=== PATIENT | female | born 1950 | race Caucasian/White ===

== ENCOUNTER 2016-08-21 16:04 | Emergency (ER) | payer OTHER, MEDICARE ==
[~2016-08-21 16:04] MED LIST: /ESOM40CA PO; ASPI81TA7 PO; FLUO20CA8 PO; JANU100T PO; LIPI80TA PO; LYRI150C PO; META800T82 PO; METATAB PO; METF500T PO; NITR0.4D6 TD; PLAQ200T PO; TRAM37.5 PO; UREA CREAM TOP; VERA27.5; VICOBULK PO; VITAD1000T PO; VOLTAREN GEL TOP; XANA0.5T PO; ZEST20TA8 PO
[2016-08-21] MEDS ORDERED: IBUPROFEN 600 MG TAB As Ordered ONE (18:28)
--- NOTE | 2016-08-21 18:44 | REP ---
Right wrist four views: Mineralization joint spaces are normal. There is no fracture or dislocation. There are calcifications distal to the ulnar styloid process likely degenerative ligamentous calcifications or vascular calcified atheroma. 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 Impression: No fracture or dislocation. Signed by Mor Sabillon MD 08/21/2016 06:37 P
--- NOTE | 2016-08-21 18:47 | REP ---
Right hip three views including AP pelvis and AP and frog-leg views of the hip. There are no comparisons. AP pelvis: No pelvic fractures are identified. There postsurgical disc spacers in the L5 S1 disc space. There are pelvic calcifications likely phleboliths. No right or left hip fractures are identified. Sacroiliac articulations are unremarkable. Impression: No pelvic fractures are identified. Left hip AP and frog-leg views: There is no fracture or dislocation. No femoral head deformity. No calcifications or foreign bodies. Impression: Negative left hip. Signed by Mor Sabillon MD 08/21/2016 06:39 P
--- NOTE | 2016-08-21 19:08 | EDDOCDS ---
Physician Documentation [facility] Name: Anel Houser Age: 65 yrs Sex: Female : 1950 Arrival Date: 08/21/2016 Time: 16:04 Bed I9 / 22 Private MD: Adrian Lin MD Disposition: 08/21/16 18:47 Discharged to Home/Self Care. Impression: Sprain of other part of right wrist and hand, Contusion of left hip. - Condition is Stable. - Discharge Instructions: Wrist Pain, Hip Pain. - Prescriptions for Ibuprofen 600 mg Oral Tablet - take 1 tablet by ORAL route every 6 hours As needed take with food; 30 tablet. - Medication Reconciliation, Local Pharmacy Hours form. - Follow up: Adrian Lin; When: As needed; Reason: Recheck today's complaints, Continuance of care. - Problem is new. - Symptoms are unchanged. Historical: - Allergies: Demerol (Vomit); Morphine (Vomit); PENICILLINS (Hives); - Home Meds: 1. Coreg Unknown Oral daily 2. hydroxychloroquine 200 mg oral tab 1 tab 2 times per day 3. Lipitor 20 mg Oral tab 1 tab once daily 4. lisinopril-hydrochlorothiazide 20-25 mg oral tab 1 tab once daily 5. Lyrica 150 mg Oral 2 times per day 6. metformin 500 mg Oral tr24 1 tab three times a day 7. Prozac 20 mg Oral cap 1 cap once daily 8. Reglan 10 mg Oral tab as needed 9. Xanax 0.5 mg Oral tab 1 tab daily 10. Januvia oral Unknown oral once daily 11. Zantac 150 mg oral cap 2 times per day - PMHx: Anxiety; Depression; Diabetes - NIDDM: controlled; Hypercholesterolemia; Hypertension; GERD; heart disease; - PSHx: Spinal Fusion; Cardiac stents (May 2004); Appendectomy; Arthroscopy, Knee- Left; Rotator Cuff Repair- Left; Arthroscopy, Knee- Right; Rotator Cuff Repair- Right; - Social history: Smoking status: Patient states was never smoker of tobacco. No barriers to communication noted, The patient speaks fluent Kyrgyz, Speaks appropriately for age. - Family history: Not pertinent. - : The pt / caregiver states he / she is not on anticoagulants. Home medication list is obtained from the patient. - Exposure Risk Screening:: None identified. Vital Signs: 08/21 16:06 BP 158 / 82; Pulse 68; Resp 16; Temp 98.2(O); Pulse Ox 100% on R/A; Weight 70.76 kg / elp 156 lbs (R); Height 5 ft. 0 in. (152.40 cm) (R); Pain 8/10; 19:02 BP 149 / 86; Pulse 77; Resp 16; Temp 97.0(O); Pulse Ox 100% on R/A; Pain 3/10; kpj 16:06 Body Mass Index 30.47 (70.76 kg, 152.40 cm) elp MDM: 18:14 Ibuprofen 600 mg PO once ordered. ke 18:17 Wrist, Complete Ordered. EDMS 18:17 Hip,AP,LAT to include Pelvis Ordered. EDMS Administered Medications: 18:30 Drug: Ibuprofen 600 mg [ibuprofen 600 mg tablet (1 tabs)] Route: PO; [facility] Signatures: Dispatcher [employer] EDMS Mai Montgomery RN RN kpj Michelson, Staci, RN RN srm Elsner, Karl, Angela Finn RN, mcp EDWARD
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
--- NOTE | 2016-08-23 20:08 | EDDOCDS ---
Physician Documentation [facility] Name: Anel Houser Age: 65 yrs Sex: Female : 1950 Arrival Date: 08/21/2016 Time: 16:04 Bed I9 / 22 Private MD: Adrian Lin MD Disposition: 08/21/16 18:47 Discharged to Home/Self Care. Impression: Sprain of other part of right wrist and hand, Contusion of left hip. - Condition is Stable. - Discharge Instructions: Wrist Pain, Hip Pain. - Prescriptions for Ibuprofen 600 mg Oral Tablet - take 1 tablet by ORAL route every 6 hours As needed take with food; 30 tablet. - Medication Reconciliation, Local Pharmacy Hours form. - Follow up: Adrian Lin; When: As needed; Reason: Recheck today's complaints, Continuance of care. - Problem is new. - Symptoms are unchanged. Historical: - Allergies: Demerol (Vomit); Morphine (Vomit); PENICILLINS (Hives); - Home Meds: 1. Coreg Unknown Oral daily 2. hydroxychloroquine 200 mg oral tab 1 tab 2 times per day 3. Lipitor 20 mg Oral tab 1 tab once daily 4. lisinopril-hydrochlorothiazide 20-25 mg oral tab 1 tab once daily 5. Lyrica 150 mg Oral 2 times per day 6. metformin 500 mg Oral tr24 1 tab three times a day 7. Prozac 20 mg Oral cap 1 cap once daily 8. Reglan 10 mg Oral tab as needed 9. Xanax 0.5 mg Oral tab 1 tab daily 10. Januvia oral Unknown oral once daily 11. Zantac 150 mg oral cap 2 times per day - PMHx: Anxiety; Depression; Diabetes - NIDDM: controlled; Hypercholesterolemia; Hypertension; GERD; heart disease; - PSHx: Spinal Fusion; Cardiac stents (May 2004); Appendectomy; Arthroscopy, Knee- Left; Rotator Cuff Repair- Left; Arthroscopy, Knee- Right; Rotator Cuff Repair- Right; - Social history: Smoking status: Patient states was never smoker of tobacco. No barriers to communication noted, The patient speaks fluent Korean, Speaks appropriately for age. - Family history: Not pertinent. - : The pt / caregiver states he / she is not on anticoagulants. Home medication list is obtained from the patient. - Exposure Risk Screening:: None identified. Vital Signs: 08/21 16:06 BP 158 / 82; Pulse 68; Resp 16; Temp 98.2(O); Pulse Ox 100% on R/A; Weight 70.76 kg / elp 156 lbs (R); Height 5 ft. 0 in. (152.40 cm) (R); Pain 8/10; 19:02 BP 149 / 86; Pulse 77; Resp 16; Temp 97.0(O); Pulse Ox 100% on R/A; Pain 3/10; kpj 16:06 Body Mass Index 30.47 (70.76 kg, 152.40 cm) elp MDM: 18:14 Ibuprofen 600 mg PO once ordered. ke 18:17 Wrist, Complete Ordered. EDMS 18:17 Hip,AP,LAT to include Pelvis Ordered. EDMS 08/22 12:46 T-Sheet-- Draft Copy was scanned into [employer] and attached to record. gb Administered Medications: 08/21 18:30 Drug: Ibuprofen 600 mg [ibuprofen 600 mg tablet (1 tabs)] Route: PO; mcp Signatures: Dispatcher [employer] EDIN Mai Montgomery RN RN kpj Michelson, Staci, RN RN srm Zainab Patiño, Reg Reg Bob Serrano FNP FNP ke Peters, Mary RN mcp The chart was reviewed and I authenticate all verbal orders and agree with the evaluation and treatment provided.Attachments: 08/22 12:46 T-Sheet-- Draft Copy gb Chart Complete MTDD
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
--- NOTE | 2016-08-23 20:08 | EDDOCDS ---
Physician Documentation [facility] Name: Anel Houser Age: 65 yrs Sex: Female : 1950 Arrival Date: 08/21/2016 Time: 16:04 Bed I9 / 22 Private MD: Adrian Lin MD Disposition: 08/21/16 18:47 Discharged to Home/Self Care. Impression: Sprain of other part of right wrist and hand, Contusion of left hip. - Condition is Stable. - Discharge Instructions: Wrist Pain, Hip Pain. - Prescriptions for Ibuprofen 600 mg Oral Tablet - take 1 tablet by ORAL route every 6 hours As needed take with food; 30 tablet. - Medication Reconciliation, Local Pharmacy Hours form. - Follow up: Adrian Lin; When: As needed; Reason: Recheck today's complaints, Continuance of care. - Problem is new. - Symptoms are unchanged. Historical: - Allergies: Demerol (Vomit); Morphine (Vomit); PENICILLINS (Hives); - Home Meds: 1. Coreg Unknown Oral daily 2. hydroxychloroquine 200 mg oral tab 1 tab 2 times per day 3. Lipitor 20 mg Oral tab 1 tab once daily 4. lisinopril-hydrochlorothiazide 20-25 mg oral tab 1 tab once daily 5. Lyrica 150 mg Oral 2 times per day 6. metformin 500 mg Oral tr24 1 tab three times a day 7. Prozac 20 mg Oral cap 1 cap once daily 8. Reglan 10 mg Oral tab as needed 9. Xanax 0.5 mg Oral tab 1 tab daily 10. Januvia oral Unknown oral once daily 11. Zantac 150 mg oral cap 2 times per day - PMHx: Anxiety; Depression; Diabetes - NIDDM: controlled; Hypercholesterolemia; Hypertension; GERD; heart disease; - PSHx: Spinal Fusion; Cardiac stents (May 2004); Appendectomy; Arthroscopy, Knee- Left; Rotator Cuff Repair- Left; Arthroscopy, Knee- Right; Rotator Cuff Repair- Right; - Social history: Smoking status: Patient states was never smoker of tobacco. No barriers to communication noted, The patient speaks fluent Faroese, Speaks appropriately for age. - Family history: Not pertinent. - : The pt / caregiver states he / she is not on anticoagulants. Home medication list is obtained from the patient. - Exposure Risk Screening:: None identified. Vital Signs: 08/21 16:06 BP 158 / 82; Pulse 68; Resp 16; Temp 98.2(O); Pulse Ox 100% on R/A; Weight 70.76 kg / elp 156 lbs (R); Height 5 ft. 0 in. (152.40 cm) (R); Pain 8/10; 19:02 BP 149 / 86; Pulse 77; Resp 16; Temp 97.0(O); Pulse Ox 100% on R/A; Pain 3/10; kpj 16:06 Body Mass Index 30.47 (70.76 kg, 152.40 cm) elp MDM: 18:14 Ibuprofen 600 mg PO once ordered. ke 18:17 Wrist, Complete Ordered. EDMS 18:17 Hip,AP,LAT to include Pelvis Ordered. EDMS 08/22 12:46 T-Sheet-- Draft Copy was scanned into [employer] and attached to record. gb Administered Medications: 08/21 18:30 Drug: Ibuprofen 600 mg [ibuprofen 600 mg tablet (1 tabs)] Route: PO; mcp Signatures: Dispatcher [employer] EDNY Mai Montgomery RN RN kpj Michelson, Staci, RN RN srm Zainab Patiño, Reg Reg Bob Serrano FNP FNP ke Peters, Mary RN mcp The chart was reviewed and I authenticate all verbal orders and agree with the evaluation and treatment provided.Attachments: 08/22 12:46 T-Sheet-- Draft Copy gb Chart Complete MTDD
== END 2016-08-21 19:07 | disposition home or self-care (01) ==
LOC: M ED 16:04
DX: S63.8X1A Sprain of other part of right wrist and hand, initial encounter (principal); S70.02XA Contusion of left hip, initial encounter; W50.0XXA Accidental hit or strike by another person, initial encounter; Y92.512 Supermarket, store or market as the place of occurrence of the external cause; Y93.89 Activity, other specified; Y99.8 Other external cause status; F41.9 Anxiety disorder, unspecified; F32.9 Major depressive disorder, single episode, unspecified; E11.9 Type 2 diabetes mellitus without complications; E78.00 Pure hypercholesterolemia, unspecified; I10 Essential (primary) hypertension; K21.9 Gastro-esophageal reflux disease without esophagitis; I25.10 Atherosclerotic heart disease of native coronary artery without angina pectoris; Z79.899 Other long term (current) drug therapy; Z88.8 Allergy status to other drugs, medicaments and biological substances; Z88.0 Allergy status to penicillin; Z88.5 Allergy status to narcotic agent; Z95.9 Presence of cardiac and vascular implant and graft, unspecified

== ENCOUNTER → 2017-04-05 | Outpatient (REF) | payer MEDICARE, OTHER | LOC: M LAB REF 17:04 | PROVIDERS: ATTEND Otolaryngology | DX: D10.30 Benign neoplasm of unspecified part of mouth (principal) ==

== ENCOUNTER 2017-04-07 13:05 | Emergency (ER) | payer MEDICARE, OTHER ==
[~2017-04-07] VITALS: Ht 152.4 cm; Wt 69.5 kg
[2017-04-07] MEDS ORDERED: ASPIRIN 81 MG CHEW TABLET PO ONE (13:45)
[2017-04-07 14:16] LABS: BASO # 0.1 K/mm3 (0.0-0.2); BASO % 1.2 % (0.0-1.0); EOS # 0.2 K/mm3 (0.0-0.50); EOS % 4.1 % (0.0-3.0); LARGE UNSTAINED CELL # 0.1 K/mm3 (0.0-0.4); LARGE UNSTAINED CELL % 2.5 % (0.0-4.0); LYMPH # 1.1 K/mm3 (1.5-4.5); LYMPH % 19.5 % (24.0-44.0); MEAN CORPUSCULAR HEMOGLOBIN 27.8 pg (27.0-33.0); MEAN CORPUSCULAR HGB CONC 33.6 g/dl (32.0-36.5); MEAN CORPUSCULAR VOLUME 82.8 fl (80.0-96.0); MONO # 0.3 K/mm3 (0.0-0.8); MONO % 4.3 % (0.0-5.0); NEUTROPHILS % 68.4 % (36.0-66.0); PLATELET COUNT, AUTOMATED 239 k/mm3 (150-450); RED CELL DISTRIBUTION WIDTH 13.7 % (11.5-14.5); WHITE BLOOD COUNT 5.8 K/mm3 (4.0-10.0)
[2017-04-07 14:21] LABS: INR 0.96
[2017-04-07 14:38] LABS: ALBUMIN 3.7 GM/DL (3.2-5.2); ALBUMIN/GLOBULIN RATIO 1.03 (1.00-1.93); ALKALINE PHOSPHATASE 59 U/L (45-117); ALT/SGPT 53 U/L (12-78); ANION GAP 9 MEQ/L (8-16); AST/SGOT 23 U/L (15-37); BILIRUBIN,DIRECT < 0.1 MG/DL (0.0-0.2); BILIRUBIN,TOTAL 0.3 MG/DL (0.2-1.0); BLOOD UREA NITROGEN 11 MG/DL (7-18); CARBON DIOXIDE LEVEL 28 MEQ/L (21-32); CHLORIDE LEVEL 106 MEQ/L (98-107); CREATININE FOR GFR 0.77 MG/DL (0.55-1.02); FREE T4 0.87 NG/DL (0.76-1.46); GLOMERULAR FILTRATION RATE > 60.0 (>45); GLUCOSE, FASTING 109 MG/DL (80-110); POTASSIUM SERUM 4.1 MEQ/L (3.5-5.1); SODIUM LEVEL 143 MEQ/L (136-145); TOTAL PROTEIN 7.3 GM/DL (6.4-8.2)
--- NOTE | 2017-04-07 14:44 | REP ---
Clinical: Right upper quadrant pain. Technique: Real time de la torre scale ultrasound examination using curved array transducer. Findings: Diffuse fatty infiltration to the liver is appreciated with poor through transmission. No obvious focal hepatic lesion identified. Visualized portions of the pancreas are unremarkable but limited due to interposed bowel gas. Visualized portions of the gallbladder appear normal and without wall thickening or obvious gallstones however the neck of the gallbladder is incompletely evaluated due to interposed bowel gas and poor through transmission. No biliary ductal dilatation is appreciated and the common bile duct measures 3.2 mm diameter. The right kidney is normal in reniform shape without hydronephrosis and measures 11.1 x 4.1 x 4.6 cm. No ascites. Impression: Limited examination. Fatty infiltration to the liver without focal hepatic lesion. Incomplete evaluation of the gallbladder neck. However no wall thickening, pericholecystic fluid or biliary ductal dilatation is appreciated. Signed by Scot Santoyo MD 04/07/2017 02:36 P
[2017-04-07] MEDS: NITROGLYCERIN 0.4 MG SUBL TABLET SL PRN ×2 (14:45→14:50)
[2017-04-07 14:50] VITALS: BP 125/65
--- NOTE | 2017-04-07 14:55 | REP ---
Clinical: Chest pain . Comparison: 06/09/2012 . Technique: PA and lateral. Findings: The mediastinum and cardiac silhouette are normal. The lung ring are clear and without acute consolidation, effusion, or pneumothorax. The skeletal structures are intact and normal. Impression: 1. No acute cardiopulmonary process. Signed by Scot Santoyo MD 04/07/2017 02:47 P
[2017-04-07] MEDS ORDERED: ISOVUE-370 76% 100ML VIAL (Q9967) As Ordered ONE (15:14)
--- NOTE | 2017-04-07 16:20 | REP ---
Clinical: Acute chest pain and shortness of breath . Technique: Axial contrast enhanced images from the thoracic inlet to the upper abdomen using 100 ml Isovue 370 intravenous contrast material with multiplanar re-formations. Findings: Satisfactory enhancement of the pulmonary vasculature is achieved and no filling defects are identified to suggest pulmonary embolus. Further evaluation of the mediastinum demonstrates atherosclerotic changes to the thoracic aorta and coronary arteries without aortic aneurysm/dissection or cardiomegaly. No pericardial effusion. The bilateral lung ring are well aerated without consolidation pleural effusion or pneumothorax. Minimal lingular and right basilar chronic changes noted. Tracheobronchial tree is patent. No adenopathy noted. Surrounding musculoskeletal structures intact. Impression: No evidence for pulmonary embolus. No acute mediastinal or pleural parenchymal process. Minimal chronic basilar scarring. Signed by Scot Santoyo MD 04/07/2017 04:12 P
[2017-04-07 18:09] VITALS: BP 128/61
--- NOTE | 2017-04-08 07:57 | ECGEPIP ---
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
== END 2017-04-07 18:10 | disposition home or self-care (01) ==
LOC: M ED 13:05
DX: R07.9 Chest pain, unspecified (principal); E11.9 Type 2 diabetes mellitus without complications; I10 Essential (primary) hypertension; J84.10 Pulmonary fibrosis, unspecified; E78.5 Hyperlipidemia, unspecified; G47.30 Sleep apnea, unspecified; Z79.899 Other long term (current) drug therapy; Z79.82 Long term (current) use of aspirin; Z79.84 Long term (current) use of oral hypoglycemic drugs; Z88.8 Allergy status to other drugs, medicaments and biological substances; Z88.5 Allergy status to narcotic agent; Z88.0 Allergy status to penicillin; I25.2 Old myocardial infarction; Z95.5 Presence of coronary angioplasty implant and graft
CPT/HCPCS: 71020; 71275; 76705; 80048; 80076; 82550; 82553; 83690; 83880; 84439; 84443; 84484; 85025; 85610; 85730; 93005; 93041; 94760; 99284; Q9967

== ENCOUNTER → 2017-06-05 | Outpatient (CLI) | payer MEDICARE ==
--- NOTE | 2017-06-05 10:43 | REP ---
HIDA SCAN WITH GALLBLADDER EJECTION FRACTION: Following the intravenous administration of 6.6 millicuries technetium 99m Mebrofenin, multiple images of the right upper quadrant are performed every 5 minutes for a period of 1 hour. The gallbladder visualized at 15 minutes post injection. There is no biliary to bowel transit by 1 hour, which may represent a hypertonic sphincter of Oddi. At 1 hour vasquez, 8 ounces of Ensure Enlive is ingested. Further imaging performed for 1 hour. There is biliary to bowel transit at about 5 minutes after ingestion of the Ensure. Gallbladder activity is measured and the gallbladder ejection fraction is 97%, which is normal. IMPRESSION: Delayed biliary to bowel transit may indicate a hypertonic sphincter of Oddi. Normal gallbladder ejection fraction. Signed by Mor Gallegos MD 06/05/2017 11:48 A
== END ==
LOC: M RAD 07:41
PROVIDERS: ATTEND Internal Medicine Gastroenterology
DX: R10.9 Unspecified abdominal pain (principal)
CPT/HCPCS: 78227; A9537; J2805

== ENCOUNTER → 2017-10-31 | Outpatient (REF) | payer MEDICARE, MEDICAID ==
[2017-11-05 14:13] LABS: HPV HYBRID CAPTURE II Negative (Negative)
== END ==
LOC: M SFHCWAGY 14:54
DX: Z12.4 Encounter for screening for malignant neoplasm of cervix (principal)
CPT/HCPCS: G0123

== ENCOUNTER → 2017-10-31 | Outpatient (CLI) | payer MEDICARE, MEDICAID | LOC: M WHC 14:26 | DX: Z01.419 Encounter for gynecological examination (general) (routine) without abnormal findings (principal); Z12.31 Encounter for screening mammogram for malignant neoplasm of breast; Z78.0 Asymptomatic menopausal state; Z80.0 Family history of malignant neoplasm of digestive organs; Z92.23 Personal history of estrogen therapy | CPT/HCPCS: G0123 ==

== ENCOUNTER 2018-10-27 16:50 | Inpatient (IN) | payer MEDICAID, MEDICARE ==
[~2018-10-27] VITALS: Ht 152.4 cm; Wt 70.0 kg
[~2018-10-27 16:50] MED LIST changes: -/ESOM40CA PO; +HYDR12.55 PO; +METF10004 PO; +NEXI1CAP3 PO; +PERC5TAB12 PO
[2018-10-27] MEDS ORDERED: [UNRECOGNIZED DRUG - OTHER] SQ (17:04)
[2018-10-27] MEDS ORDERED: CARVEDILOL PO (17:04)
[2018-10-27] MEDS ORDERED: ONDANSETRON 4MG/2ML VIAL (J2405) IV ONE ×2 (17:45→21:15)
[2018-10-27 17:47] LABS: BASO # 0.1 10^3/uL (0.0-0.2); BASO % 0.4 % (0.0-1.0); EOS # 0.2 10^3/uL (0.0-0.50); EOS % 1.5 % (0.0-3.0); HEMATOCRIT 40.4 % (36.0-47.0); HEMOGLOBIN 12.8 g/dl (12.0-15.5); LYMPH # 0.9 10^3/uL (1.5-4.5); LYMPH % 6.7 % (24.0-44.0); MEAN CORPUSCULAR HEMOGLOBIN 26.1 pg (27.0-33.0); MEAN CORPUSCULAR HGB CONC 31.7 g/dl (32.0-36.5); MEAN CORPUSCULAR VOLUME 82.3 fl (80.0-96.0); MONO # 0.7 10^3/uL (0.0-0.8); MONO % 5.2 % (0.0-5.0); NEUTROPHILS # 11.8 10^3/uL (1.8-7.7); NEUTROPHILS % 85.8 % (36.0-66.0); PLATELET COUNT, AUTOMATED 294 10^3/uL (150-450); RED BLOOD COUNT 4.91 10^6/uL (4.00-5.40); WHITE BLOOD COUNT 13.7 10^3/uL (4.0-10.0)
[2018-10-27 18:03] LABS: ALT/SGPT 55 U/L (12-78); BILIRUBIN,DIRECT 0.1 MG/DL (0.0-0.2); BILIRUBIN,TOTAL 0.4 MG/DL (0.2-1.0); BLOOD UREA NITROGEN 16 MG/DL (7-18); CARBON DIOXIDE LEVEL 27 MEQ/L (21-32); CHLORIDE LEVEL 104 MEQ/L (98-107); CPK CREATINE PHOSPHOKINASE 180 U/L (26-192); CREATININE FOR GFR 0.86 MG/DL (0.55-1.30); GLOMERULAR FILTRATION RATE > 60.0 (>45); GLUCOSE, FASTING 167 MG/DL (70-100); LIPASE 255 U/L (73-393); MB/CK RELATIVE INDEX 1.11 (< OR =4); POTASSIUM SERUM 3.9 MEQ/L (3.5-5.1); SODIUM LEVEL 137 MEQ/L (136-145); TOTAL PROTEIN 7.7 GM/DL (6.4-8.2); TROPONIN I < 0.02 NG/ML (< 0.10)
--- NOTE | 2018-10-27 18:06 | REP ---
Portable chest, 05:41 p.m., single AP upright view: Comparison is 04/07/2017. There is discoid atelectasis inferiorly in the left lung. There is mild interstitial coarsening compatible with vascular engorgement. There are no masses or nodules. No pleural effusions. Cardiac size is upper normal. Electronically Signed by Mor Sabillon MD 10/27/2018 05:58 P
[2018-10-27] MEDS ORDERED: ISOVUE-370 76% 100ML VIAL (Q9967) As Ordered ONE (18:22)
[2018-10-27 18:52] LABS: NT-PRO BNP 154 PG/ML (<125)
--- NOTE | 2018-10-27 19:41 | REPVR ---
EXAM: CT Angiography Chest With Contrast EXAM DATE/TIME: 10/27/2018 6:27 PM CLINICAL HISTORY: 67 years old, female; Signs and symptoms; Other: R/O pe TECHNIQUE: Imaging protocol: Axial computed tomographic angiography images of the chest with intravenous contrast using CT angiography protocol. Coronal and sagittal reformatted images were created and reviewed. 3D rendering: MIP reconstructed images were created and reviewed. Radiation optimization: All CT scans at this facility use at least one of these dose optimization techniques: automated exposure control; mA and/or kV adjustment per patient size (includes targeted exams where dose is matched to clinical indication); or iterative reconstruction. Contrast material: ISOVUE 370 Contrast volume: 100 ml Contrast route: IV COMPARISON: CT ANGIO CHEST 04/07/2017 3:31 PM FINDINGS: Pulmonary arteries: There is opacification of the pulmonary arteries with no evidence of pulmonary embolus. Aorta: There is opacification of the aorta which appears intact. Lungs: There is a small amount of fluid in the major and minor fissures. There are hazy/patchy areas of interstitial density throughout both lungs which may represent interstitial infiltrate or interstitial edema/patchy congestive change. Pleural space: There is no evidence of pneumothorax. Heart: There is mild cardiomegaly. There is a small amount of pericardial effusion. Lymph nodes: Unremarkable. No enlarged lymph nodes. Bones/joints: Prominent osteophyte formation of the thoracic spine on the right. Soft tissues: Unremarkable. IMPRESSION: 1. No evidence of pulmonary embolus. 2. There is hazy and patchy interstitial density throughout both lungs which could be patchy edema or patchy interstitial infiltrate. This is throughout both lungs. 3. Small amount of fluid in the major and minor fissures. Electronically signed by: Paul Owen On 10/27/2018 19:41:20 PM
--- NOTE | 2018-10-27 19:56 | REPVR ---
EXAM: CT Abdomen and Pelvis With Contrast EXAM DATE/TIME: 10/27/2018 6:27 PM CLINICAL HISTORY: 67 years old, female; Pain; Abdominal pain; Epigastric; Prior surgery; Surgery date: 6+ months; Surgery type: Hysterectomy; Additional info: Upper abd pain TECHNIQUE: Imaging protocol: Axial computed tomography images of the abdomen and pelvis with intravenous contrast. Coronal and sagittal reformatted images were created and reviewed. Radiation optimization: All CT scans at this facility use at least one of these dose optimization techniques: automated exposure control; mA and/or kV adjustment per patient size (includes targeted exams where dose is matched to clinical indication); or iterative reconstruction. Contrast material: ISOVUE 370 Contrast volume: 100 ml Contrast route: IV COMPARISON: CT ABD PELVIS W/O FOL BY WIT 10/18/2015 1:17 PM FINDINGS: Lower thorax: No acute findings. ABDOMEN: Liver: There is severe fatty infiltration of the liver. Gallbladder and bile ducts: Normal common bile duct. Pancreas: Normal appearing pancreas. Spleen: Normal appearing spleen. Adrenals: Normal appearing adrenal glands. Kidneys and ureters: There is enhancement of both kidneys. There is no evidence of obstruction of the right or left ureter. Stomach and bowel: The cecum is in the right pelvis and there is no evidence of inflammation in the region of the cecum. There is a large amount of secretions with an air-fluid level within the stomach. Appendix: No evidence of appendicitis. PELVIS: Bladder: Normal appearing urinary bladder. Reproductive: There are follicular cysts in both ovaries. ABDOMEN and PELVIS: Intraperitoneal space: There is no evidence of pneumoperitoneum. Bones/joints: Degenerative changes of the lumbar spine. Soft tissues: Unremarkable. Vasculature: There is opacification of the aorta and appearing normal in size. There is opacification of the SMA. Lymph nodes: There is no evidence of lymphadenopathy. Other findings: There is opacification of the SMV. IMPRESSION: 1. Severe fatty infiltration of the liver. 2. Large air-fluid level within the stomach. Electronically signed by: Paul Owen On 10/27/2018 19:55:53 PM
[2018-10-27] MEDS: HYDROXYCHLOROQUINE 200 MG TAB PO SCH (21:00)
[2018-10-27 21:28] LABS: CPK CREATINE PHOSPHOKINASE 150 U/L (26-192); MB/CK RELATIVE INDEX 1.33 (< OR =4); TROPONIN I < 0.02 NG/ML (< 0.10)
--- NOTE | 2018-10-27 21:37 | ECGEPIP ---
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
--- NOTE | 2018-10-27 21:44 | ECGEPIP ---
Stationary ECG Study [facility] - ED Test Date: 2018-10-27 Pat Name: BERTHA SMITH Department: Room: - Gender: F [employer] Measures: : 1950 Requested By: Dimas Lyman Order Number: [id number] Reading MD: Dimas Manzanares Measurements Intervals [place] Rate: 102 P: 55 [place]: 167 QRS: 17 QRSD: 78 T: 48 QT: 357 QTc: 467 Interpretive Statements SINUS TACHYCARDIA POSSIBLE LEFT ATRIAL ENLARGEMENT NSTTW ABNORMALITIES SIMILAR TO PRIOR ON SAME DATE Electronically Signed On 10-27-2018 21:44:00 EDT by Dimas Manzanares
[2018-10-27] MEDS ORDERED: NS 1,000 ML IV SCH (21:54)
[2018-10-27] MEDS ORDERED: LevoFLOXacin IV 750 MG in APPROPRIATE DILUENT 1 EA IV ONE (22:00)
[2018-10-27] MEDS ORDERED: CLOB0.0548 TOP (22:51)
[2018-10-27] MEDS ORDERED: ALL10TAB28 PO (22:51)
[2018-10-27] MEDS ORDERED: CARV12.5 PO (22:51)
[2018-10-27] MEDS ORDERED: NITR4TASL SL (22:51)
[2018-10-27] MEDS ORDERED: METACAP3 PO (22:51)
[2018-10-27] MEDS ORDERED: FLUO20CA8 PO (22:51)
[2018-10-27] MEDS ORDERED: BASA100I SC (22:51)
[2018-10-27] MEDS ORDERED: VITAD1000T PO (22:51)
[2018-10-27] MEDS ORDERED: DOCU100C16 PO (22:51)
[2018-10-27] MEDS ORDERED: ATOR40TA75 PO (22:51)
[2018-10-27] MEDS ORDERED: LACT10SO29 PO (22:51)
[2018-10-27] MEDS ORDERED: HYDR25TAB PO (22:51)
[2018-10-27] MEDS ORDERED: JANU100T PO (22:51)
[2018-10-27] MEDS ORDERED: METF10004 PO (22:51)
[2018-10-27] MEDS ORDERED: NEXI40CA PO (22:51)
[2018-10-27] MEDS ORDERED: HYDR200T3 PO (22:51)
[2018-10-27] MEDS ORDERED: LYRI150C PO (22:51)
[2018-10-27] MEDS ORDERED: LISI-672 PO (22:51)
[2018-10-28] VITALS (7 sets, daily range): BP systolic 119–167; BP diastolic 57–74
[2018-10-28] MEDS ORDERED: VANCOMYCIN ORAL SOL 250MG/5ML ORAL SYRINGE PO SCH
[2018-10-28] MEDS ORDERED: LOMOTIL 2.5MG/0.025MG TABLET PO PRN (01:00)
[2018-10-28] MEDS ORDERED: GLUCOSE 4 GM CHEW TABLET PO PRN ×2 (01:30→06:15)
[2018-10-28] MEDS ORDERED: DEXTROSE 50% 50 ML SYRINGE IV PRN ×2 (01:30→06:15)
[2018-10-28] MEDS ORDERED: GLUCAGON FOR INJ 1 MG VIAL (J1610) SC PRN ×2 (01:30→06:15)
--- NOTE | 2018-10-28 01:41 | HPEPDOC ---
[facility] Medical History & Physical Date of Admission Oct 28, 2018 History and Physical CHIEF COMPLAINT: nausea/vomiting/diarrhea and chest pain HISTORY OF PRESENT ILLNESS: Anel Houser is a 67 YO F with history of CAD, hypertension and diabetes who presents with 2 days of nausea, vomiting, diarrhea and chest pain. The patient reports that she has a problem with chronic constipation, but about 2 days ago she started having watery diarrhea and nausea. She began throwing up yesterday and subsequently has felt very lightheaded and weak. She also reports midsternal chest pain that is constant and the same at rest and with activity. The chest pain has been continuous and she describes it as starting in her upper back and radiating forward. She has thrown up about 4-5 times today. She has not been sick recently and denies any fevers, chills, SOB. PAST MEDICAL HISTORY: 1. CAD and [place] s/p 1 stent (follows with Dr Polk) 2. Diabetes (on insulin) with peripheral neuropathy 3. Hypertension 4. Rheumatoid arthritis 5. Chronic constipation PAST SURGICAL HISTORY: 1. R knee arthroscopic surgery 2. Hysterectomy 3. Anterior spinal fusion 2000 4. Rotator cuff surgery 5. Cardiac stent placement, 1 vessel 6. Bladder mesh SOCIAL HISTORY: Lives in [place]. 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 Never smoker, Occasional drinker. No other drugs FAMILY HISTORY: noncontributory ALLERGIES: Please see below. REVIEW OF SYSTEMS: A 10-point review of system was performed and is negative other than what was mentioned in the HPI. HOME MEDICATIONS: Please see below. PHYSICAL EXAMINATION: VITAL SIGNS: Temperature 98.1, pulse 83, respiratory rate 18, blood pressure 139/55, pulse oximetry 94% on 2LNC. GENERAL APPEARANCE: laying flat in bed, appears very pale, NG tube in place draining yellowish brown fluid, does not appear in any acute distress HEENT: moist mucus membranes, fair dentition, no thyromegaly CARDIOVASCULAR: RRR, no murmurs/rubs/gallops LUNGS: Some rhoncherous breath sounds at the bases bilaterally extending to middle lobes ABDOMEN: soft, nontender, +BS, no masses, no organomegaly MUSCULOSKELETAL: moves all extremities well EXTREMITIES: no clubbing/cyanosis/edema NEUROLOGICAL: No focal deficits appreciated PSYCHIATRIC: normal mood/affect LABORATORY DATA: See below. IMAGING: CXR: There is discoid atelectasis inferiorly in the left lung. There is mild interstitial coarsening compatible with vascular engorgement. There are no masses or nodules. No pleural effusions. Cardiac size is upper normal. CT-A: 1. No evidence of pulmonary embolus. 2. There is hazy and patchy interstitial density throughout both lungs which could be patchy edema or patchy interstitial infiltrate. This is throughout both lungs. 3. Small amount of fluid in the major and minor fissures. CT Abdomen: 1. Severe fatty infiltration of the liver. 2. Large air-fluid level within the stomach. ABDOMEN XRAY: Read pending MICROBIOLOGY: Please see below. ASSESSMENT: This is a 67 YO F with a history of CAD, diabetes and hypertension who presents with several days of nausea/vomiting/diarrhea and epigastric chest pain found to have patchy infiltrates and edema in her lungs bilaterally and air-fluid levels within the stomach concerning for gastroenteritis PLAN: 1. Gastroenteritis: patient has an elevated WBC and severe abdominal pain with air-fluid levels and intestinal inflammation. General surgery was called to evaluate the patient and recommended NG Tube placement and observation at this time -NG tube in place draining yellowish brown fluid. She has had about 700cc output in the ED -NPO and bowel rest for now -Pening Abdominal Xray read -patient's clinical exam not concerning for bowel perforation or other acute surgical pathology -Will continue with symptomatic treatment. All electrolytes are WNL -GI panel pending -Start Lamotil 2. Mild leukocytosis: WBC on admission found to be 13.7. The patient does has some bilateral infiltrates on CT-A concerning for pneumonia, but the patient is asymptomatic other than some midsternal chest pain, which may be of GI etiology -Empiric Levaquin for community-acquired pneumonia -S/p Levaquin in ED 3. Diabetes: -SSI with hypoglycemic protocol 4. HTN: -Continue home HCTZ and Coreg 5. Hyperlipidemia: -Continue lipitor 6. Rheumatoid Arthritis: -Continue home Plaquenil DVT Ppx: TEDs/sequentials CODE STATUS: FULL CODE Vital Signs Vital Signs Date Time Temp Pulse Resp B/P (MAP) Pulse Ox O2 Delivery O2 Flow Rate FiO2 10/27/18 19:15 98.1 83 18 139/55 (83) 94 Nasal Cannula 2.0 Laboratory Data Labs 24H Laboratory Tests 2 10/27/18 17:17: Immature Granulocyte % (Auto) 0.4, White Blood Count 13.7H, Red Blood Count 4.91, Hemoglobin 12.8, Hematocrit 40.4, Mean Corpuscular Volume 82.3, Mean Corpuscular Hemoglobin 26.1L, Mean Corpuscular Hemoglobin Concent 31.7L, Red Cell Distribution Width 14.3, Platelet Count 294, Neutrophils (%) (Auto) 85.8H, Lymphocytes (%) (Auto) 6.7L, Monocytes (%) (Auto) 5.2H, Eosinophils (%) (Auto) 1.5, Basophils (%) (Auto) 0.4, Neutrophils # (Auto) 11.8H, Lymphocytes # (Auto) 0.9L, Monocytes # (Auto) 0.7, Eosinophils # (Auto) 0.2, Basophils # (Auto) 0.1, Nucleated Red Blood Cells % (auto) 0.0, Anion Gap 6L, Glomerular Filtration Rate > 60.0, Calcium Level 9.0, Aspartate Amino Transf (AST/SGOT) 24, Alanine Aminotransferase (ALT/SGPT) 55, Alkaline Phosphatase 89, Total Bilirubin 0.4, Direct Bilirubin 0.1, Total Creatine Kinase 180, Creatine Kinase MB 2.0, Creatine Kinase MB Relative Index 1.11, Troponin I < 0.02, LJ-Map-C-Type Natriuretic Peptide 154H, Total Protein 7.7, Albumin 4.0, Albumin/Globulin Ratio 1.08, Lipase 255, Thyroid Stimulating Hormone (TSH) 1.490 10/27/18 20:57: Total Creatine Kinase 150, Creatine Kinase MB 2.0, Creatine Kinase MB Relative Index 1.33, Troponin I < 0.02 CBC/BMP Laboratory Tests 10/27/18 17:17 Red Blood Count 4.91, Mean Corpuscular Volume 82.3, Mean Corpuscular Hemoglobin 26.1 L, Mean Corpuscular Hemoglobin Concent 31.7 L, Red Cell Distribution Width 14.3, Neutrophils (%) (Auto) 85.8 H, Lymphocytes (%) (Auto) 6.7 L, Monocytes (%) (Auto) 5.2 H, Eosinophils (%) (Auto) 1.5, Basophils (%) (Auto) 0.4, Neutrophils # (Auto) 11.8 H, Lymphocytes # (Auto) 0.9 L, Monocytes # (Auto) 0.7, Eosinophils # (Auto) 0.2, Basophils # (Auto) 0.1 Microbiology Microbiology 10/27/18 Blood Culture, Received Pending 10/27/18 Blood Culture, Received Pending Home Medications Scheduled Atorvastatin Calcium (Atorvastatin Calcium) 40 Mg Tablet, 40 MG PO DAILY Carvedilol (Carvedilol) 12.5 Mg Tablet, 12.5 MG PO BID Cetirizine HCl (Cetirizine HCl) 10 Mg Tablet, 10 MG PO DAILY Docusate Sodium (Docusate Sodium) 100 Mg Capsule, 200 MG PO DAILY Esomeprazole Magnesium (Nexium) 40 Mg Capsule.dr, 40 MG PO BID Fluoxetine Hcl (Fluoxetine HCl) 20 Mg Capsule, 20 MG PO DAILY Hydrochlorothiazide (Hydrochlorothiazide) 25 Mg Tablet, 25 MG PO DAILY Hydroxychloroquine Sulfate (Hydroxychloroquine Sulfate) 200 Mg Tablet, 200 MG PO BID Insulin Glargine,Hum.rec.anlog (Basaglar Kwikpen U-100) 100 Unit/1 Ml Insuln.pen, 20 UNIT SC QHS Levomefolate/B6/B12/Algal Oil (Metanx Capsule) 1 Each Capsule, 1 CAP PO DAILY Lisinopril (Lisinopril) 30 Mg Tablet, 30 MG PO DAILY Metformin HCl (Metformin HCl) 1,000 Mg Tablet, 1,000 MG PO BID Pregabalin (Lyrica) 150 Mg Capsule, 150 MG PO BID Sitagliptin Phosphate (Januvia) 100 Mg Tablet, 100 MG PO DAILY Vitamin D (Vitamin D3) 1,000 Unit Tablet, 1,000 UNITS PO DAILY Scheduled PRN Clobetasol Propionate/Emoll (Clobetasol Emollient 0.05% Crm) 15 Gm Cream..g., 1 DOSE TOP BID PRN for DRY SKIN Lactulose (Lactulose) 10 Gm/15 Ml Solution, 15 ML PO DAILY PRN for CONSTIPATION Nitroglycerin (Nitrostat) 0.4 Mg Tab.subl, 0.4 MG SL NITRO PRN for CHEST PAIN Allergies Coded Allergies: Penicillins (Verified Allergy, Intermediate, hives, 10/27/18) meperidine (Verified Allergy, Unknown, 10/27/18) morphine (Verified Adverse Reaction, Intermediate, "sick", 10/27/18) GME ATTESTATION GME ATTESTATION My faculty preceptor for this patient encounter was physically present during the encounter and was fully available. All aspects of the patient interview, examination, medical decision making process, and medical care plan development were reviewed and approved by the faculty preceptor. The faculty preceptor is aware and concurs with the plan as stated in the body of this note and will attest to such by his/her cosignature. ATTENDING NOTE ATTENDING ATTESTATION: I discussed and reviewed the findings and plan with resident. I have personally assessed patient at bedside and agreed with resident's assessment and plans. BROWN RANKIN MD Oct 28, 2018 01:40 BART HUBBARD MD Oct 28, 2018 06:36
[2018-10-28] MEDS: PANTOPRAZOLE 40MG TAB (PROTONIX) PO SCH ×3 (03:02→20:05)
[2018-10-28] MEDS: PREGABALIN 75 MG CAP(LYRICA) PO SCH ×3 (03:02→20:05)
[2018-10-28] MEDS: CARVedilol 12.5 MG TAB PO SCH ×3 (03:03→20:06)
[2018-10-28] MEDS: NS 1,000 ML IV SCH ×3 (03:04→19:18)
[2018-10-28] MEDS ORDERED: metroNIDAZOLE (FLAGYL) 500 MG TAB PO SCH (06:00)
[2018-10-28] MEDS: HumaLOG INSULIN (NovoLOG) PER UNIT SC SCH ×3 (06:32→16:53)
--- NOTE | 2018-10-28 07:28 | REP ---
Supine abdomen single AP view: There is a nasogastric tube with the tip terminating satisfactorily in the abdomen on the left. There are mildly distended bowel loops in a nonspecific pattern. There is opacification of the renal calyces and pelves bilaterally, likely secondary to intravenous contrast for the CT earlier this same date. There are no calcifications. Skeletal structures are unremarkable. Impression: Nasogastric tube tip is in satisfactory location. Nonspecific bowel gas pattern. Electronically Signed by Mor Sabillon MD 10/28/2018 07:19 A
[2018-10-28] MEDS ORDERED: HumaLOG INSULIN (NovoLOG) PER UNIT SC SCH (07:30)
[2018-10-28] MEDS ORDERED: ATORVASTATIN 20 MG TAB PO SCH (09:00)
[2018-10-28] MEDS: hydroCHLOROthiazide 25 MG TAB PO SCH (09:32)
[2018-10-28] MEDS: LISINOPRIL 10 MG TAB PO SCH (09:33)
[2018-10-28] MEDS: HYDROXYCHLOROQUINE 200 MG TAB PO SCH ×2 (09:34→20:05)
[2018-10-28] MEDS: CETIRIZINE (ZyrTEC) 10 MG TAB PO SCH (09:34)
[2018-10-28] MEDS: FLUoxetine 20 MG CAP PO SCH (09:34)
[2018-10-28] MEDS: ATORVASTATIN 20 MG TAB GT SCH (09:34)
--- NOTE | 2018-10-28 14:09 | IPNPDOC ---
Subjective Date Seen The patient was seen on 10/28/18. Subjective Chief Complaint/HPI Patient has NG tube in with the yellowish brown secretions suctioned by suctioning system Feels slightly better than before she came in General: Reports: Normal Appetite; Denies: Chills, Night Sweats, Fatigue, Malaise Constitutional: Denies: Chills, Fever, Night Sweats Eyes: Denies: Pain, Vision change ENT: Denies: Head Aches, Ear Pain, Dysphagia Skin: Denies: Rash, Lesions, Breakdown Pulmonary: Denies: Dyspnea, Cough Cardiovascular: Denies: Chest Pain, Palpitations, Orthopnea, Paroxysmal Noc. Dyspnea, Lt Headedness Gastrointestinal: Reports: Nausea, Vomiting, Abdominal Pain Genitourinary: Denies: Dysuria, Frequency, Incontinence, Retention Hematologic: Denies: Bruising, Bleeding Excessively Musculoskeletal: Denies: Neck Pain, Back Pain, Joint Pain, Muscle Pain, Spasms Neurological: Denies: Weakness, Numbness, Change in speech, Confusion Psych: Reports: Mood Normal; Denies: Depression, Memory Issues Objective Physical Examination General Exam: Positive: Alert, No Acute Distress Eye Exam: Positive: PERRLA, Conjunctiva & lids normal, EOMI; Negative: Sclera icteric ENT Exam: Positive: Atraumatic, Mucous membr. moist/pink, Pharynx Normal Neck Exam: Positive: Supple; Negative: JVD, thyromegaly Chest Exam: Positive: Clear to auscultation, Normal air movement Heart Exam: Positive: Rate Normal, Regular Rhythm, Normal S1, Normal S2; Negative: Murmurs, Rubs Telemetry: Positive: No significant arrhythmia Abdomen Exam: Positive: Normal bowel sounds, Soft; Negative: Tenderness, Hepatospenomegaly Female Exam: Positive: Nl Ext Genitalia; Negative: Lesions, Discharge, Odor, Tenderness Extremity Exam: Positive: Normal pulses; Negative: Clubbing, Cyanosis, Edema Skin Exam: Positive: Nl turgor and temperature; Negative: Rash, Breakdown Neuro Exam: Positive: Normal Gait, Normal Speech, Cranial Nerves 3-12 NL, Reflexes 2+ Psych Exam: Positive: Mental status NL, Mood NL, Oriented x 3 Assessment /Plan Problems (1) Intractable vomiting Status: Acute Response to Treatment: Stable Discussed With: Nurse Problem Text: This is a 67 YO F with a history of CAD, diabetes and hypertension who presents with several days of nausea/vomiting/diarrhea and epigastric chest pain found to have patchy infiltrates and edema in her lungs bilaterally and air-fluid levels within the stomach concerning for gastroenteritis Gastroenteritis: patient has an elevated WBC and severe abdominal pain with air- fluid levels and intestinal inflammation. General surgery was called to evaluate the patient and recommended NG Tube placement and observation at this time NG tube in place draining yellowish brown fluid. She has had about 700cc output in the ED NPO and bowel rest for now patient's clinical exam not concerning for bowel perforation or other acute surgical pathology will continue with symptomatic treatment. All electrolytes are WNL Diabetes: SSI with hypoglycemic protocol HTN: Continue home HCTZ and Coreg Hyperlipidemia: Continue lipitor Rheumatoid Arthritis: Continue home Plaquenil Plan/VTE VTE Prophylaxis Ordered?: Yes VS[facility] Vital Signs/I&O Vital Signs Date Time Temp Pulse Resp B/P (MAP) Pulse Ox O2 Delivery O2 Flow Rate FiO2 10/28/18 10:00 96.5 74 16 167/67 (100) 97 10/28/18 02:00 Room Air 10/27/18 19:15 2.0 I&O- Last 24 Hours up to 6 AM 10/28/18 06:00 Intake Total 450 ml Output Total 25 ml Balance 425 ml Laboratory Data 24H LABS Laboratory Tests 2 10/27/18 17:17: Immature Granulocyte % (Auto) 0.4, White Blood Count 13.7H, Red Blood Count 4.91, Hemoglobin 12.8, Hematocrit 40.4, Mean Corpuscular Volume 82.3, Mean Corpuscular Hemoglobin 26.1L, Mean Corpuscular Hemoglobin Concent 31.7L, Red Cell Distribution Width 14.3, Platelet Count 294, Neutrophils (%) (Auto) 85.8H, Lymphocytes (%) (Auto) 6.7L, Monocytes (%) (Auto) 5.2H, Eosinophils (%) (Auto) 1.5, Basophils (%) (Auto) 0.4, Neutrophils # (Auto) 11.8H, Lymphocytes # (Auto) 0.9L, Monocytes # (Auto) 0.7, Eosinophils # (Auto) 0.2, Basophils # (Auto) 0.1, Nucleated Red Blood Cells % (auto) 0.0, Anion Gap 6L, Glomerular Filtration Rate > 60.0, Calcium Level 9.0, Aspartate Amino Transf (AST/SGOT) 24, Alanine Aminotransferase (ALT/SGPT) 55, Alkaline Phosphatase 89, Total Bilirubin 0.4, Direct Bilirubin 0.1, Total Creatine Kinase 180, Creatine Kinase MB 2.0, Creatine Kinase MB Relative Index 1.11, Troponin I < 0.02, LM-Zmg-E-Type Natriuretic Peptide 154H, Total Protein 7.7, Albumin 4.0, Albumin/Globulin Ratio 1.08, Lipase 255, Thyroid Stimulating Hormone (TSH) 1.490 10/27/18 20:57: Total Creatine Kinase 150, Creatine Kinase MB 2.0, Creatine Kinase MB Relative Index 1.33, Troponin I < 0.02 10/28/18 06:25: Bedside Glucose (Misc Panel) 185H 10/28/18 11:36: Bedside Glucose (Misc Panel) 151H CBC/BMP Laboratory Tests 10/27/18 17:17 Red Blood Count 4.91, Mean Corpuscular Volume 82.3, Mean Corpuscular Hemoglobin 26.1 L, Mean Corpuscular Hemoglobin Concent 31.7 L, Red Cell Distribution Width 14.3, Neutrophils (%) (Auto) 85.8 H, Lymphocytes (%) (Auto) 6.7 L, Monocytes (%) (Auto) 5.2 H, Eosinophils (%) (Auto) 1.5, Basophils (%) (Auto) 0.4, Neutrophils # (Auto) 11.8 H, Lymphocytes # (Auto) 0.9 L, Monocytes # (Auto) 0.7, Eosinophils # (Auto) 0.2, Basophils # (Auto) 0.1 Microbiology Microbiology 10/27/18 Blood Culture, Received Pending 10/27/18 Blood Culture, Received Pending 10/28/18 Gastrointestinal Tract Panel (PCR) - Final, Complete EM CHADWICK MD Oct 28, 2018 14:09
[2018-10-28] MEDS ORDERED: ACETAMINOPHEN TAB 650MG DOSE (2X325MG) PO PRN (15:45)
[2018-10-29] MEDS: HumaLOG INSULIN (NovoLOG) PER UNIT SC SCH ×2 (00:02→06:28)
[2018-10-29 02:00] VITALS: BP 164/58
[2018-10-29] MEDS: NS 1,000 ML IV SCH (04:52)
[2018-10-29 06:00] VITALS: BP 159/71
[2018-10-29 07:35] LABS: HEMATOCRIT 33.2 % (36.0-47.0); MEAN CORPUSCULAR HEMOGLOBIN 26.3 pg (27.0-33.0); MEAN CORPUSCULAR HGB CONC 31.3 g/dl (32.0-36.5); MEAN CORPUSCULAR VOLUME 84.1 fl (80.0-96.0); PLATELET COUNT, AUTOMATED 203 10^3/uL (150-450); RED BLOOD COUNT 3.95 10^6/uL (4.00-5.40); WHITE BLOOD COUNT 6.4 10^3/uL (4.0-10.0)
[2018-10-29 07:44] LABS: HEMOGLOBIN 10.4 g/dl (12.0-15.5)
[2018-10-29 08:15] LABS: ALT/SGPT 46 U/L (12-78); BILIRUBIN,TOTAL 0.4 MG/DL (0.2-1.0); BLOOD UREA NITROGEN 7 MG/DL (7-18); CALCIUM LEVEL 7.8 MG/DL (8.8-10.2); CARBON DIOXIDE LEVEL 28 MEQ/L (21-32); CHLORIDE LEVEL 111 MEQ/L (98-107); CREATININE FOR GFR 0.72 MG/DL (0.55-1.30); GLOMERULAR FILTRATION RATE > 60.0 (>45); GLUCOSE, FASTING 162 MG/DL (70-100); LIPASE 116 U/L (73-393); POTASSIUM SERUM 3.4 MEQ/L (3.5-5.1); SODIUM LEVEL 143 MEQ/L (136-145)
[2018-10-29] MEDS ORDERED: DEXTROSE 50% 50 ML SYRINGE IV PRN (08:30)
[2018-10-29] MEDS ORDERED: GLUCOSE 4 GM CHEW TABLET PO PRN (08:30)
[2018-10-29] MEDS ORDERED: GLUCAGON FOR INJ 1 MG VIAL (J1610) SC PRN (08:30)
--- NOTE | 2018-10-29 08:43 | CR ---
DATE OF CONSULTATION: 10/28/2018 HISTORY OF PRESENT ILLNESS: The patient is a 67-year-old female who presents with a two day history of nausea, vomiting, diarrhea and chest pain. She has had some chronic constipation but developed acute onset of watery diarrhea, nausea, vomiting and developed some epigastric pain radiating up into her chest. She states that the pain and pressure in this area has been significant and she noticed some left subcostal pain as well. Once she had an NG tube placed in the emergency room she noticed that her abdominal pain improved substantially and her chest pain as well as her left upper quadrant pain. She does not have anybody known in the family who has had this GI tract abnormality recently. She has not had any fevers or chills. She has not had any episodes of small bowel obstruction in the past. She has had a bladder mesh placed and a hysterectomy, but no bowel surgery. PAST MEDICAL HISTORY: Significant for: History of coronary artery disease status post myocardial infarction. History of diabetes mellitus. History of hypertension. History of rheumatoid arthritis. History of his chronic constipation. History of the arthroscopic knee surgery. Hysterectomy. Spinal fusion. Rotator cuff surgery. Cardiac stent placement. Bladder mesh placement. PHYSICAL EXAMINATION: Reveals a 67-year-old who looks stated age. HEENT is unremarkable. Neck is supple without adenopathy. Lungs are clear to auscultation without crackles, wheeze or rhonchi. Heart is regular. Abdomen is softly distended, tender throughout to deep palpation, but no significant peritoneal signs. No guarding or rebound, and the area in the epigastric area where she had the tenderness and pain is no longer present. She had the NG tube placed last night and I am seeing her this morning after discussions last night with the ER doctor. She was admitted to the hospitalist service and is doing well this morning and states overall she has had some flatus without but without diarrheal bowel movements, but overall is feeling quite well. She has not had a significant NG tube output overnight. IMPRESSION/PLAN: The patient had an ileus and appears much more of a gastric ileus. I anticipate with the enteritis that she had, although it was not remarked on the CT scan, she definitely has some inflammatory changes of the mucosa on her small bowel as well as her colon and I anticipate she probably had some sort of gastroenteritis. It is hard to know if this is viral or bacterial. Given the elevated white count, I agree with the antibiotic choice at this point. However, followup labs if they are back down to normal, would suggest much more of a demargination than a true bacterial infection or possibly a viral etiology. In any case, at this point I will take out her NG tube and if she tolerates the NG tube out over the next couple hours, then I would recommend starting her on a clear liquid diet and if she tolerates that today, advance her to a regular diet tomorrow. From the standpoint of why she had such significant gastric distension she may have some baseline mild gastroparesis which was exacerbated by this infectious abnormality, but in general I anticipate this should improve given that she has not had previous upper GI complaints.
--- NOTE | 2018-10-29 08:43 | IPN ---
DATE: 10/29/2018 The patient seems to be doing well overnight, tolerating clear liquids, has no abdominal pain, no nausea, no vomiting, and overall feels well. She has been afebrile, and her white count this morning is back down to normal. On her physical exam, abdomen is soft, nondistended, nontender. No guarding. No rebound. No peritoneal signs are appreciated. IMPRESSION/PLAN: The patient had enteritis of undetermined etiology. Given the normal white count today, it is most likely that this was viral etiology and it is reasonable to stop the antibiotics. She can followup with her primary care provider, and at that point, decide whether GI referral is needed at that time. She states she will see Dr. Lin after she gets discharged out of her; but I anticipate if she tolerates a diet this morning she can be discharged home from a surgical standpoint.
[2018-10-29] MEDS ORDERED: PREVNAR 13 VACCINE SYRINGE (CPT CODE:90670) IM ONE (09:00)
[2018-10-29] MEDS: PANTOPRAZOLE 40MG TAB (PROTONIX) PO SCH (09:09)
[2018-10-29] MEDS: FLUoxetine 20 MG CAP PO SCH (09:09)
[2018-10-29] MEDS: hydroCHLOROthiazide 25 MG TAB PO SCH (09:10)
[2018-10-29] MEDS: HYDROXYCHLOROQUINE 200 MG TAB PO SCH (09:10)
[2018-10-29] MEDS: CETIRIZINE (ZyrTEC) 10 MG TAB PO SCH (09:10)
[2018-10-29] MEDS: PREGABALIN 75 MG CAP(LYRICA) PO SCH (09:10)
[2018-10-29] MEDS: ATORVASTATIN 20 MG TAB GT SCH (09:10)
[2018-10-29 09:11] VITALS: BP 165/76
[2018-10-29] MEDS: LISINOPRIL 10 MG TAB PO SCH (09:11)
[2018-10-29] MEDS: CARVedilol 12.5 MG TAB PO SCH (09:11)
[2018-10-29 10:00] VITALS: BP 168/74
[2018-10-29] MEDS ORDERED: HumaLOG INSULIN (NovoLOG) PER UNIT SC SCH ×2 (12:00→21:00)
[2018-10-29 14:00] VITALS: BP 131/63
--- NOTE | 2018-10-29 14:34 | DS.PDOC ---
Discharge Summary General Date of Admission Oct 27, 2018 at 23:46 Date of Discharge 10/29/18 Attending Physician: EM CHADWICK MD Discharge Summary PROCEDURES PERFORMED DURING STAY: None. ADMITTING DIAGNOSES: 1. Intractable nausea, vomiting, gastroparesis, gastroenteritis DISCHARGE DIAGNOSES: 1. Intractable nausea, vomiting, gastroparesis, gastroenteritis. COMPLICATIONS/CHIEF COMPLAINT: Chest Pain, Chf. HISTORY OF PRESENT ILLNESS: HISTORY OF PRESENT ILLNESS: Anel Houser is a 67 YO F with history of CAD, hypertension and diabetes who presents with 2 days of nausea, vomiting, diarrhea and chest pain. The patient reports that she has a problem with chronic constipation, but about 2 days ago she started having watery diarrhea and nausea. She began throwing up yesterday and subsequently has felt very lightheaded and weak. She also reports midsternal chest pain that is constant and the same at rest and with activity. The chest pain has been continuous and she describes it as starting in her upper back and radiating forward. She has thrown up about 4-5 times today. She has not been sick recently and denies any fevers, chills, SOB. PAST MEDICAL HISTORY: 1. CAD and OR s/p 1 stent (follows with Dr Polk) 2. Diabetes (on insulin) with peripheral neuropathy 3. Hypertension 4. Rheumatoid arthritis 5. Chronic constipation PAST SURGICAL HISTORY: 1. R knee arthroscopic surgery 2. Hysterectomy 3. Anterior spinal fusion 2000 4. Rotator cuff surgery 5. Cardiac stent placement, 1 vessel 6. Bladder mesh SOCIAL HISTORY: Lives in [place]. 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 Never smoker, Occasional drinker. No other drugs FAMILY HISTORY: noncontributory ALLERGIES: Please see below.. HOSPITAL COURSE: Patient was admitted with the diagnosis of intractable nausea, vomiting. He was placed on nothing by mouth with Zofran and IV fluids. Patient also had a G-tube placed for gastric damage Lisa, patient responded very well to the conservative management NG tube has been DCed since yesterday and she tolerated breakfast and lunch this today and will be discharged home on HOME MEDS . DISCHARGE MEDICATIONS: Please see below. ALLERGIES: Please see below. PHYSICAL EXAMINATION ON DISCHARGE: VITAL SIGNS: Please see below. GENERAL: Normal HEENT:. PERRLA NECK:, Supple, no JVD CARDIOVASCULAR EXAMINATION:S1 S2 regular RESPIRATORY EXAMINATION: Clear to A&P ABDOMINAL EXAMINATION: Benign EXTREMITIES: Negative clubbing, cyanosis, edema SKIN: Within normal limits NEUROLOGICAL EXAMINATION: No focal motor or sensory deficit PSYCHIATRIC EXAMINATION: Within normal limits LABORATORY DATA: Please see below. IMAGING: As above PROGNOSIS: Good ACTIVITY: As tolerated. DIET: Regular DISCHARGE PLAN: Follow up with PCP in one week DISPOSITION: Home. DISCHARGE INSTRUCTIONS: 1. As above. ITEMS TO FOLLOWUP ON ON OUTPATIENT: DISCHARGE CONDITION: Stable. TIME SPENT ON DISCHARGE: Greater than 38 minutes . Vital Signs/I&Os Vital Signs Date Time Temp Pulse Resp B/P (MAP) Pulse Ox O2 Delivery O2 Flow Rate FiO2 10/29/18 14:00 97.2 68 19 131/63 (85) 90 10/28/18 02:00 Room Air 10/27/18 19:15 2.0 I&O- Last 24 Hours up to 6 AM 10/29/18 06:00 Intake Total 1290 ml Output Total 2800 ml Balance -1510 ml Laboratory Data Labs 24H Laboratory Tests 2 10/28/18 16:47: Bedside Glucose (Misc Panel) 140H 10/28/18 23:53: Bedside Glucose (Misc Panel) 156H 10/29/18 05:58: Bedside Glucose (Misc Panel) 170H 10/29/18 07:04: Nucleated Red Blood Cells % (auto) 0.0, Anion Gap 4L, Glomerular Filtration Rate > 60.0, Lactic Acid Level 1.0, Blood Urea Nitrogen 7#, Creatinine 0.72, Sodium Level 143, Potassium Level 3.4L, Chloride Level 111H, Carbon Dioxide Level 28, Calcium Level 7.8L, Aspartate Amino Transf (AST/SGOT) 23, Alanine Aminotransferase (ALT/SGPT) 46, Alkaline Phosphatase 48, Total Bilirubin 0.4, Total Protein 6.0#L, Albumin 3.0#L, Albumin/Globulin Ratio 1.00, Lipase 116 10/29/18 11:33: Bedside Glucose (Misc Panel) 211H CBC/BMP Laboratory Tests 10/29/18 07:04 Red Blood Count 3.95 L, Mean Corpuscular Volume 84.1, Mean Corpuscular Hemoglobin 26.3 L, Mean Corpuscular Hemoglobin Concent 31.3 L, Red Cell Distribution Width 14.6 H, Calcium Level 7.8 L, Aspartate Amino Transf (AST/SGOT) 23, Alanine Aminotransferase (ALT/SGPT) 46, Alkaline Phosphatase 48, Total Bilirubin 0.4, Total Protein 6.0 #L, Albumin 3.0 #L FSBS Laboratory Tests Test 10/28/18 16:47 10/28/18 23:53 10/29/18 05:58 10/29/18 11:33 Range/Units Bedside Glucose (Misc Panel) 140 156 170 211 80-115 MG/DL Microbiology Microbiology 10/27/18 Blood Culture - Preliminary, Resulted No growth after 24 hours . All specim... 10/27/18 Blood Culture - Preliminary, Resulted No growth after 24 hours . All specim... 10/28/18 Gastrointestinal Tract Panel (PCR) - Final, Complete Discharge Medications Scheduled Atorvastatin Calcium (Atorvastatin Calcium) 40 Mg Tablet, 40 MG PO DAILY, (Reported) Carvedilol (Carvedilol) 12.5 Mg Tablet, 12.5 MG PO BID, (Reported) Cetirizine HCl (Cetirizine HCl) 10 Mg Tablet, 10 MG PO DAILY, (Reported) Docusate Sodium (Docusate Sodium) 100 Mg Capsule, 200 MG PO DAILY, (Reported) Esomeprazole Magnesium (Nexium) 40 Mg Capsule.dr, 40 MG PO BID, (Reported) Fluoxetine Hcl (Fluoxetine HCl) 20 Mg Capsule, 20 MG PO DAILY, (Reported) Hydrochlorothiazide (Hydrochlorothiazide) 25 Mg Tablet, 25 MG PO DAILY, (Reported) Hydroxychloroquine Sulfate (Hydroxychloroquine Sulfate) 200 Mg Tablet, 200 MG PO BID, (Reported) Insulin Glargine,Hum.rec.anlog (Basaglar Kwikpen U-100) 100 Unit/1 Ml Insuln.pen, 20 UNIT SC QHS, (Reported) Levomefolate/B6/B12/Algal Oil (Metanx Capsule) 1 Each Capsule, 1 CAP PO DAILY, (Reported) Lisinopril (Lisinopril) 30 Mg Tablet, 30 MG PO DAILY, (Reported) Metformin HCl (Metformin HCl) 1,000 Mg Tablet, 1,000 MG PO BID, (Reported) Pregabalin (Lyrica) 150 Mg Capsule, 150 MG PO BID, (Reported) Sitagliptin Phosphate (Januvia) 100 Mg Tablet, 100 MG PO DAILY, (Reported) Vitamin D (Vitamin D3) 1,000 Unit Tablet, 1,000 UNITS PO DAILY, (Reported) Scheduled PRN Clobetasol Propionate/Emoll (Clobetasol Emollient 0.05% Crm) 15 Gm Cream..g., 1 DOSE TOP BID PRN for DRY SKIN, (Reported) Lactulose (Lactulose) 10 Gm/15 Ml Solution, 15 ML PO DAILY PRN for CONSTIPATION, (Reported) Nitroglycerin (Nitrostat) 0.4 Mg Tab.subl, 0.4 MG SL NITRO PRN for CHEST PAIN, (Reported) Allergies Coded Allergies: Penicillins (Verified Allergy, Intermediate, hives, 10/27/18) meperidine (Verified Allergy, Unknown, 10/27/18) morphine (Verified Adverse Reaction, Intermediate, "sick", 10/27/18) EM CHADWICK MD Oct 29, 2018 14:34
[2018-10-29] MEDS ORDERED: LevoFLOXacin IV 750 MG in APPROPRIATE DILUENT 1 EA IV SCH (21:00)
== END 2018-10-29 14:32 | disposition home or self-care (01) | DRG 74 ==
LOC: M ED 16:50 → M ED INP 23:46 → M MSPAV 10-28 02:15
PROVIDERS: ADMIT Student in an Organized Health Care Education/Training Program; ATTEND Internal Medicine
DX: E11.43 Type 2 diabetes mellitus with diabetic autonomic (poly)neuropathy (principal); K52.9 Noninfective gastroenteritis and colitis, unspecified; I25.10 Atherosclerotic heart disease of native coronary artery without angina pectoris; I10 Essential (primary) hypertension; K59.00 Constipation, unspecified; E11.51 Type 2 diabetes mellitus with diabetic peripheral angiopathy without gangrene; Z95.1 Presence of aortocoronary bypass graft; Z79.899 Other long term (current) drug therapy; Z88.0 Allergy status to penicillin; Z88.5 Allergy status to narcotic agent; Z88.8 Allergy status to other drugs, medicaments and biological substances; I25.2 Old myocardial infarction; M06.9 Rheumatoid arthritis, unspecified; E78.5 Hyperlipidemia, unspecified; D72.829 Elevated white blood cell count, unspecified

== ENCOUNTER 2019-01-14 14:42 | Outpatient (RCR) | payer MEDICARE ==
[~2019-01-14 14:42] MED LIST changes: +ALL10TAB28 PO; +ATOR40TA75 PO; +BASA100I SC; +CARV12.5 PO; +CARVEDILOL PO; +CLOB0.0548 TOP; +DOCU100C16 PO; +HYDR200T3 PO; +HYDR25TAB PO; +LACT10SO29 PO; +LISI-672 PO; +METACAP3 PO; +NEXI40CA PO; +NITR4TASL SL; +[UNRECOGNIZED DRUG - OTHER] SQ
[2019-01-14] MEDS ORDERED: PLAV1TAB2 PO (15:19)
[2019-01-14] MEDS ORDERED: ZANTTAB PO (15:19)
[2019-01-14] MEDS ORDERED: XANA0.5T PO (15:19)
[2019-01-14] MEDS ORDERED: veramyst (15:19)
--- NOTE | 2019-01-14 16:22 | CARECAPL ---
Assessment Account #s: Initial Assessment General Diagnoses: PTCA Allergies: Coded Allergies: Penicillins (Verified Allergy, Intermediate, hives, 10/27/18) meperidine (Verified Allergy, Unknown, 10/27/18) morphine (Verified Adverse Reaction, Intermediate, "sick", 10/27/18) Date Entered Program: Jan 14, 2019 Risk strat for cardiac event: Low Exercise Date: Jan 14, 2019 Assessment: Initial Assessment Exercise Prescription Plan TO EDUCATE AND BUILD ENDURANCE THROUGH MONITORED EXERCISE Modalities initiated: Treadmill (WILL ADD), Nustep (WILL ADD), Arm Aerometer (WILL ADD), Dumbells (WILL ADD), Recumbent Bike (WILL ADD) Frequency: 3 Duration (Minutes) 30-60 minutes total exercise a day. 12-15 work intervals in minutes. 5 MIN PRN rest intervals in minutes. Functional Capacity Goal Sustained Metabolic Equivalent of a task (MET) goal of 2.5-3.5 for 15-20 minutes. Intensity: 3-Moderate Progression (METS) Increase by: 0.5 METS every: 5 sessions TOLERATED Angina with ex: No Target Heart Rate REST + 35-40 BASED ON BETA SAHIL Resistance Training: Yes Weight (pounds): 1 Reps: 8-12 Hypertension: Yes Hypertension controlled with: Medication Resting 144/68 Medications Scheduled Atorvastatin Calcium (Atorvastatin Calcium), 40 MG PO DAILY, (Reported) Carvedilol (Carvedilol), 20 MG PO BID, (Reported) Cetirizine HCl (Cetirizine HCl), 10 MG PO DAILY, (Reported) Clopidogrel Bisulfate (Plavix), 75 MG PO DAILY, (Reported) Esomeprazole Magnesium (Nexium), 40 MG PO BID, (Reported) Fluoxetine Hcl (Fluoxetine HCl), 20 MG PO DAILY, (Reported) Hydrochlorothiazide (Hydrochlorothiazide), 25 MG PO DAILY, (Reported) Hydroxychloroquine Sulfate (Hydroxychloroquine Sulfate), 200 MG PO BID, (Reported) Insulin Glargine,Hum.rec.anlog (Basaglar Kwikpen U-100), 20 UNIT SC QHS, (Reported) Levomefolate/B6/B12/Algal Oil (Metanx Capsule), 1 CAP PO DAILY, (Reported) Lisinopril (Lisinopril), 30 MG PO DAILY, (Reported) Metformin HCl (Metformin HCl), 1,000 MG PO BID, (Reported) Pregabalin (Lyrica), 150 MG PO BID, (Reported) Ranitidine Hcl (Zantac), 150 MG PO BID, (Reported) Sitagliptin Phosphate (Januvia), 100 MG PO DAILY, (Reported) Vitamin D (Vitamin D3), 1,000 UNITS PO DAILY, (Reported) Scheduled PRN Alprazolam (Xanax), 0.5 MG PO BIDP PRN for anxiety, (Reported) Clobetasol Propionate/Emoll (Clobetasol Emollient 0.05% Crm), 1 DOSE TOP BID PRN for DRY SKIN, (Reported) Nitroglycerin (Nitrostat), 0.4 MG SL NITRO PRN for CHEST PAIN, (Reported) Miscellaneous Medications [veramyst], 27.5 MCG NA, (Reported) Discontinued Medications Docusate Sodium (Docusate Sodium), 200 MG PO DAILY, (Reported) Discontinued Reason: Pt states not taking Lactulose (Lactulose), 15 ML PO DAILY PRN for CONSTIPATION, (Reported) Discontinued Reason: Pt states not taking Med Change: No Intervention Resistance Training: Yes Education: Self pulse, Ex safety, S/S to report, Low NA diet, BP medication, RPE Scale, Equipment orientation, warm up/cool down, Understand BP, Physical Active Target Goals Individual exercise Rx (1) BP 140/90 or 130/80 if DM or CKD (1) Aerobic active 30+min 5 days per week (1) Nutrition Date: Jan 14, 2019 Assessment: Initial Assessment Lipid- med/supplement ATORVASTATIN Med Change: No Diabetes Diabetes: Yes Fasting Blood Sugar: 143 Diabetes medication GLARGINE /METFORMIN/JANUVIA Monitor Blood Sugar at home: Yes Medication Change: No Random Blood Sugar: 143 Weight Management Weight (lbs): 159.6 Height (inches): 60 Waist Circumference (Inches): 40 BMI: 31.2 Weight goal: 125 Special Diet: regular Vitamin/Supplements: Vitamin D Alcohol: none Score: 51 Current Weight (pounds): 159.6 Weight Goal 125 Intervention Corporate Security Officer Consult: No Nurse/patient discussion: Yes Dietary Goals TO MAKE HEART HEALTHY CHOICES AND PORTION CONTROL Diet Class: Yes (WILL SEE MANAGER BUDGET DURING PROGRAM) Referral to Diabetes education: No Referral to lipid clinic: No Referral to weight mangement p: No Education S&S hypo/hyper glycemia, Relate Diabetes in CAD, Eating Healthy Target goal LDL-C<100 if triglycerides are >200 Non-HDL-C should be <130 (1) LDL-C<70 for high risk patients (4) HbA1c<7% (1) BMI<25 Waist cir<40in M/<35in F (1) Education Date: Jan 14, 2019 Assessment: Initial Assessment Learning Barriers: ready Knowledge Test Score: 8 Family Support: Yes Tobacco use: No Quit: never smoked Tobacco Use Smokeless tobacco: No Intervention Referral to smoking cessation: No Individual education and couns: No Tobacco Adjunct: No Education class schedule given: No Attended education classes: No Education: CAD, Risk factors, med compliance, cardiac A&P, Angina S/S, Sex uality Target Goals Complete cessation of tobacco use (1). Psychosocial Date: Jan 14, 2019 Assessment: Initial Assessment Psych Test (Initial/Discharge) Tool Used: CESD Score: 4 Intervention Physician Consult: No Physician Referral: No Med Change: No Stress Management Class: No Uses Stress Management Skills: Yes Education Education: Coping Techniques, S/S depression, Relaxation Techniques Target Goal Assess presence or absence of depression using a valid screening tool (1). Maximize coping skills (2). Positive support system (2). Patient/Program Goal Preventative Medication: Yes Aspirin, Yes Clopidogrel, Yes Beta blockade, Yes Statin/OTR lipid Lowering Fall Risk Assess: Yes (NOT A FALL RISK) Provider Assessment Session Number: 1 Provider Assessment: Proceed with rehab Malachi Salter RN Jan 14, 2019 16:22
== END 2019-01-18 ==
LOC: M CR 14:42
PROVIDERS: ATTEND Internal Medicine Cardiovascular Disease
DX: Z98.61 Coronary angioplasty status (principal)

== ENCOUNTER 2019-02-16 02:52 | Emergency (ER) | payer MEDICARE ==
[~2019-02-16] VITALS: Ht 152.4 cm; Wt 71.4 kg
[~2019-02-16 02:52] MED LIST changes: +PLAV1TAB2 PO; +ZANT150T40 PO; +veramyst
[2019-02-16 03:41] LABS: BASO # 0.1 10^3/uL (0.0-0.2); BASO % 0.4 % (0.0-1.0); EOS # 0.2 10^3/uL (0.0-0.50); EOS % 1.8 % (0.0-3.0); HEMATOCRIT 36.8 % (36.0-47.0); HEMOGLOBIN 11.8 g/dl (12.0-15.5); LYMPH # 0.8 10^3/uL (1.5-4.5); LYMPH % 6.8 % (24.0-44.0); MEAN CORPUSCULAR HEMOGLOBIN 26.9 pg (27.0-33.0); MEAN CORPUSCULAR HGB CONC 32.1 g/dl (32.0-36.5); MEAN CORPUSCULAR VOLUME 83.8 fl (80.0-96.0); MONO # 0.7 10^3/uL (0.0-0.8); MONO % 6.2 % (0.0-5.0); NEUTROPHILS % 84.6 % (36.0-66.0); PLATELET COUNT, AUTOMATED 282 10^3/uL (150-450); RED BLOOD COUNT 4.39 10^6/uL (4.00-5.40); WHITE BLOOD COUNT 11.8 10^3/uL (4.0-10.0)
[2019-02-16] MEDS ORDERED: NS 1,000 ML IV ONE (04:00)
[2019-02-16 04:07] LABS: ALBUMIN 3.5 GM/DL (3.2-5.2); ALT/SGPT 45 U/L (12-78); BILIRUBIN,DIRECT 0.1 MG/DL (0.0-0.2); BILIRUBIN,TOTAL 0.3 MG/DL (0.2-1.0); BLOOD UREA NITROGEN 16 MG/DL (7-18); CALCIUM LEVEL 8.4 MG/DL (8.8-10.2); CARBON DIOXIDE LEVEL 25 MEQ/L (21-32); CHLORIDE LEVEL 108 MEQ/L (98-107); CREATININE FOR GFR 0.96 MG/DL (0.55-1.30); GLOMERULAR FILTRATION RATE > 60.0 (>45); GLUCOSE, FASTING 171 MG/DL (70-100); LIPASE 246 U/L (73-393); POTASSIUM SERUM 4.4 MEQ/L (3.5-5.1); SODIUM LEVEL 140 MEQ/L (136-145); TOTAL PROTEIN 6.7 GM/DL (6.4-8.2)
[2019-02-16 05:07] VITALS: BP 124/67
[2019-02-16] MEDS ORDERED: AZITHROMYCIN 250 MG TAB PO ONE (05:45)
== END 2019-02-16 06:25 | disposition home or self-care (01) ==
LOC: M ED 02:52
DX: K52.9 Noninfective gastroenteritis and colitis, unspecified (principal); E11.9 Type 2 diabetes mellitus without complications; I10 Essential (primary) hypertension; K21.9 Gastro-esophageal reflux disease without esophagitis; F41.9 Anxiety disorder, unspecified; E78.5 Hyperlipidemia, unspecified; Z79.899 Other long term (current) drug therapy; Z79.4 Long term (current) use of insulin; Z79.02 Long term (current) use of antithrombotics/antiplatelets; Z88.0 Allergy status to penicillin; Z88.5 Allergy status to narcotic agent; Z88.8 Allergy status to other drugs, medicaments and biological substances

== ENCOUNTER → 2019-02-18 | Outpatient (RCR) | payer MEDICARE | LOC: M CR 01-19 15:24 | PROVIDERS: ATTEND Internal Medicine Cardiovascular Disease | DX: Z98.61 Coronary angioplasty status (principal) ==

== ENCOUNTER 2019-03-09 14:50 | Outpatient (RCR) | payer MEDICARE ==
--- NOTE | 2019-02-23 16:31 | CARECAPL ---
Assessment Account #s: Re-Assessment II General Diagnoses: PTCA Date of event: December 05, 2018 Physician: Ofelia Polk MD Allergies: Coded Allergies: Penicillins (Verified Allergy, Intermediate, hives, 10/27/18) meperidine (Verified Allergy, Unknown, 10/27/18) morphine (Verified Adverse Reaction, Intermediate, "sick", 10/27/18) Date Entered Program: Jan 14, 2019 Risk strat for cardiac event: Low Exercise Assessment: Re-Assessment II Exercise Prescription Plan TO EDUCATE AND BUILD ENDURANCE THROUGH MONITORED EXERCISE Modalities initiated: Treadmill (METS=2.53/RPE=3), Nustep (METS=5.0/RPE=3.5), Arm Aerometer (METS=2.4/RPE=4), Dumbells (2#/RPE=3) Frequency: 3 Duration (Minutes) 30-60 minutes total exercise a day. 12-15 work intervals in minutes. 5 MIN PRN rest intervals in minutes. Functional Capacity Goal Sustained Metabolic Equivalent of a task (MET) goal of 3.5-4.25 for 15-20 minutes. Intensity: 3-Moderate Progression (METS) Increase by: 0.5 METS every: 5 sessions TOLERATED Angina with ex: No Target Heart Rate +35-40 BASED ON BETA SAHIL THERAPY Resistance Training: Yes Weight (pounds): 2 Reps: 12-15 Hypertension: Yes Hypertension controlled with: Medication Resting 138/86 Peak Exercise BP 150/80 Medications Scheduled Atorvastatin Calcium (Atorvastatin Calcium), 40 MG PO DAILY, (Reported) Carvedilol (Carvedilol), 20 MG PO BID, (Reported) Cetirizine HCl (Cetirizine HCl), 10 MG PO DAILY, (Reported) Clopidogrel Bisulfate (Plavix), 75 MG PO DAILY, (Reported) Esomeprazole Magnesium (Nexium), 40 MG PO BID, (Reported) Fluoxetine Hcl (Fluoxetine HCl), 20 MG PO DAILY, (Reported) Hydrochlorothiazide (Hydrochlorothiazide), 25 MG PO DAILY, (Reported) Hydroxychloroquine Sulfate (Hydroxychloroquine Sulfate), 200 MG PO BID, (Reported) Insulin Glargine,Hum.rec.anlog (Basaglar Kwikpen U-100), 20 UNIT SC QHS, (Reported) Levomefolate/B6/B12/Algal Oil (Metanx Capsule), 1 CAP PO DAILY, (Reported) Lisinopril (Lisinopril), 30 MG PO DAILY, (Reported) Metformin HCl (Metformin HCl), 1,000 MG PO BID, (Reported) Pregabalin (Lyrica), 150 MG PO BID, (Reported) Ranitidine Hcl (Zantac), 150 MG PO BID, (Reported) Sitagliptin Phosphate (Januvia), 100 MG PO DAILY, (Reported) Vitamin D (Vitamin D3), 1,000 UNITS PO DAILY, (Reported) Scheduled PRN Alprazolam (Xanax), 0.5 MG PO BIDP PRN for anxiety, (Reported) Clobetasol Propionate/Emoll (Clobetasol Emollient 0.05% Crm), 1 DOSE TOP BID PRN for DRY SKIN, (Reported) Nitroglycerin (Nitrostat), 0.4 MG SL NITRO PRN for CHEST PAIN, (Reported) Miscellaneous Medications [veramyst], 27.5 MCG NA, (Reported) Current BP 118/82 Med Change: No Intervention Resistance Training: Yes Education: Self pulse (INSTRUCTED ON TAKING OWN PULSE), Ex safety (EDUCATED ON EXERCISING SAFELY, WARM UP/COOL DOWN, REPORT CP/SOB), S/S to report (EDUCATED TO REPORT CHEST PAIN/SOB), Low NA diet (INSTRUCTED ON LOW NA DIET, WILL MEET WITH PULMONOLOGY PHYSICIAN WHILE IN PROGRAM), BP medication (REVIEWED MEDICATIONS), RPE Scale (EDUCATED ON SCALE OF 1-5 FOR EFFORT AFTER EACH PIECE OF EQUIPMENT), Equipment orientation (ORIENTED TO EACH PIECE OF EQUIPMENT), warm up/cool down (INSTRUCTED ON IMPORTANCE OF WARM UP PRIOR TO EXERCISE AND COOL DOWN AFTER EXERCISE), Understand BP, Physical Active (EDUCATED ON IMPORTANCE OF EXERCISE TO LOWER CARDIOVASCULAR RISKS) Target Goals Individual exercise Rx (1) BP 140/90 or 130/80 if DM or CKD (1) Aerobic active 30+min 5 days per week (1) Nutrition Date: Feb 23, 2019 Assessment: Re-Assessment II Lipid- med/supplement ATORVASTATIN 40 MG DAILY Med Change: No Diabetes Diabetes: Yes Diabetes medication HUMALOG INSULIN, METFORMIN,JANUVIA Monitor Blood Sugar at home: Yes Medication Change: No Weight Management Weight (lbs): 159.6 Special Diet: low salt, regular Vitamin/Supplements: Vitamin D Alcohol: none Current Weight (pounds): 159.6 Weight Goal 125 Intervention Program[employer] Consult: No Nurse/patient discussion: Yes Dietary Goals TO REDUCE PORTION SIZE Diet Class: Yes (WILL SEE PULMONOLOGY PHYSICIAN WHILE IN PROGRAM) Referral to Diabetes education: No Referral to lipid clinic: No Referral to weight mangement p: No Education S&S hypo/hyper glycemia, Relate Diabetes in CAD, Eating Healthy Target goal LDL-C<100 if triglycerides are >200 Non-HDL-C should be <130 (1) LDL-C<70 for high risk patients (4) HbA1c<7% (1) BMI<25 Waist cir<40in M/<35in F (1) Education Date: Feb 23, 2019 Assessment: Re-Assessment II Learning Barriers: ready Family Support: Yes Tobacco use: No Tobacco Use Smokeless tobacco: No Intervention Referral to smoking cessation: No Individual education and couns: No Tobacco Adjunct: No Education class schedule given: No Attended education classes: No Education: CAD, Risk factors, med compliance, cardiac A&P, Angina S/S, Sexuality Target Goals Complete cessation of tobacco use (1). Psychosocial Date: Feb 23, 2019 Assessment: Re-Assessment II Intervention Physician Consult: No Physician Referral: No Med Change: No Stress Management Class: No Uses Stress Management Skills: Yes Education Education: Coping Techniques, S/S depression, Relaxation Techniques Target Goal Assess presence or absence of depression using a valid screening tool (1). Maximize coping skills (2). Positive support system (2). Patient/Program Goal Preventative Medication: Yes Aspirin, Yes Clopidogrel, Yes Beta blockade, Yes Statin/OTR lipid Lowering Fall Risk Assess: Yes (NOT FALL RISK) Provider Assessment Session Number: 7 Provider Assessment: Proceed with rehab Malachi Salter RN Feb 23, 2019 16:31
== END 2019-03-21 ==
LOC: M CR 14:50
PROVIDERS: ATTEND Internal Medicine Cardiovascular Disease
DX: Z98.61 Coronary angioplasty status (principal)

== ENCOUNTER 2019-03-19 14:45 | Outpatient (RCR) | payer MEDICARE, MEDICAID | END 2019-03-21 | LOC: M PT 14:45 | PROVIDERS: ATTEND Physician Assistant | DX: S76.311A Strain of muscle, fascia and tendon of the posterior muscle group at thigh level, right thigh, initial encounter (principal) ==

== ENCOUNTER 2019-04-27 17:20 | Emergency (ER) | payer MEDICARE, MEDICAID ==
[~2019-04-27] VITALS: Ht 152.4 cm; Wt 77.9 kg
[~2019-04-27 17:20] MED LIST changes: -ALL10TAB28 PO; +ALL10TAB29 PO; +CHOL100029 PO
[2019-04-27] MEDS ORDERED: ACETAMINOPHEN 325 MG TAB PO ONE (19:00)
[2019-04-27 19:09] VITALS: BP 169/71
--- NOTE | 2019-04-27 19:23 | REP ---
Left wrist series: Four views. History: Trauma. Findings: Four views of the left wrist demonstrate old post-traumatic deformity of the distal radius. There is diffuse osteopenia. Vascular calcification is noted. No acute fractures seen. Impression: Old post-traumatic deformity distal radius. Diffuse osteopenia. Vascular calcification. No acute fracture seen. Electronically Signed by Vu Ramirez MD 04/27/2019 07:37 P
--- NOTE | 2019-04-27 19:26 | REP ---
Right hand series: Four views. History: Trauma of the thumb. Findings: Four views of the right hand injury osteoarthritis at the DIP joints of all four fingers, the IP joint of the thumb, the first LONG-TERM and MCP joints. There is diffuse osteopenia. No fractures seen. Impression: Osteoarthritic changes and vascular calcification. Diffuse osteopenia. No fracture seen. Electronically Signed by Vu Ramirez MD 04/27/2019 07:38 P
== END 2019-04-27 19:10 | disposition home or self-care (01) ==
LOC: M ED 17:20
DX: S63.502A Unspecified sprain of left wrist, initial encounter (principal); S62.001A Unspecified fracture of navicular [scaphoid] bone of right wrist, initial encounter for closed fracture; W01.0XXA Fall on same level from slipping, tripping and stumbling without subsequent striking against object, initial encounter; Y92.480 Sidewalk as the place of occurrence of the external cause; I25.10 Atherosclerotic heart disease of native coronary artery without angina pectoris; I50.9 Heart failure, unspecified; I25.2 Old myocardial infarction; I11.0 Hypertensive heart disease with heart failure; Z88.0 Allergy status to penicillin; Z88.5 Allergy status to narcotic agent; Z88.8 Allergy status to other drugs, medicaments and biological substances; Z79.899 Other long term (current) drug therapy

== ENCOUNTER → 2019-08-13 | Outpatient (CLI) | payer MEDICARE ==
[~2019-08-13] MED LIST changes: +FLUO20CA20 PO
== END ==
LOC: M LAB 15:05
PROVIDERS: ATTEND Internal Medicine Cardiovascular Disease
DX: I25.10 Atherosclerotic heart disease of native coronary artery without angina pectoris (principal)

== ENCOUNTER → 2019-12-18 | Outpatient (CLI) | payer MEDICARE, OTHER ==
[~2019-12-18] MED LIST changes: -LISI-672 PO; +LISI30TA4 PO
== END ==
LOC: M LAB 10:57
PROVIDERS: ATTEND Internal Medicine Gastroenterology
DX: R10.12 Left upper quadrant pain (principal); R10.32 Left lower quadrant pain

== ENCOUNTER 2019-12-30 18:28 | Observation (INO) | payer MEDICARE, OTHER ==
[~2019-12-30] VITALS: Ht 152.4 cm; Wt 70.8 kg
[~2019-12-30 18:28] MED LIST changes: -LACT10SO29 PO; +LACT20EL PO
[2019-12-30] MEDS ORDERED: ONDANSETRON 4MG/2ML VIAL IV ONE (19:00)
[2019-12-30] MEDS ORDERED: NS 1,000 ML IV ONE (19:00)
--- NOTE | 2019-12-30 19:16 | REPVR ---
PROCEDURE INFORMATION: Exam: CT Head Without Contrast Exam date and time: 12/30/2019 7:03 PM Age: 69 years old Clinical indication: Syncope and collapse TECHNIQUE: Imaging protocol: Computed tomography of the head without contrast. Radiation optimization: All CT scans at this facility use at least one of these dose optimization techniques: automated exposure control; mA and/or kV adjustment per patient size (includes targeted exams where dose is matched to clinical indication); or iterative reconstruction. COMPARISON: No relevant prior studies available. FINDINGS: Brain: Mild decreased attenuation of the supratentorial white matter is likely secondary to chronic microvascular ischemia. No acute intracranial hemorrhage. Ventricles: Ventricular and subarachnoid spaces are age appropriate. Bones/joints: Chronic right lamina papyracea fracture. Sinuses: Visualized sinuses are unremarkable. No fluid levels. Mastoid air cells: Visualized mastoid air cells are well aerated. Vasculature: Intracranial vascular calcification. Soft tissues: Unremarkable. IMPRESSION: No acute intracranial abnormality. Electronically signed by: Grant Hamilton On 12/30/2019 19:15:44 PM
[2019-12-30 19:34] LABS: BASO % 0.6 % (0.0-1.0); EOS # 0.1 10^3/uL (0.0-0.5); EOS % 2.1 % (0.0-3.0); HEMATOCRIT 33.4 % (36.0-47.0); HEMOGLOBIN 10.4 g/dl (12.0-15.5); LYMPH # 1.1 10^3/uL (1.5-5.0); LYMPH % 16.1 % (24.0-44.0); MEAN CORPUSCULAR HGB CONC 31.1 g/dl (32.0-36.5); MEAN CORPUSCULAR VOLUME 80.3 fl (80.0-96.0); MONO # 0.4 10^3/uL (0.0-0.8); MONO % 5.9 % (0.0-5.0); NEUTROPHILS # 4.9 10^3/uL (1.5-8.5); PLATELET COUNT, AUTOMATED 268 10^3/uL (150-450); RED BLOOD COUNT 4.16 10^6/uL (4.00-5.40); WHITE BLOOD COUNT 6.6 10^3/uL (4.0-10.0)
--- NOTE | 2019-12-30 19:35 | REP ---
Single view chest: 12/30/2019. Indication: Syncope. Comparison: 10/27/2018. Findings: Poor inspiratory result is noted. There is no pleural effusion or pneumothorax. Cardiac silhouette is unremarkable. Lungs are clear. Impression: Clear lungs. Electronically Signed by Casey Sanchez DO 12/30/2019 07:27 P
[2019-12-30 20:05] LABS: CREATININE FOR GFR 1.28 MG/DL (0.55-1.30); ETHYL ALCOHOL (ETHANOL) 0.005 % (0.000-0.010); GLOMERULAR FILTRATION RATE 44.3 (>45); MAGNESIUM LEVEL 1.8 MG/DL (1.8-2.4); POTASSIUM SERUM 3.9 MEQ/L (3.5-5.1); THYROID STIMULATING HORMONE 1.79 uIU/ML (0.358-3.740)
[2019-12-30] MEDS ORDERED: ACETAMINOPHEN 325 MG TAB PO ONE (20:45)
[2019-12-30] MEDS ORDERED: ATORVASTATIN 20 MG TAB PO SCH (21:00)
[2019-12-30] MEDS ORDERED: LEVEMIR (INSULIN DETEMIR) 1 UNITS/0.01ML SC SCH (21:00)
[2019-12-30] MEDS ORDERED: ALPRAZolam 0.5 MG TAB PO SCH (21:00)
[2019-12-30] MEDS ORDERED: HumaLOG INSULIN (NovoLOG) PER UNIT SC SCH (21:00)
[2019-12-30] MEDS ORDERED: LISI40TA PO (21:40)
[2019-12-30] MEDS ORDERED: VITAD1000T PO (21:40)
[2019-12-30] MEDS ORDERED: DEXTROSE 50% 50 ML SYRINGE IV PRN (21:45)
[2019-12-30] MEDS ORDERED: GLUCAGON INJ 1MG VIAL SC PRN (21:45)
[2019-12-30] MEDS ORDERED: GLUCOSE 4GM CHEW TABLET PO PRN (21:45)
--- NOTE | 2019-12-30 22:20 | HPEPDOC ---
[facility] Medical History & Physical Date of Admission Dec 30, 2019 Date of Service: Dec 30, 2019 Attending Physician: ROSALIE GILLETTE MD History and Physical CHIEF COMPLAINT: Syncope HISTORY OF PRESENT ILLNESS: 69-year-old female with past medical history of coronary artery disease status post stent placement 2, hypertension, diabetes mellitus and hyperlipidemia presents from home with syncopal episode. Patient was sitting on the table when she syncopized for a total of 2 minutes. Her friend witnessed the episode, she denies having any prodromal symptoms, has been feeling dizzy since regaining consciousness, orthostatics negative in the ED. She reports decreased oral intake today, has not had any water today, the right one cup of tea, no meals. She denies any chest pain, nausea, vomiting, diarrhea or abdominal pain. She does have constipation, took MiraLAX earlier today, no bowel movements yet. 10 point review of systems negative so for above PAST MEDICAL HISTORY: 1. Coronary artery disease. 2. Hypertension. 3. Hyperlipidemia. 4. Diabetes mellitus PAST SURGICAL HISTORY: 1. Multiple orthopedic surgeries. 2. Coronary stent placement 2. SOCIAL HISTORY: Denies smoking. Social alcohol use. Denies drug use FAMILY HISTORY: Positive for heart disease ALLERGIES: Please see below. HOME MEDICATIONS: Please see below. PHYSICAL EXAMINATION: VITAL SIGNS: Please see below. GENERAL: No distress HEENT: Normocephalic, atraumatic, moist mucous membranes NECK: Supple CARDIOVASCULAR EXAMINATION: S1, S2, no murmurs RESPIRATORY EXAMINATION: Clear to auscultation, no wheezing ABDOMINAL EXAMINATION: Soft, nontender, nondistended, positive bowel sounds EXTREMITIES: Range of motion intact SKIN: No rash NEUROLOGICAL EXAMINATION: Alert and oriented 3, no focal deficits PSYCHIATRIC EXAMINATION: Calm and cooperative LABORATORY DATA: See below. IMAGING: Chest x-ray and head CT negative for acute pathology MICROBIOLOGY: Please see below. ASSESSMENT: 69-year-old female with multiple medical comorbidities. He is being admitted for syncope. PLAN: 1. Syncope. Orthostatics negative, EKG without acute ST-T wave changes, decreased oral intake, gentle IV hydration, TTE pending. 2. Coronary artery disease. Status post an placement 2, continue optimal medical management with Plavix, statin and beta nessa. 3. Hypertension. Continue Coreg and lisinopril, holding hydrochlorothiazide. 4. Diabetes mellitus. Continue Levemir with sliding scale insulin coverage with meals and at bedtime. 5. Hyperlipidemia. Continue statin DVT prophylaxis: Lovenox. GI prophylaxis: Not needed Vital Signs Vital Signs Date Time Temp Pulse Resp B/P (MAP) Pulse Ox O2 Delivery O2 Flow Rate FiO2 12/30/19 20:47 68 120/56 (77) 12/30/19 20:45 98.2 18 90 12/30/19 19:38 Room Air Laboratory Data Labs 24H Laboratory Tests 2 12/30/19 19:24: POC Troponin I (Misc) 0.00 12/30/19 19:26: Immature Granulocyte % (Auto) 0.3, Neutrophils (%) (Auto) 75.0H, Lymphocytes (%) (Auto) 16.1L, Monocytes (%) (Auto) 5.9H, Eosinophils (%) (Auto) 2.1, Basophils (%) (Auto) 0.6, Neutrophils # (Auto) 4.9, Lymphocytes # (Auto) 1.1L, Monocytes # (Auto) 0.4, Eosinophils # (Auto) 0.1, Basophils # (Auto) 0.0, Nucleated Red Blood Cells % (auto) 0.0, Anion Gap 12, Glomerular Filtration Rate 44.3L, Calcium Level 8.0L, Magnesium Level 1.8, Total Creatine Kinase 114, Thyroid Stimulating Hormone (TSH) 1.790, Ethyl Alcohol Level 0.005 CBC/BMP Laboratory Tests 12/30/19 19:26 Home Medications Scheduled Alprazolam (Xanax) 0.5 Mg Tablet, 0.5 MG PO QHS Atorvastatin Calcium (Atorvastatin Calcium) 40 Mg Tablet, 40 MG PO QHS Carvedilol (Carvedilol) 12.5 Mg Tablet, 12.5 MG PO BID Cetirizine HCl (Cetirizine HCl) 10 Mg Tablet, 10 MG PO DAILY Cholecalciferol (Vitamin D3) (Vitamin D3) 1,000 Unit Tablet, 1,000 UNITS PO DAILY Clopidogrel Bisulfate (Plavix) 75 Mg Tablet, 75 MG PO DAILY PATIENT NEEDS REFILLS FOR THIS MED Esomeprazole Magnesium (Nexium) 40 Mg Capsule.dr, 40 MG PO DAILY Fluoxetine Hcl (Fluoxetine HCl) 20 Mg Capsule, 20 MG PO DAILY Hydrochlorothiazide (Hydrochlorothiazide) 25 Mg Tablet, 25 MG PO DAILY Hydroxychloroquine Sulfate (Hydroxychloroquine Sulfate) 200 Mg Tablet, 200 MG PO BID Insulin Glargine,Hum.rec.anlog (Basaglar Kwikpen U-100) 100 Unit/1 Ml Insuln.pen, 20 UNIT SC QHS Levomefolate/B6/B12/Algal Oil (Metanx Capsule) 1 Each Capsule, 1 CAP PO DAILY Lisinopril (Lisinopril) 40 Mg Tablet, 40 MG PO DAILY Metformin HCl (Metformin HCl) 1,000 Mg Tablet, 1,000 MG PO BID Pregabalin (Lyrica) 150 Mg Capsule, 150 MG PO BID Sitagliptin Phosphate (Januvia) 100 Mg Tablet, 100 MG PO DAILY Scheduled PRN Nitroglycerin (Nitrostat) 0.4 Mg Tab.subl, 0.4 MG SL NITRO PRN for CHEST PAIN Allergies Coded Allergies: Penicillins (Verified Allergy, Intermediate, hives, 10/27/18) meperidine (Verified Allergy, Unknown, 10/27/18) morphine (Verified Adverse Reaction, Intermediate, "sick", 10/27/18) A-FIB/CHADSVASC A-FIB History Current/History of A-Fib/PAF?: No ROSALIE GILLETTE MD Dec 30, 2019 22:20
[2019-12-30 23:15] VITALS: BP 151/65
[2019-12-30] MEDS: PREGABALIN 75 MG CAP(LYRICA) PO SCH (23:34)
[2019-12-30] MEDS: CARVedilol 12.5 MG TAB PO SCH (23:35)
[2019-12-30] MEDS: NS 1,000 ML IV SCH (23:37)
[2019-12-31 06:00] VITALS: BP 148/69
[2019-12-31 06:19] LABS: HEMATOCRIT 30.5 % (36.0-47.0); HEMOGLOBIN 9.4 g/dl (12.0-15.5); MEAN CORPUSCULAR HEMOGLOBIN 24.9 pg (27.0-33.0); MEAN CORPUSCULAR HGB CONC 30.8 g/dl (32.0-36.5); MEAN CORPUSCULAR VOLUME 80.7 fl (80.0-96.0); PLATELET COUNT, AUTOMATED 233 10^3/uL (150-450); RED BLOOD COUNT 3.78 10^6/uL (4.00-5.40); WHITE BLOOD COUNT 6.7 10^3/uL (4.0-10.0)
[2019-12-31 06:47] LABS: ALBUMIN 3.1 GM/DL (3.2-5.2); ALT/SGPT 44 U/L (12-78); BILIRUBIN,TOTAL 0.2 MG/DL (0.2-1.0); BLOOD UREA NITROGEN 19 MG/DL (7-18); CALCIUM LEVEL 8.1 MG/DL (8.8-10.2); CARBON DIOXIDE LEVEL 26 MEQ/L (21-32); CHLORIDE LEVEL 106 MEQ/L (98-107); GLOMERULAR FILTRATION RATE > 60.0 (>45); GLUCOSE, FASTING 117 MG/DL (70-100); SODIUM LEVEL 139 MEQ/L (136-145); TOTAL PROTEIN 6.1 GM/DL (6.4-8.2)
[2019-12-31] MEDS: HumaLOG INSULIN (NovoLOG) PER UNIT SC SCH ×2 (08:45→12:21)
[2019-12-31] MEDS: PREGABALIN 75 MG CAP(LYRICA) PO SCH (08:47)
[2019-12-31 08:49] VITALS: BP 160/72
[2019-12-31] MEDS: CARVedilol 12.5 MG TAB PO SCH (08:49)
[2019-12-31] MEDS ORDERED: lisinopriL 40 MG TAB PO SCH (09:00)
[2019-12-31] MEDS ORDERED: ENOXAPARIN 40MG/0.4ML SYRINGE (J1650 PER 10MG) SC SCH (09:00)
[2019-12-31] MEDS ORDERED: CETIRIZINE (ZyrTEC) 10 MG TAB PO SCH (09:00)
[2019-12-31] MEDS ORDERED: FLUoxetine 20 MG CAP PO SCH (09:00)
[2019-12-31] MEDS ORDERED: PANTOPRAZOLE 40MG TAB (PROTONIX) PO SCH (09:00)
[2019-12-31] MEDS ORDERED: VITAMIN D 1,000 INTERNATIONAL UNITS TABLET PO SCH (09:00)
[2019-12-31] MEDS ORDERED: CLOPIDOGREL 75 MG TAB PO SCH (09:00)
[2019-12-31] MEDS: NS 1,000 ML IV SCH (10:36)
--- NOTE | 2019-12-31 15:28 | DS.PDOC ---
Discharge Summary General Date of Admission Dec 30, 2019 at 21:38 Date of Discharge 12/31/2019 Attending Physician: JAM CROWDER MD Discharge Summary PROCEDURES PERFORMED DURING STAY: None ADMITTING DIAGNOSES: 1. Syncope DISCHARGE DIAGNOSES: 1. Syncope 2/2 dehydration 2. Coronary artery disease. 3. Hypertension. 4. Hyperlipidemia. 5. Diabetes mellitus COMPLICATIONS/CHIEF COMPLAINT: Syncope. HISTORY OF PRESENT ILLNESS: 69-year-old W with past medical history of coronary artery disease status post stent placement 2, hypertension, diabetes mellitus and hyperlipidemia who presented from home after a witnessed syncopal episode, without any prodromal symptoms in the setting of poor PO for approximately 2 days. HOSPITAL COURSE: In the ED, she was normotensive/borderline low BP, was given IV fluids, EKG was non ischemic, troponin negative, CXR wnl, CT head without acute intracranial abnormalities and she was in NSR on telemetry. Orthostatics were negative and on day 2 AM she ambulated well with PT, without any symptoms of dizziness, orthostasis. She had TTE done and will follow up outpatient with her cotton program technician Dr. Polk and is being discharged home with recommendation to adequately stay hydrated. DISCHARGE MEDICATIONS: Please see below. ALLERGIES: Please see below. PHYSICAL EXAMINATION ON DISCHARGE: VITAL SIGNS: Please see below. GENERAL: No distress HEENT: Normocephalic, atraumatic, moist mucous membranes NECK: Supple CARDIOVASCULAR EXAMINATION: S1, S2, no murmurs RESPIRATORY EXAMINATION: Clear to auscultation, no wheezing ABDOMINAL EXAMINATION: Obese, Soft, nontender, nondistended, normoactive bowel sounds EXTREMITIES: Range of motion intact SKIN: No rash NEUROLOGICAL EXAMINATION: Alert and oriented 3, no focal deficits, normal gait PSYCHIATRIC EXAMINATION: Calm and cooperative LABORATORY DATA: See below. LABORATORY DATA: Please see below. IMAGING: Chest x-ray and head CT negative for acute pathology PROGNOSIS: Good ACTIVITY: As tolerated DIET: Consistent carb DISCHARGE PLAN: Home DISPOSITION: 01 Home, Self-Care. DISCHARGE INSTRUCTIONS: 1. Please stay hydrated. ITEMS TO FOLLOWUP ON ON OUTPATIENT: 1. Syncope. To follow up with PCP and cardiology DISCHARGE CONDITION: Stable TIME SPENT ON DISCHARGE: 32 minutes. Vital Signs/I&Os Vital Signs Date Time Temp Pulse Resp B/P (MAP) Pulse Ox O2 Delivery O2 Flow Rate FiO2 12/31/19 08:49 64 160/72 12/31/19 06:00 97.0 18 97 Room Air I&O- Last 24 Hours up to 6 AM 12/31/19 06:00 Intake Total 1700 ml Output Total 300 ml Balance 1400 ml Laboratory Data Labs 24H Laboratory Tests 2 12/30/19 19:24: POC Troponin I (Misc) 0.00 12/30/19 19:26: Immature Granulocyte % (Auto) 0.3, Neutrophils (%) (Auto) 75.0H, Lymphocytes (%) (Auto) 16.1L, Monocytes (%) (Auto) 5.9H, Eosinophils (%) (Auto) 2.1, Basophils (%) (Auto) 0.6, Neutrophils # (Auto) 4.9, Lymphocytes # (Auto) 1.1L, Monocytes # (Auto) 0.4, Eosinophils # (Auto) 0.1, Basophils # (Auto) 0.0, Nucleated Red Blood Cells % (auto) 0.0, Anion Gap 12, Glomerular Filtration Rate 44.3L, Calcium Level 8.0L, Magnesium Level 1.8, Total Creatine Kinase 114, Thyroid Stimulating Hormone (TSH) 1.790, Ethyl Alcohol Level 0.005 12/30/19 23:26: Bedside Glucose (Misc Panel) 99 12/31/19 05:26: Nucleated Red Blood Cells % (auto) 0.0, Anion Gap 7L, Glomerular Filtration Rate > 60.0, Calcium Level 8.1L, Total Bilirubin 0.2, Aspartate Amino Transf (AST/SGOT) 26, Alanine Aminotransferase (ALT/SGPT) 44, Alkaline Phosphatase 58, Total Protein 6.1L, Albumin 3.1L, Albumin/Globulin Ratio 1.0L 12/31/19 11:42: Bedside Glucose (Misc Panel) 141H CBC/BMP Laboratory Tests 12/30/19 19:26 12/31/19 05:26 FSBS Laboratory Tests Test 12/30/19 23:26 12/31/19 11:42 Range/Units Bedside Glucose (Misc Panel) 99 141 80-115 MG/DL Discharge Medications Scheduled Alprazolam (Xanax) 0.5 Mg Tablet, 0.5 MG PO QHS, (Reported) Atorvastatin Calcium (Atorvastatin Calcium) 40 Mg Tablet, 40 MG PO QHS, (Re ported) Carvedilol (Carvedilol) 12.5 Mg Tablet, 12.5 MG PO BID, (Reported) Cetirizine HCl (Cetirizine HCl) 10 Mg Tablet, 10 MG PO DAILY, (Reported) Cholecalciferol (Vitamin D3) (Vitamin D3) 1,000 Unit Tablet, 1,000 UNITS PO DAILY, (Reported) Clopidogrel Bisulfate (Plavix) 75 Mg Tablet, 75 MG PO DAILY, (Reported) PATIENT NEEDS REFILLS FOR THIS MED Esomeprazole Magnesium (Nexium) 40 Mg Capsule.dr, 40 MG PO DAILY, (Reported) Fluoxetine Hcl (Fluoxetine HCl) 20 Mg Capsule, 20 MG PO DAILY, (Reported) Hydrochlorothiazide (Hydrochlorothiazide) 25 Mg Tablet, 25 MG PO DAILY, (Reported) Hydroxychloroquine Sulfate (Hydroxychloroquine Sulfate) 200 Mg Tablet, 200 MG PO BID, (Reported) Insulin Glargine,Hum.rec.anlog (Basaglar Kwikpen U-100) 100 Unit/1 Ml Insuln.pen, 20 UNIT SC QHS, (Reported) Levomefolate/B6/B12/Algal Oil (Metanx Capsule) 1 Each Capsule, 1 CAP PO DAILY, (Reported) Lisinopril (Lisinopril) 40 Mg Tablet, 40 MG PO DAILY, (Reported) Metformin HCl (Metformin HCl) 1,000 Mg Tablet, 1,000 MG PO BID, (Reported) Pregabalin (Lyrica) 150 Mg Capsule, 150 MG PO BID, (Reported) Sitagliptin Phosphate (Januvia) 100 Mg Tablet, 100 MG PO DAILY, (Reported) Scheduled PRN Nitroglycerin (Nitrostat) 0.4 Mg Tab.subl, 0.4 MG SL NITRO PRN for CHEST PAIN, (Reported) Allergies Coded Allergies: Penicillins (Verified Allergy, Intermediate, hives, 10/27/18) meperidine (Verified Allergy, Unknown, 10/27/18) morphine (Verified Adverse Reaction, Intermediate, "sick", 10/27/18) JAM CROWDER MD Dec 31, 2019 15:28
--- NOTE | 2019-12-31 21:27 | ECGEPIP ---
[facility] - ED Test Date: 2019-12-30 Pat Name: BERTHA SMITH Department: Room: [place] [address] Gender: Female Clinical Interviewer: ef : 1950 Requested By: ROD SHIPLEY Order Number: [id number] Reading MD: Dimas Manzanares Measurements Intervals [place] Rate: 69 P: 52 OK: 163 QRS: 32 QRSD: 85 T: 53 QT: 440 QTc: 472 Interpretive Statements SINUS RHYTHM NSTTW ABNORMALITIES SIMILAR TO 11/06/18 Electronically Signed on 12-31-2019 21:27:08 EDT by Dimas Manzanares
--- NOTE | 2020-01-01 19:39 | ECHO ---
DATE OF PROCEDURE: 12/31/2019 DATE OF : 1950 AGE: 69 REFERRING PROVIDER: Dr. Hoover PATIENT LOCATION: Room 4236 REASON FOR THE STUDY: Syncope. 2D MEASUREMENTS: IVS: 1.4 cm LV: 4.3 cm LVPW: 1.4 cm LA: 4.2 cm Aorta: 2.6 cm DOPPLER MEASUREMENTS: Peak velocity across the aortic valve: 1.2 meters per second Peak velocity across the LVOT: 0.65 meters per second Mitral E: 0.82, Mitral A: 0.58 with a ratio of 1.4 Maximum tricuspid valve velocity: 2.0 meters per second 2D COMMENTS: 1. Normal left ventricular size with mildly increased left ventricular wall thickness. Left ventricular systolic function is normal, estimated at 65-70%. 2. Mildly enlarged left atrium. Normal right atrium and right ventricle. 3. The atrial septum appeared to be normal without evidence of defect or shunt. 4. Normal aortic root. 5. Trace pericardial effusion noted, no evidence of cardiac tamponade. 6. Mildly calcified aortic valve with normal leaflet excursion. Mildly calcified mitral annulus with normal anterior mitral valve leaflet motion. Normal tricuspid valve and pulmonic valve. The proximal pulmonary artery branches were not well visualized. 7. The inferior vena cava was not well visualized. DOPPLER: It detects trace mitral regurgitation and trace tricuspid regurgitation. The calculated pulmonary artery systolic pressure was normal. Abnormal relaxation pattern was noted across the mitral valve leaflets as well as the mitral valve annulus consistent with features of grade 2 left ventricular diastolic dysfunction. IMPRESSION: 1. Normal global left ventricular systolic function with mild concentric left ventricular hypertrophy. There are some features of left ventricular diastolic dysfunction, grade 2. 2. Aortic valve sclerosis without stenosis or aortic regurgitation. 3. Mitral annulus calcification with trace mitral regurgitation and a mildly enlarged left atrium. 4. Trace tricuspid regurgitation with a normal calculated pulmonary artery systolic pressure. 5. Trace pulmonic regurgitation. 6. Trace pericardial effusion, no evidence of cardiac tamponade. [facility]
== END 2019-12-31 13:33 | disposition home or self-care (01) ==
LOC: M ED 18:28 → EDBD 18:28 → M ED INP 21:38 → ENRESERV 22:28 → M MSPAV 23:15
PROVIDERS: ADMIT Internal Medicine; ATTEND Internal Medicine
DX: R55 Syncope and collapse (principal); I11.0 Hypertensive heart disease with heart failure; E78.5 Hyperlipidemia, unspecified; E11.9 Type 2 diabetes mellitus without complications; I25.10 Atherosclerotic heart disease of native coronary artery without angina pectoris; Z95.5 Presence of coronary angioplasty implant and graft; I25.2 Old myocardial infarction; E03.9 Hypothyroidism, unspecified; M54.5 Low back pain; I50.9 Heart failure, unspecified; Z79.899 Other long term (current) drug therapy; Z79.02 Long term (current) use of antithrombotics/antiplatelets; Z79.4 Long term (current) use of insulin; Z88.0 Allergy status to penicillin; Z88.5 Allergy status to narcotic agent
CPT/HCPCS: 36415; 70450; 71045; 80048; 80053; 82550; 83735; 84443; 84484; 85025; 85027; 93005; 93041; 93306; 94760; 96372; 96374; 97161; 97165; 99285; G0378; G0480; J1650; J2405

== ENCOUNTER → 2020-05-06 | Outpatient (CLI) | payer MEDICARE ==
[~2020-05-06] MED LIST changes: -ALL10TAB29 PO; +CETI-24 PO; +D31000TA2 PO; +LISI40TA PO
[2020-05-06 11:39] LABS: BLOOD UREA NITROGEN 16 MG/DL (7-18); CALCIUM LEVEL 8.2 MG/DL (8.8-10.2); CARBON DIOXIDE LEVEL 28 MEQ/L (21-32); CHLORIDE LEVEL 105 MEQ/L (98-107); CHOLESTEROL LEVEL 100 MG/DL (<200); CHOLESTEROL RISK RATIO 1.785 (<5); CREATININE FOR GFR 0.83 MG/DL (0.55-1.30); GLOMERULAR FILTRATION RATE > 60.0 (>45); GLUCOSE, FASTING 71 MG/DL (70-100); HDL CHOLESTEROL 56 MG/DL (>40); LDL CHOLESTEROL 33 MG/DL (<100); MALB URINE SIEMENS 7.9 MG/L; MAU/CREAT RATIO 6.2 MCG/MG (0.0-30.0); NON-HDL-C 44 MG/DL; POTASSIUM SERUM 3.6 MEQ/L (3.5-5.1); SODIUM LEVEL 141 MEQ/L (136-145); TRIGLYCERIDES LEVEL 56 MG/DL (<150)
[2020-05-06 12:24] LABS: HEMOGLOBIN A1c 6.8 %
== END ==
LOC: M LAB 10:06
PROVIDERS: ATTEND Physician Assistant
DX: E11.65 Type 2 diabetes mellitus with hyperglycemia (principal); Z79.4 Long term (current) use of insulin

== ENCOUNTER → 2020-06-28 | Outpatient (CLI) | payer MEDICARE ==
[~2020-06-28] MED LIST changes: +ECOT81TA5 PO; +NEURIVA
[2020-06-28 09:01] LABS: HEMOGLOBIN 10.4 g/dl (12.0-15.5); MEAN CORPUSCULAR HEMOGLOBIN 25.5 pg (27.0-33.0); MEAN CORPUSCULAR HGB CONC 30.6 g/dl (32.0-36.5); MEAN CORPUSCULAR VOLUME 83.3 fl (80.0-96.0); PLATELET COUNT, AUTOMATED 231 10^3/uL (150-450); RED BLOOD COUNT 4.08 10^6/uL (4.00-5.40); WHITE BLOOD COUNT 6.2 10^3/uL (4.0-10.0)
[2020-06-28 09:11] LABS: INR 1.03; PROTHROMBIN TIME 13.7 SECONDS (12.5-14.3)
[2020-06-28 09:26] LABS: ALBUMIN 3.4 GM/DL (3.2-5.2); ALT/SGPT 56 U/L (12-78); BILIRUBIN,TOTAL 0.2 MG/DL (0.2-1.0); BLOOD UREA NITROGEN 16 MG/DL (7-18); CALCIUM LEVEL 8.5 MG/DL (8.8-10.2); CARBON DIOXIDE LEVEL 28 MEQ/L (21-32); CHLORIDE LEVEL 107 MEQ/L (98-107); CREATININE FOR GFR 0.82 MG/DL (0.55-1.30); GLOMERULAR FILTRATION RATE > 60.0 (>45); GLUCOSE, FASTING 143 MG/DL (70-100); POTASSIUM SERUM 3.7 MEQ/L (3.5-5.1); SODIUM LEVEL 141 MEQ/L (136-145); TOTAL PROTEIN 6.7 GM/DL (6.4-8.2)
--- NOTE | 2020-06-28 10:48 | REP ---
INDICATION: TOTAL RIGHT KNEE ARTHROPLASTY/PREOP/LABS. COMPARISON: December 30, 2019. TECHNIQUE: Two views.. FINDINGS: There is mild linear density in the left inferior perihilar region consistent with fibrosis. This is unchanged from the October 27, 2018 prior radiograph. Lateral view suggests the presence of coronary artery stent material. Heart is not enlarged. Aorta is slightly tortuous. There are degenerative changes in the thoracic spine. Pulmonary vasculature is not increased. No infiltrate is seen. Pleural angles are sharp. IMPRESSION: Linear fibrosis left inferior hemithorax. Otherwise no acute disease.. <Electronically signed by Mac Ramirez > 06/28/20 0230
--- NOTE | 2020-06-28 21:47 | ECGEPIP ---
[facility] Test Date: 2020-06-28 Pat Name: BERTHA SMITH Department: Room: - Gender: Female Earth [employer]er: SUGEY : 1950 Requested By: Sohan Lin Order Number: [id number] Reading MD: Jordan Talbert Measurements Intervals [place] Rate: 67 P: 57 MI: 175 QRS: 28 QRSD: 92 T: 59 QT: 428 QTc: 453 Interpretive Statements SINUS RHYTHM Improved repolarization compared with 12/30/2019. Electronically Signed on 06-28-2020 21:46:47 EST by Jordan Talbert
== END ==
LOC: M LAB 08:30
PROVIDERS: ATTEND Orthopaedic Surgery
DX: Z01.818 Encounter for other preprocedural examination (principal); M17.11 Unilateral primary osteoarthritis, right knee

== ENCOUNTER → 2020-07-13 | Outpatient (CLI) | payer MEDICARE ==
[~2020-07-13] MED LIST changes: +XARE10TA PO
== END ==
LOC: M LABSMTC 10:08
PROVIDERS: ATTEND Anesthesiology
DX: Z01.812 Encounter for preprocedural laboratory examination (principal); Z20.828 Contact with and (suspected) exposure to other viral communicable diseases

== ENCOUNTER 2020-07-18 08:47 | Inpatient (IN) | payer MEDICARE, OTHER ==
[~2020-07-18] VITALS: Ht 152.4 cm; Wt 70.8 kg
[~2020-07-18 08:47] MED LIST changes: +CLINDAMYCIN 900 MG in IV 1 EA IV ONE; +LR 1,000 ML IV ONE; +MIDAZOLAM INJ 2MG/2ML VIAL (J2250 PER 1MG) IV PRN; -XARE10TA PO; +fentaNYL 100 MCG/2 ML INJECTION (J3010) IV PRN
[2020-07-18] MEDS ORDERED: TRANEXAMIC ACID 100 MG/ML 10ML VIAL As Ordered ONE ×2 (10:45→14:28)
[2020-07-18] MEDS ORDERED: BUPIVACAINE HCL 0.25% 10ML VIAL As Ordered ONE ×2 (10:45→14:28)
[2020-07-18] MEDS ORDERED: ceFAZolin 1GM VIAL (J0690 PER 500MG) As Ordered ONE (10:46)
[2020-07-18] MEDS ORDERED: EPINEPHrine INJ 1 MG/ML 1ML AMP As Ordered ONE ×2 (10:46→14:29)
[2020-07-18] MEDS ORDERED: BUPIVACAINE LIPOSOME/PF 1.3% 20ML VIAL (13.3MG/ML)(EXPAREL)(C9290 PER1MG) As Ordered ONE ×2 (10:47→14:29)
[2020-07-18] MEDS ORDERED: EPINEPHrine INJ 1 MG/ML 1ML AMP XX ONE (14:15)
[2020-07-18] MEDS ORDERED: ROPIvacaine 0.5% 30ML INJECTION (J2795 PER 1MG) XX ONE (14:15)
[2020-07-18] MEDS ORDERED: dexameTHASONE 10MG/1ML VIAL PRES.FREE (J1100 PER 1MG) XX ONE (14:15)
[2020-07-18] MEDS ORDERED: CLINDAMYCIN INJ 900MG/6ML VIAL As Ordered ONE (14:29)
--- NOTE | 2020-07-18 14:38 | IPN ---
PROGRESS NOTE DATE: 07/18/2020 Patient seen and examined. She wishes to go ahead with a right total knee arthroplasty. She understands the nature of this; this risks of bleeding, infection, damage nerves and vessels, persistent pain, wear, loosening, blood clots, and medical problems among others. Preop clearance was obtained.
[2020-07-18] MEDS ORDERED: MIDAZOLAM INJ 2MG/2ML VIAL (J2250 PER 1MG) As Ordered ONE (15:09)
[2020-07-18] MEDS ORDERED: propofoL 200 MG/20 ML VIAL As Ordered ONE (15:09)
[2020-07-18] MEDS ORDERED: fentaNYL 100 MCG/2 ML INJECTION (J3010) As Ordered ONE (15:09)
--- NOTE | 2020-07-18 16:44 | RO ---
OPERATIVE NOTE DATE OF OPERATION: 07/18/2020 PREOPERATIVE DIAGNOSIS: Right knee osteoarthritis. POSTOPERATIVE DIAGNOSIS: Right knee osteoarthritis. PROCEDURE: Right total knee arthroplasty using an Attune rotating platform posterior stabilized size 2 femur, size 3 tibia, 7 polyethylene, 32 patellar button. SURGEON: Sohan Lin M.D. TEST AUTOMATION ARCHITECT: DANAY Valle ANESTHESIA: Spinal. ESTIMATED BLOOD LOSS: 50 mL. COMPLICATIONS: None. DESCRIPTION OF PROCEDURE: The patient was taken to the operating room and placed in the supine position after spinal anesthesia was induced. The right lower extremity was prepped and draped in the usual sterile fashion, time-out was performed, tourniquet was inflated, and a longitudinal incision was made over the anterior aspect of the knee. A medial parapatellar arthrotomy was performed per routine and removed some of the fat pad for visualization. I did a proximal medial release on the tibial side, flexed the knee up, used the rongeur to remove osteophytes, and used the canal initiating reamer on the femoral side, followed by the intramedullary guide set at 5 degrees of valgus 9 mm cut. This was pinned in place and I took an additional 2 mm because of flexion contracture. I then sized the femur to be a 2 and the drill holes were placed in the end of the femur. The cutting block was secured and the remaining cuts were made. I then prepared the tibia. The tibial alignment guide was then placed. The appropriate amount of valgus and posterior slope was dialed in and then, I made the proximal tibia cut protecting soft tissues. I then used the curing supervisor to remove soft tissue from either side. I removed some osteophytes as well. It was evident that the PCL was intact and actually fairly tight at this point. I trialed spacer blocks and was deciding between the 6 and the 7. The tibial surface was prepared and a size 3 tray was secured, drilled, and broached. I also did the sulcus cut on the femur with the guide and the saw. At this point, trial components were placed and it was really quite tight in flexion with the polyethylene spitting out even with a 6 and the 7 felt better in extension; so elected to converted to a posterior stabilized, which would allow me to balance the tissues more easily. The cutting block was secured to the end of the femur and the three cuts were made removing the box and the remaining PCL. I then placed trial components and was much more pleased with the size 7 polyethylene. There was no spitting out of the poly, excellent stability in flexion and extension, and excellent alignment. I then freehand cut the patella removing about 7 mm of bone, sized to be a 32, and the drill holes were placed. I placed the drill holes in the end of the femur as well and the trial components were removed. I irrigated copiously and dried the bony surfaces. The child center assistant prepared the bone cement in the modern technique on the back table. I injected some Exparel into the posterior capsule, but aspirating first and then around the periosteum. The surfaces once they were irrigated and dried, I then cemented in the components; removed excess bone cement, held the patella in place with the patellar clamp, irrigated again, and placed the TXA deep in the wound, and then began closing with 1-Vicryl suture and running STRATAFIX suture. Then, a final deep irrigation was performed prior to final wound closure. I then irrigated, closed the subcutaneous with 2-0 Vicryl, and the skin with anthony. A sterile dressing was applied, the tourniquet was deflated, and she was taken to the recovery room in stable condition. There were no known complications. POSTOPERATIVE PLAN: Routine postop. NOTE: The child center assistant was instrumental in holding retractors, assisting in mixing the bone cement, and assisting in wound closure.
[2020-07-18] MEDS ORDERED: METOCLOPRAMIDE INJ 10MG/2ML VIAL (J2765 PER 1) IV PRN (16:45)
[2020-07-18] MEDS ORDERED: HYDROMORPHONE HCL 0.5 MG/ 0.5 ML SYRINGE (J1170 PER 1) IV PRN ×3 (16:45→18:30)
[2020-07-18] MEDS ORDERED: ACETAMINOPHEN TAB 650MG DOSE (2X325MG) PO PRN (16:45)
[2020-07-18] MEDS ORDERED: oxyCODONE 5MG TAB PO PRN (16:45)
[2020-07-18] MEDS ORDERED: ONDANSETRON 4MG/2ML VIAL IV PRN ×2 (16:45)
[2020-07-18] MEDS ORDERED: fentaNYL 100 MCG/2 ML INJECTION (J3010) IV PRN (16:45)
[2020-07-18] MEDS ORDERED: LR 1,000 ML IV SCH ×2 (16:45)
--- NOTE | 2020-07-18 17:26 | CR.PDOC ---
General Date of Consultation: Jul 18, 2020 Consultation REASON FOR CONSULTATION/CHIEF COMPLAINT: Right knee arthroplasty HISTORY OF PRESENT ILLNESS: 69-year-old female with past medical history of coronary artery disease status post stent placement 2, hypertension, diabetes mellitus and hyperlipidemia presents to the hospital for elective right knee total replacement. Procedure was done today, patient tolerates procedure well. Patient denied fever, chills, nausea, vomiting, diarrhea or dysuria ALLERGIES: Please see below. HOME MEDICATIONS: Please see below. PAST MEDICAL HISTORY: 1. Coronary artery disease. 2. Hypertension. 3. Hyperlipidemia. 4. Diabetes mellitus PAST SURGICAL HISTORY: 1. Multiple orthopedic surgeries. 2. Coronary stent placement 2. FAMILY HISTORY: I personally reviewed family history and found not pertinent SOCIAL HISTORY: Denies smoking. Social alcohol use. Denies drug use REVIEW OF SYSTEMS: 10 point review system negative except as listed above PHYSICAL EXAMINATION: VITAL SIGNS: Please see below. GENERAL: No distress HEENT: Normocephalic, atraumatic, moist mucous membranes NECK: Supple CARDIOVASCULAR EXAMINATION: S1, S2, no murmurs RESPIRATORY EXAMINATION: Clear to auscultation, no wheezing ABDOMINAL EXAMINATION: Soft, nontender, nondistended, positive bowel sounds EXTREMITIES: Limited range of motion of right knee SKIN: No rash NEUROLOGICAL EXAMINATION: Alert and oriented 3, no focal deficits PSYCHIATRIC EXAMINATION: Calm and cooperative LABORATORY DATA: See below. LABORATORY DATA: Please see below. ASSESSMENT/PLAN: 69-year-old female with past medical history of coronary artery disease status post stent placement 2, hypertension, diabetes mellitus and hyperlipidemia presents to the hospital for elective right knee total replacement. Procedure was done today, patient tolerates procedure well. Patient denied fever, chills, nausea, vomiting, diarrhea or dysuria Status post right total knee replacement Anticoagulation per Orthopedic team Pain management Hypertension. Continue home cardioprotective medications Hyperlipidemia. Continue statin Diabetes Insulin sliding scale Detemir twice a day Vital Signs/I&O Vital Signs Date Time Temp Pulse Resp B/P (MAP) Pulse Ox O2 Delivery O2 Flow Rate FiO2 07/18/20 16:45 63 18 169/74 (105) 94 Room Air 07/18/20 16:16 97.2 07/18/20 14:40 2 Laboratory Data Labs 24H Laboratory Tests 2 07/18/20 13:47: Erythrocyte Sedimentation Rate 35H 07/18/20 13:58: Bedside Glucose (Misc Panel) 126H Allergies Coded Allergies: Penicillins (Verified Allergy, Intermediate, hives, 10/27/18) meperidine (Verified Allergy, Unknown, 10/27/18) morphine (Verified Adverse Reaction, Intermediate, "sick", 10/27/18) Home Medications Scheduled Alprazolam (Xanax) 0.5 Mg Tablet, 0.5 MG PO QHS, (Reported) Aspirin (Ecotrin) 81 Mg Tablet.dr, 81 MG PO DAILY, (Reported) Atorvastatin Calcium (Atorvastatin Calcium) 40 Mg Tablet, 40 MG PO QHS, (Reported) Carvedilol (Carvedilol) 12.5 Mg Tablet, 25 MG PO BID, (Reported) Cetirizine HCl (Cetirizine HCl) 10 Mg Tablet, 10 MG PO DAILY, (Reported) Cholecalciferol (Vitamin D3) (Vitamin D3) 1,000 Unit Tablet, 1,000 UNITS PO DAILY, (Reported) Esomeprazole Magnesium (Nexium) 40 Mg Capsule.dr, 40 MG PO DAILY, (Reported) Fluoxetine Hcl (Fluoxetine HCl) 20 Mg Capsule, 20 MG PO DAILY, (Reported) Hydrochlorothiazide (Hydrochlorothiazide) 25 Mg Tablet, 25 MG PO DAILY, (Reporte d) Hydroxychloroquine Sulfate (Hydroxychloroquine Sulfate) 200 Mg Tablet, 200 MG PO BID, (Reported) Insulin Glargine,Hum.rec.anlog (Basaglar Kwikpen U-100) 100 Unit/1 Ml Insuln.pen, 20 UNIT SC QHS, (Reported) Levomefolate/B6/B12/Algal Oil (Metanx Capsule) 1 Each Capsule, 1 CAP PO DAILY, (Reported) Lisinopril (Lisinopril) 40 Mg Tablet, 40 MG PO DAILY, (Reported) Metformin HCl (Metformin HCl) 1,000 Mg Tablet, 1,000 MG PO DAILY, (Reported) Pregabalin (Lyrica) 150 Mg Capsule, 150 MG PO BID, (Reported) Sitagliptin Phosphate (Januvia) 100 Mg Tablet, 100 MG PO DAILY, (Reported) [Neuriva] , DAILY, (Reported) Scheduled PRN Nitroglycerin (Nitrostat) 0.4 Mg Tab.subl, 0.4 MG SL NITRO PRN for CHEST PAIN, (Reported) JENY TOUSSAINT DO Jul 18, 2020 17:25
[2020-07-18] MEDS ORDERED: hydrALAZINE 20MG/ML 1ML VIAL (J0360 PER 20MG) IV STA (17:28)
[2020-07-18] MEDS: HumaLOG INSULIN (NovoLOG) PER UNIT SC SCH (17:30)
[2020-07-18] MEDS ORDERED: GLUCAGON INJ 1MG VIAL SC PRN (17:30)
[2020-07-18] MEDS ORDERED: NITROGLYCERIN 0.4 MG SUBL TABLET SL PRN (17:30)
[2020-07-18] MEDS ORDERED: DEXTROSE 50% 50 ML SYRINGE IV PRN (17:30)
[2020-07-18] MEDS ORDERED: GLUCOSE 4GM CHEW TABLET PO PRN (17:30)
[2020-07-18 17:45] VITALS: BP 191/84
[2020-07-18 17:59] VITALS: O2SAT 95
[2020-07-18 18:15] VITALS: BP 169/78
[2020-07-18] MEDS ORDERED: **hydrALAZINE HCL** 25 MG TAB PO ONE (18:15)
[2020-07-18] MEDS: PERCOCET 5MG/325MG TAB PO PRN (18:21)
[2020-07-18 20:15] VITALS: BP 136/58
[2020-07-18 21:00] VITALS: O2SAT 95
[2020-07-18] MEDS ORDERED: HumaLOG INSULIN (NovoLOG) PER UNIT SC SCH (21:00)
[2020-07-18] MEDS ORDERED: ALPRAZolam 0.5 MG TAB PO SCH (21:00)
[2020-07-18] MEDS ORDERED: ATORVASTATIN 20 MG TAB PO SCH (21:00)
[2020-07-18 21:15] VITALS: BP 131/60
[2020-07-18] MEDS: LEVEMIR (INSULIN DETEMIR) 1 UNITS/0.01ML SC SCH (22:11)
[2020-07-18] MEDS: PREGABALIN 75 MG CAP(LYRICA) PO SCH (22:13)
[2020-07-18] MEDS: HYDROXYCHLOROQUINE 200 MG TAB PO SCH (22:13)
[2020-07-18] MEDS: CARVedilol 12.5 MG TAB PO SCH (22:13)
[2020-07-18] MEDS: CLINDAMYCIN 900 MG in IV 1 EA IV SCH (22:14)
[2020-07-19 02:00] VITALS: BP 136/60
[2020-07-19 06:00] VITALS: BP 164/75
[2020-07-19] MEDS: CLINDAMYCIN 900 MG in IV 1 EA IV SCH (06:09)
[2020-07-19] MEDS: PERCOCET 5MG/325MG TAB PO PRN ×2 (06:09→10:34)
[2020-07-19 06:50] LABS: HEMATOCRIT 29.7 % (36.0-47.0); HEMOGLOBIN 8.9 g/dl (12.0-15.5); MEAN CORPUSCULAR HEMOGLOBIN 24.3 pg (27.0-33.0); MEAN CORPUSCULAR VOLUME 80.9 fl (80.0-96.0); PLATELET COUNT, AUTOMATED 215 10^3/uL (150-450); RED BLOOD COUNT 3.67 10^6/uL (4.00-5.40); WHITE BLOOD COUNT 9.9 10^3/uL (4.0-10.0)
[2020-07-19] MEDS ORDERED: PERC5TAB12 PO (07:18)
[2020-07-19] MEDS ORDERED: XARE10TA PO (07:18)
[2020-07-19] MEDS: HYDROXYCHLOROQUINE 200 MG TAB PO SCH (08:09)
[2020-07-19] MEDS: PREGABALIN 75 MG CAP(LYRICA) PO SCH (08:09)
[2020-07-19 08:10] VITALS: BP 164/75
[2020-07-19] MEDS: CARVedilol 12.5 MG TAB PO SCH (08:10)
[2020-07-19] MEDS: LEVEMIR (INSULIN DETEMIR) 1 UNITS/0.01ML SC SCH (08:11)
[2020-07-19] MEDS: HumaLOG INSULIN (NovoLOG) PER UNIT SC SCH ×2 (08:12→11:40)
[2020-07-19] MEDS ORDERED: FLUoxetine 20 MG CAP PO SCH (09:00)
[2020-07-19] MEDS ORDERED: VITAMIN D 1,000 INTERNATIONAL UNITS TABLET PO SCH (09:00)
[2020-07-19] MEDS ORDERED: MIRALAX *UNIT DOSE* 17GM PACKET PO SCH (09:00)
[2020-07-19] MEDS ORDERED: MOM 30ML SUSPENSION UDC PO SCH (09:00)
[2020-07-19] MEDS ORDERED: hydroCHLOROthiazide 25 MG TAB PO SCH (09:00)
[2020-07-19] MEDS ORDERED: lisinopriL 40 MG TAB PO SCH (09:00)
[2020-07-19] MEDS ORDERED: CETIRIZINE (ZyrTEC) 10 MG TAB PO SCH (09:00)
[2020-07-19] MEDS ORDERED: PANTOPRAZOLE 40MG TAB (PROTONIX) PO SCH (09:00)
--- NOTE | 2020-07-19 09:11 | REP ---
INDICATION: post op COMPARISON: None. TECHNIQUE: AP and cross-table lateral views. FINDINGS: Normal appearance and positioning to the femoral and tibial components. Overlying postsurgical changes and skin anthony noted. IMPRESSION: Status post right knee replacement. Satisfactory positioning. <Electronically signed by Scot Santoyo > 07/19/20 [id number]
[2020-07-19 10:00] VITALS: BP 118/76
[2020-07-19] MEDS ORDERED: RIVAROXABAN 10 MG TAB (XARELTO) PO SCH (18:00)
--- NOTE | 2020-07-20 10:22 | HPE ---
HISTORY AND PHYSICAL DATE OF ANTICIPATED ADMISSION: 07/18/2020 ATTENDING PHYSICIAN: Dr. Sohan Lin. CHIEF COMPLAINT: Right knee pain and stiffness. HISTORY OF PRESENT ILLNESS: The patient is a 69-year-old female with progressively worsening right knee pain and stiffness. She failed to improve with conservative measures. She continues to have symptoms with weightbearing activities and activities of daily living. She has consented for an elective right total knee arthroplasty with Dr. Lin for her continued symptoms. Medical optimization pending with Dr. Adrian Lin. CURRENT MEDICATIONS: 1. Prozac 20 mg daily. 2. Metformin 1000 mg twice daily. 3. Ventex one daily. 4. Januvia 100 mg daily. 5. Hydrochlorothiazide 25 mg daily. 6. Lisinopril 40 mg daily. 7. Vitamin D3, 2000 i.u. daily. 8. Pregabalin 150 mg two times daily. 9. Zyrtec 10 mg daily. 10.Carvedilol 25 mg daily. 11.Esomeprazole 40 mg daily. 12.Plaquenil 200 mg twice daily. 13.Atorvastatin 40 mg daily. 14.Baby aspirin once daily. ALLERGIES: Penicillin, Morphine, Demerol. CHRONIC MEDICAL CONDITIONS: Anxiety, depression, hypertension, hyperlipidemia, heart disease, history of AMI, Type 2 diabetes, gastroesophageal reflux disease. PAST SURGICAL HISTORY: Rotator cuff repair in both shoulders, L4-5 spinal fusion, appendectomy, heart stent, tubal ligation, left knee arthroplasty. SOCIAL HISTORY: Patient denies tobacco or alcohol use. REVIEW OF SYSTEMS: The patient denies fevers, chills, nausea, vomiting or diarrhea. She denies chest pain, shortness of breath, lightheadedness, dizziness or headaches. She denies any recent upper respiratory or urinary tract infection symptoms. She denies any abdominal pain. She does continue to have right knee pain with weightbearing activities and activities of daily living. PHYSICAL EXAMINATION: GENERAL: Well-nourished, well-developed female in no apparent distress. She is alert, oriented and cooperative. Mood and affect are appropriate. VITAL SIGNS: Height is 4 foot and 10 1/2 inches, weight 154.2 pounds, temperature is 97.3, blood pressure 152/88. Heart rate 75. Respirations are 14. NECK: Supple without lymphadenopathy. LUNGS: Clear to auscultation bilaterally. Breathing is regular and unlabored. ABDOMEN: Soft and nontender. Bowel sounds are present. MUSCULOSKELETAL: Right knee exhibits no gross abnormalities. Skin is intact. She is not using any assistive devices for ambulation. She does have a slight limp favoring the right lower extremity. Patient can extend the knee fully and flex to approximately 95 degrees. Right lower extremity strength is 5/5. No hip irritability elicited with range of motion testing. Calf is soft and nontender without evidence of DVT. She is neurovascularly intact distally. LABORATORY DATA: Chest x-ray: Linear fibrosis at the left inferior hemithorax. Otherwise, no acute distress. Right knee x-ray is notable for endstage degenerative changes. EKG: Sinus rhythm. Complete blood count: WBC is 6.2, RBC is 4.08, hemoglobin decreased at 10.4, hematocrit decreased at 34, platelets 231,000, pro-Thrombin time 13.7, INR 1.03. Comprehensive metabolic profile: Fasting glucose elevated at 143, BUN 16, creatinine 0.82, GFR greater than 60. Sodium 141, potassium 3.8, chloride 108, carbon dioxide 28, anion gap decreased at 6, calcium decreased at 8.5. AST is 26 and ALT is 56. Alkaline phosphatase is 79 and total bilirubin 0.2, total protein 6.7, albumin 3.4, albumin globulin ratio decreased at 1.0. IMPRESSION: Right knee osteoarthritis with x-rays notable for endstage degenerative changes. PLAN: The patient has consented for an elective right total knee arthroplasty with Dr. Lin for her continued symptoms. Patient will be NPO after midnight the night prior to surgery unless instructed to take any medications with a small sip of water by her primary assistant child care teacher. The patient understands she will follow primary care manger's recommendations for taking daily medications and when to stop anticoagulants. She will use her Hibiclens and Bactroban as directed. She will complete her COVID test prior to her surgical date.
--- NOTE | 2020-07-21 11:34 | DSES ---
DISCHARGE SUMMARY DATE OF ADMISSION: 07/18/2020 DATE OF DISCHARGE: 07/19/2020 ATTENDING PHYSICIAN: Sohan Lin M.D. ADMITTING DIAGNOSIS: Right knee osteoarthritis. OTHER DIAGNOSES: 1. Anxiety/depression. 2. Hypertension. 3. Hyperlipidemia. 4. Heart disease. 5. History of AMI. 6. Type-2 diabetes. 7. Gastroesophageal reflux disease. DISCHARGE DIAGNOSIS: Right knee osteoarthritis status post right total knee arthroplasty. HISTORY: Patient is a 69-year-old female with progressively worsening right knee pain and stiffness. She failed to improve with conservative measures. She continued to have symptoms with weightbearing activities and activities of daily living. She consented for an elective right total knee arthroplasty with Dr. Lin for her continued symptoms. OPERATION PERFORMED: Right total knee arthroplasty. HOSPITAL COURSE: The patient underwent a right total knee arthroplasty under spinal anesthesia which was uneventful. Her hospital course was without complication and she was up with physical therapy per their protocol weightbearing as tolerated on the right lower extremity. Patient was discharged on oral pain medications and will resume her pre-operative medications and diet. Patient will use her thromboembolic deterrent stockings and take her anticoagulant post-operatively to prevent deep venous thrombosis. Patient will follow up in our office in 12-14 days for wound check and staple removal. She is encouraged to contact our office sooner if there is any increase in pain, redness, drainage, numbness or tingling in the extremity, fever greater than 101 degrees or any other concerns. Please see medical records for additional details. Co-Signer: Sohan Lin MD
== END 2020-07-19 13:00 | disposition home or self-care (01) | DRG 470 ==
LOC: M OR 13:13 → M MS5PR 17:40
PROVIDERS: ADMIT Orthopaedic Surgery; ATTEND Orthopaedic Surgery
PROC: 0SRC0J9 Replacement of Right Knee Joint with Synthetic Substitute, Cemented, Open Approach (ICD-10-PCS; principal; 2020-07-18 15:00)
DX: M17.11 Unilateral primary osteoarthritis, right knee (principal); I10 Essential (primary) hypertension; E11.9 Type 2 diabetes mellitus without complications; I25.10 Atherosclerotic heart disease of native coronary artery without angina pectoris; I25.2 Old myocardial infarction; K21.9 Gastro-esophageal reflux disease without esophagitis; E78.5 Hyperlipidemia, unspecified; F41.9 Anxiety disorder, unspecified; F32.9 Major depressive disorder, single episode, unspecified; Z95.2 Presence of prosthetic heart valve; Z79.899 Other long term (current) drug therapy; Z79.82 Long term (current) use of aspirin; Z79.4 Long term (current) use of insulin; Z88.0 Allergy status to penicillin; Z88.8 Allergy status to other drugs, medicaments and biological substances; Z88.5 Allergy status to narcotic agent

== ENCOUNTER 2020-11-21 11:48 | Inpatient (IN) | payer MEDICARE, MEDICAID ==
[~2020-11-21] VITALS: Ht 152.4 cm; Wt 68.7 kg
[~2020-11-21 11:48] MED LIST changes: -CLINDAMYCIN 900 MG in IV 1 EA IV ONE; +HYDR-3490 PO; -HYDR25TAB PO; -LISI40TA PO; +LISI40TA4 PO; -LR 1,000 ML IV ONE; -MIDAZOLAM INJ 2MG/2ML VIAL (J2250 PER 1MG) IV PRN; +XARE10TA PO; -fentaNYL 100 MCG/2 ML INJECTION (J3010) IV PRN
[2020-11-21 12:43] LABS: BASO # 0.1 10^3/uL (0.0-0.2); BASO % 0.9 % (0.0-1.0); EOS # 0.2 10^3/uL (0.0-0.5); EOS % 3.4 % (0.0-3.0); HEMATOCRIT 32.7 % (36.0-47.0); HEMOGLOBIN 9.8 g/dl (12.0-15.5); LYMPH # 1.2 10^3/uL (1.5-5.0); LYMPH % 20.5 % (24.0-44.0); MEAN CORPUSCULAR HEMOGLOBIN 23.8 pg (27.0-33.0); MEAN CORPUSCULAR VOLUME 79.4 fl (80.0-96.0); MONO # 0.3 10^3/uL (0.0-0.8); MONO % 5.7 % (2.0-8.0); PLATELET COUNT, AUTOMATED 279 10^3/uL (150-450); RED BLOOD COUNT 4.12 10^6/uL (4.00-5.40); WHITE BLOOD COUNT 5.8 10^3/uL (4.0-10.0)
[2020-11-21 13:12] LABS: INR 1.06
[2020-11-21 13:13] LABS: PARTIAL THROMBOPLASTIN TIME 35.8 SECONDS (24.2-38.5)
--- NOTE | 2020-11-21 13:32 | REP ---
INDICATION: CVA - Nursing interventions must not delay CT. COMPARISON: Comparison brain CT study December 30, 2019.. TECHNIQUE: Helical scanning is acquired. 5 mm axial images were reformatted. Coronal MPR images were generated. FINDINGS: Bone window settings demonstrate an intact bony calvarium. There is no evidence of skull fracture or incidental bony calvarial lesion. The visualized paranasal sinuses appear clear. No intraorbital abnormality is seen. On soft tissue window setting images; the lateral, third, and fourth ventricles are normal in size and position. Gallegos-white differentiation pattern is normal above and below the tentorium. There are is no evidence of intracranial hemorrhage. No mass, edema, infarction, or midline shift is seen. No extra-axial fluid collection is appreciated. There is extensive vascular calcification in the distal internal carotid and distal vertebral arteries bilaterally. Minimal generalized volume loss and small vessel changes are noted. IMPRESSION: Minimal of volume loss, moderate vascular calcification. Mild small vessel changes. No acute intracranial abnormality.. <Electronically signed by Mac Ramirez > 11/21/20 [id number]
--- NOTE | 2020-11-21 13:36 | REP ---
INDICATION: CVA. COMPARISON: Comparison portable chest x-ray 28 June 2020. TECHNIQUE: Portable upright AP chest radiograph. FINDINGS: The lungs are well inflated and free of infiltrate. Pleural angles are sharp. Heart size is normal. Pulmonary vasculature is not increased. There are mild degenerative changes in the thoracic spine. IMPRESSION: No active disease. <Electronically signed by Mac Ramirez > 11/21/20 [id number]
[2020-11-21 13:38] LABS: BLOOD UREA NITROGEN 16 MG/DL (7-18); CALCIUM LEVEL 8.4 MG/DL (8.8-10.2); CARBON DIOXIDE LEVEL 28 MEQ/L (21-32); CHLORIDE LEVEL 108 MEQ/L (98-107); CK-MB VALUE MASS < 1.0 NG/ML (<3.6); CPK CREATINE PHOSPHOKINASE 125 U/L (26-192); GLOMERULAR FILTRATION RATE > 60.0 (>45); GLUCOSE, FASTING 130 MG/DL (70-100); POTASSIUM SERUM 5.1 MEQ/L (3.5-5.1); SODIUM LEVEL 141 MEQ/L (136-145); TROPONIN I < 0.02 NG/ML (< 0.10)
[2020-11-21] MEDS ORDERED: CARVedilol 12.5 MG TAB PO ONE (14:00)
[2020-11-21] MEDS ORDERED: DICL1GEL3 TOP (14:13)
[2020-11-21] MEDS ORDERED: CARV25TA PO (14:13)
[2020-11-21] MEDS ORDERED: LYRI150C PO (14:13)
[2020-11-21] MEDS ORDERED: GLUCAGON INJ 1MG VIAL SC PRN (14:30)
[2020-11-21] MEDS ORDERED: PREGABALIN 75 MG CAP(LYRICA) PO PRN (14:30)
[2020-11-21] MEDS ORDERED: GLUCOSE 4GM CHEW TABLET PO PRN (14:30)
[2020-11-21] MEDS ORDERED: DEXTROSE 50% 50 ML SYRINGE IV PRN (14:30)
[2020-11-21] MEDS ORDERED: lisinopriL 5 MG TAB PO ONE (14:30)
[2020-11-21] MEDS ORDERED: ENOXAPARIN 40MG/0.4ML SYRINGE (J1650 PER 10MG) SC ONE (18:20)
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
--- NOTE | 2020-11-21 19:45 | ECGEPIP ---
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
[2020-11-21] MEDS ORDERED: ALPRAZolam 0.5 MG TAB PO SCH (21:00)
[2020-11-21] MEDS ORDERED: metFORMIN (GLUCOPHAGE) 1000 MG TABLET PO SCH (21:00)
[2020-11-21] MEDS ORDERED: HumaLOG INSULIN (NovoLOG) PER UNIT SC SCH (21:00)
[2020-11-21] MEDS ORDERED: ATORVASTATIN 20 MG TAB PO SCH (21:00)
[2020-11-21 22:15] VITALS: BP 142/76
[2020-11-21] MEDS: CARVedilol 12.5 MG TAB PO SCH (22:35)
[2020-11-21] MEDS: PREGABALIN 75 MG CAP(LYRICA) PO SCH (22:36)
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
[2020-11-21] MEDS: HYDROXYCHLOROQUINE 200 MG TAB PO SCH (23:22)
[2020-11-22 06:00] VITALS: BP 160/70
[2020-11-22 06:25] LABS: HEMATOCRIT 32.5 % (36.0-47.0); HEMOGLOBIN 9.9 g/dl (12.0-15.5); MEAN CORPUSCULAR HEMOGLOBIN 23.9 pg (27.0-33.0); MEAN CORPUSCULAR HGB CONC 30.5 g/dl (32.0-36.5); MEAN CORPUSCULAR VOLUME 78.5 fl (80.0-96.0); PLATELET COUNT, AUTOMATED 275 10^3/uL (150-450); RED BLOOD COUNT 4.14 10^6/uL (4.00-5.40); WHITE BLOOD COUNT 4.8 10^3/uL (4.0-10.0)
[2020-11-22 06:44] LABS: HEMOGLOBIN A1c 6.5 %
[2020-11-22 07:06] LABS: BLOOD UREA NITROGEN 12 MG/DL (7-18); CALCIUM LEVEL 9.4 MG/DL (8.8-10.2); CARBON DIOXIDE LEVEL 31 MEQ/L (21-32); CHLORIDE LEVEL 104 MEQ/L (98-107); CHOLESTEROL LEVEL 113 MG/DL (<200); CHOLESTEROL RISK RATIO 1.948 (<5); CREATININE FOR GFR 0.66 MG/DL (0.55-1.30); GLOMERULAR FILTRATION RATE > 60.0 (>45); GLUCOSE, FASTING 128 MG/DL (70-100); HDL CHOLESTEROL 58 MG/DL (>40); LDL CHOLESTEROL 43 MG/DL (<100); NON-HDL-C 55 MG/DL; POTASSIUM SERUM 4.2 MEQ/L (3.5-5.1); SODIUM LEVEL 140 MEQ/L (136-145); TRIGLYCERIDES LEVEL 59 MG/DL (<150)
[2020-11-22] MEDS ORDERED: FLUoxetine 20 MG CAP PO SCH (09:00)
[2020-11-22] MEDS ORDERED: lisinopriL 40 MG TAB PO SCH (09:00)
[2020-11-22] MEDS ORDERED: PANTOPRAZOLE 40MG TAB (PROTONIX) PO SCH (09:00)
[2020-11-22] MEDS ORDERED: VITAMIN D 1,000 INTERNATIONAL UNITS TABLET PO SCH (09:00)
[2020-11-22] MEDS ORDERED: ASPIRIN 81MG ENTERIC TABLET PO SCH (09:00)
[2020-11-22] MEDS ORDERED: CLOPIDOGREL 75 MG TAB PO SCH (09:00)
[2020-11-22] MEDS ORDERED: CETIRIZINE (ZyrTEC) 10 MG TAB PO SCH (09:00)
[2020-11-22] MEDS ORDERED: SITagliptin 50 MG TAB (JANUVIA) PO SCH (09:00)
[2020-11-22] MEDS: HumaLOG INSULIN (NovoLOG) PER UNIT SC SCH ×4 (09:43→17:18)
[2020-11-22] MEDS: PREGABALIN 75 MG CAP(LYRICA) PO SCH (09:53)
[2020-11-22] MEDS: HYDROXYCHLOROQUINE 200 MG TAB PO SCH (09:54)
[2020-11-22 09:57] VITALS: BP 152/78
[2020-11-22] MEDS: CARVedilol 12.5 MG TAB PO SCH (09:57)
[2020-11-22] MEDS ORDERED: ISOVUE-370 76% 100ML VIAL As Ordered ONE (10:11)
--- NOTE | 2020-11-22 10:50 | REP ---
INDICATION: multi vessel mod-severe stenosis, TIA. COMPARISON: Comparison is made with yesterday's MR angiography of the brain, 21 Nov 2020.. TECHNIQUE: CT contrast dose: 100 ml of intravenous Isovue 370. CT technique: Helical scanning is acquired. 2 mm axial images are reformatted. Maximal intensity projection and multiplanar re-formation images are generated along with 3-D surface rendered color imaging which is viewed rotational. FINDINGS: There is a focal atherosclerotic calcification in the proximal M1 segment of the right middle cerebral artery where yesterday's MR angiography demonstrates a web-like focal stenosis. This is felt to confirm stenosis of the proximal M1 segment of the right MCA. The left MCA is unremarkable. The anterior cerebral arteries are unremarkable. The A1 segments are normal and symmetric bilaterally. In general, the vertebrobasilar system displays a relatively small caliber. The right distal vertebral artery is quite small. There is bilateral distal vertebral artery vascular calcification. The calcification in the right distal vertebral artery is at the location where yesterday's MR angiography shows narrowing. There is actually more calcification in the distal vertebral artery on the left without significant narrowing seen. No basilar artery stenosis is appreciated. There is mild atherosclerotic irregularity in the posterior cerebral artery on the right without evidence of high-grade stenosis. The sagittal, straight, and sigmoid sinuses appear to enhance normally. 3D surface rendered images show no additional abnormality. IMPRESSION: Right middle cerebral artery, M1 segment focal stenosis is felt to be confirmed by the presence of an atherosclerotic calcification in this location. Similarly, there is calcification in the small distal vertebral artery on the right where yesterday's MR angiography shows narrowing. There is atherosclerotic irregularity of the right posterior cerebral artery. No other high-grade stenosis is seen. No occlusion is seen. In general, the posterior arterial supply is small in caliber. <Electronically signed by Mac Ramirez > 11/22/20 1049
[2020-11-22] MEDS ORDERED: CLOP75TA2 PO (13:23)
[2020-11-22] MEDS ORDERED: ASPI-551 PO (13:23)
[2020-11-22] MEDS ORDERED: ENOXAPARIN 40MG/0.4ML SYRINGE (J1650 PER 10MG) SC SCH (21:00)
--- NOTE | 2020-11-22 22:12 | DS.PDOC ---
Discharge Summary General Date of Admission November 21, 2020 at 13:45 Date of Discharge 11/22/20 Attending Physician: Angely Napoles MD Discharge Summary HISTORY OF PRESENT ILLNESS: 69-year-old female with history of CAD, MT, stent 3, hypertension, hyperlipidemia, type 2 diabetes was in her usual state of health until today when she was driving home around noon time when the police followed her because she was swerving patient complained of dizziness and generalized weakness but did not feel that the room was spinning. Before she went out to drive. She couldn't get her feet into her shoes at home. She has not had any changes in medications and not taking any ahtv-jdv-cokxkfa medication. She denied any diarrhea, decrease oral fluid intake, dehydration, vomiting at home. Patient said that she has had about a 10 pound weight loss over the past 3 months because of her gastroparesis but glucose level by EMS was 141, when she was seen by EMS. She had slight slurring her speech. She had no receptive aphasia. She was given 1 dose of aspirin 81 mg and was brought into the emergency room for further evaluation for possible CVA. EKG was sinus rhythm, ventricular rate of 66. CT of the head was negative for acute intracranial abnormality. MRI of the brain was ordered but was not completed. Hospitalist was asked to admit the patient for complaints of dizziness, slurred speech and generalized weakness r/o TIA vs. CVA HOSPITAL COURSE: Patient had no change in neurological status overnight. Neuro checks neg. MRI brain: Mild age-related changes. No acute abnormality. MRA brain: 1. Shelf-like focal stenosis of the right MCA proximal M1 segment with possible moderate or severe stenosis- Consider confirmation with CT angiogram, appears potentially artifactual, Moderate to severe proximal right vertebral artery V4 segment stenosis, Multifocal moderate peripheral MASTER OF CEREMONIES stenosis with Multifocal moderate right MASTER OF CEREMONIES stenosis. CTA brain: Right middle cerebral artery, M1 segment focal stenosis is felt to be confirmed by the presence of an atherosclerotic calcification in this location-Similarly, there is calcification in the small distal vertebral artery on the right where yesterday's MR angiography shows narrowing-There is atherosclerotic irregularity of the right posterior cerebral artery. No other high-grade stenosis is seen. No occlusion is seen. Results discussed with neurology solution design and analysis manager. Decision was made to start on plavix in addition to A and statin medications. Echocardiogram was done on 11/22/20 but can take several days to get results. Lipid panel unremarkable. PT: clear for independent living situation. Decision was made to discharge home and to have PCP follow up on results of echocardiogram on next appointment or later in the next several weeks. She has appointment on 11/23/20 with PCP and is instructed to take discharge instructions with her. At time of discharge, patient had no focal deficits, neurological concerns. PAST MEDICAL HISTORY: CAD, MT, stent 3, hypertension, hyperlipidemia, type 2 diabetes , obstructive sleep apnea on CPAP, gastroparesis, stress incontinence, anxiety PAST SURGICAL HISTORY: Hysterectomy, bilateral knee replacement last one was the right in 2019, spinal fusion, bilateral rotator cuff repair, colonoscopy, right carpal tunnel release, appendectomy, bladder lift, coronary artery stent 3 SOCIAL HISTORY: Karolina garcia lives alone, has a boyfriend who lives downstairs to her apartment. Denies any history of smoking, alcohol or recreational drug use. Retired. 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 She has no healthcare proxy FAMILY HISTORY: Unknown family history ALLERGIES: Please see below. DISCHARGE MEDICATIONS: Please see below. PHYSICAL EXAMINATION: VITAL SIGNS: See below GENERAL APPEARANCE: Awake, alert, oriented to person, place and time. No distress. No pallor, no icterus HEENT: Face is symmetric. Tongue is midline. Speech is fluent. No JVD, thyromegaly, cervical lymphadenopathy, moist mucous membranes, no stridor, carotid bruits CARDIOVASCULAR: Regular rate rhythm, S1, S2, no murmurs, rubs or gallops. No carotid bruit no pitting edema LUNGS: Air entry is equal bilaterally. No cyanosis, use of respiratory accessory muscles. Clear to auscultation. No wheezing, rales or rhonchi ABDOMEN: Positive bowel sounds, soft, nontender, nondistended. No rebound or guarding. No hepatosplenomegaly EXTREMITIES: No cyanosis, clubbing or pitting edema NEUROLOGICAL: Face is symmetric. Tongue is midline. Speech is fluent. No dysmetria on finger to nose testing. Extra muscles are intact. Pupils equally round, reactive to light and accommodation. Motor function is 5 out of 54 extremities. DTRs intact bilateral upper and lower extremities. No pronator drift PSYCH: Mood and affect appropriate LABORATORY DATA: See below. IMAGING: Echocardiogram 11/22/20: pending results, can take up to 48 hours to get results CTA brain: Right middle cerebral artery, M1 segment focal stenosis is felt to be confirmed by the presence of an atherosclerotic calcification in this location. Similarly, there is calcification in the small distal vertebral artery on the right where yesterday's MR angiography shows narrowing. There is a therosclerotic irregularity of the right posterior cerebral artery. No other high-grade stenosis is seen. No occlusion is seen. In general, the posterior arterial supply is small in caliber. MRI brain: Mild age-related changes. No acute abnormality. MRA brain: 1. Shelf-like focal stenosis of the right MCA proximal M1 segment with possible moderate or severe stenosis. Consider confirmation with CT angiogram, appears potentially artifactual. 2. Moderate to severe proximal right vertebral artery V4 segment stenosis. 3. Multifocal moderate peripheral MASTER OF CEREMONIES stenosis. Multifocal moderate right MASTER OF CEREMONIES stenosis. MICROBIOLOGY: Please see below. ASSESSMENT: 69-year-old female with history of CAD, MT, stent 3, hypertension, hyperlipidemia, type 2 diabetes admitted for further workup of TIA vs. CVA PLAN: Transient ischemic attack likely 2/2 to multiple areas of intracranial stenosis -resolved neurological changes, no neuro changes overnight -MRA/CTA head above -Will need to c/w medical management with plavix, ASA, statin -No need for PT/ST -Would recommend PCP to f/u echocardiogram as o/p, as results can take several days to return in hospital and patient is stable, has no further needs for inpatient services. CAD, MT, stent 3, -Resume on home meds -Advised to update regional psychiatric director on addition of plavix to regimen HTN -better controlled with home regimen HLD -lipid panel unremarkable -c/w statin DM type II -C/w home meds after d/c Anxiety -Stable and chronic DISPOSITION: Would please ask PCP to f/u echocardiogram on next appointment. Neurology discussed case in detail prior to discharg.e TIME SPENT ON DISCHARGE: 35 minutes. Vital Signs/I&Os Vital Signs Date Time Temp Pulse Resp B/P (MAP) Pulse Ox O2 Delivery O2 Flow Rate FiO2 11/22/20 09:57 68 152/78 11/22/20 06:00 97.8 18 97 Room Air I&O- Last 24 Hours up to 6 AM 11/22/20 06:00 Intake Total 200 ml Output Total 1200 ml Balance -1000 ml Laboratory Data Labs 24H Laboratory Tests 2 11/22/20 06:07: Nucleated Red Blood Cells % (auto) 0.0, Anion Gap 5L, Glomerular Filtration Rate > 60.0, Estimated Mean Plasma Glucose 140H, Hemoglobin A1c 6.5, Calcium Level 9.4, Triglycerides Level 59, Total Cholesterol 113, LDL Cholesterol 43, Non-HDL Cholesterol (LDL + VLDL) 55, Total HDL Cholesterol 58, Cholesterol/HDL Ratio 1.948, Thyroid Stimulating Hormone (TSH) 1.340 11/22/20 11:25: Bedside Glucose (Misc Panel) 126H 11/22/20 11:25: Lab Scanned Report Miscellaneous Lab 11/22/20 16:47: Bedside Glucose (Misc Panel) 163H CBC/BMP Laboratory Tests 11/22/20 06:07 FSBS Laboratory Tests Test 11/22/20 11:25 11/22/20 16:47 Range/Units Bedside Glucose (Misc Panel) 126 163 80-115 MG/DL Microbiology Microbiology 11/21/20 Respiratory Virus Panel (PCR) ([facility]) - Final, Complete Discharge Medications Scheduled Alprazolam (Xanax) 0.5 Mg Tablet, 0.5 MG PO QHS, (Reported) Aspirin (Aspirin EC) 81 Mg Tablet.dr, 81 MG PO DAILY Atorvastatin Calcium (Atorvastatin Calcium) 40 Mg Tablet, 40 MG PO QHS, (Reported) Carvedilol (Carvedilol) 25 Mg Tablet, 25 MG PO BID, (Reported) Cetirizine HCl (Cetirizine HCl) 10 Mg Tablet, 10 MG PO DAILY, (Reported) Cholecalciferol (Vitamin D3) (Vitamin D3) 1,000 Unit Tablet, 1,000 UNITS PO DAILY, (Reported) Clopidogrel Bisulfate (Clopidogrel) 75 Mg Tablet, 75 MG PO DAILY Esomeprazole Magnesium (Nexium) 40 Mg Capsule.dr, 40 MG PO DAILY, (Reported) Fluoxetine Hcl (Fluoxetine HCl) 20 Mg Capsule, 20 MG PO DAILY, (Reported) Hydrochlorothiazide (Hydrochlorothiazide) 25 Mg Tablet, 25 MG PO DAILY, (Reported) Hydroxychloroquine Sulfate (Hydroxychloroquine Sulfate) 200 Mg Tablet, 200 MG PO BID, (Reported) Insulin Glargine,Hum.rec.anlog (Basaglar Kwikpen U-100) 100 Unit/1 Ml Insuln.pen, 10 UNIT SC QHS, (Reported) Levomefolate/B6/B12/Algal Oil (Metanx Capsule) 1 Each Capsule, 1 CAP PO DAILY, (Reported) Lisinopril (Lisinopril) 40 Mg Tablet, 40 MG PO DAILY, (Reported) Metformin HCl (Metformin HCl) 1,000 Mg Tablet, 1,000 MG PO BID, (Reported) Pregabalin (Lyrica) 150 Mg Capsule, 150 MG PO BID, (Reported) Sitagliptin Phosphate (Januvia) 100 Mg Tablet, 100 MG PO DAILY, (Reported) Scheduled PRN Diclofenac Sodium (Diclofenac Sodium) 1% 100GM Gel..gram., 4 GRAM TOP QID PRN for PAIN, (Reported) APPLY TO PAINFUL AREAS Nitroglycerin (Nitrostat) 0.4 Mg Tab.subl, 0.4 MG SL NITRO PRN for CHEST PAIN, (Reported) Pregabalin (Lyrica) 150 Mg Capsule, 150 MG PO DAILY PRN for PAIN, (Reported) Allergies Coded Allergies: Penicillins (Verified Allergy, Intermediate, hives, 10/27/18) meperidine (Verified Allergy, Unknown, 10/27/18) morphine (Verified Adverse Reaction, Intermediate, "sick", 10/27/18) Angely Napoles MD November 22, 2020 22:12
--- NOTE | 2020-11-23 12:34 | ECHO ---
DATE OF PROCEDURE: 11/22/2020 Age: 69 Gender: Female Height: 152 cm Weight: 69 kg REFERRING PHYSICIAN: Nirali Steve MD INDICATION: Dizziness. MEASUREMENTS: IVS 1.3 cm LV 4.6 cm LVPW 1.3 cm LA 3.8 cm Aorta 3.0 cm Mitral E wave velocity 89 cm/s Mitral A wave 67 cm/s E prime septal 5.1 cm/s E prime lateral 8.8 cm/s FINDINGS: This study is of fair technical quality with somewhat challenging visualization. Underlying sinus rhythm. Left ventricle has normal size and normal systolic function, I estimate EF around 55% to 60%. Mild left ventricular hypertrophy is noted. Right ventricle is also normal size and systolic function. Both atria appear grossly normal. The aortic valve was poorly visualized, it appears at least mildly sclerotic, but I cannot comment much on its structure. There are also mild degenerative abnormalities of the mitral valve with mitral annular calcification, but mobility of leaflets is preserved. Tricuspid and pulmonic valves appear normal. No pericardial effusion is noted. Inferior vena cava was not well seen. The aortic root is normal. The aortic arch and abdominal aorta were not well visualized. Doppler interrogation reveals no significant aortic stenosis or insufficiency. There is trace mitral insufficiency and trace tricuspid insufficiency. Unfortunately, quality of TR jet was not sufficient to adequately estimate pulmonary artery pressure. Mitral inflow pattern and tissue Doppler imaging of the mitral annulus revealed likely grade 2 diastolic dysfunction. CONCLUSIONS: 1. Study is of fair technical quality, underlying sinus rhythm. 2. Normal LV size with mild LVH and preserved LV systolic function. Likely grade 2 diastolic dysfunction. 3. Aortic sclerosis, but no stenosis or insufficiency. 4. Trace mitral and tricuspid insufficiency. 5. Unable to estimate central venous pressure and pulmonary artery pressure. [facility]
== END 2020-11-22 18:47 | disposition home or self-care (01) | DRG 68 ==
LOC: M ED 11:48 → M ED INP 13:45 → M MSPAV 22:13
PROVIDERS: ADMIT General Practice; ATTEND Internal Medicine
DX: I66.01 Occlusion and stenosis of right middle cerebral artery (principal); I66.21 Occlusion and stenosis of right posterior cerebral artery; I65.01 Occlusion and stenosis of right vertebral artery; I25.10 Atherosclerotic heart disease of native coronary artery without angina pectoris; I25.2 Old myocardial infarction; Z95.2 Presence of prosthetic heart valve; I10 Essential (primary) hypertension; E11.43 Type 2 diabetes mellitus with diabetic autonomic (poly)neuropathy; E78.5 Hyperlipidemia, unspecified; G47.33 Obstructive sleep apnea (adult) (pediatric); F41.9 Anxiety disorder, unspecified; Z96.653 Presence of artificial knee joint, bilateral; Z79.899 Other long term (current) drug therapy; Z79.4 Long term (current) use of insulin; Z88.0 Allergy status to penicillin; Z88.5 Allergy status to narcotic agent; Z88.8 Allergy status to other drugs, medicaments and biological substances

== ENCOUNTER → 2021-01-12 | Outpatient (CLI) | payer MEDICARE, MEDICAID ==
[~2021-01-12] MED LIST changes: +ASPI-551 PO; +CARV25TA PO; +CLOP75TA2 PO; +DICL1GEL3 TOP
[2021-01-12 14:13] LABS: BASO # 0.1 10^3/uL (0.0-0.2); BASO % 1.2 % (0.0-1.0); EOS # 0.2 10^3/uL (0.0-0.5); EOS % 3.8 % (0.0-3.0); HEMATOCRIT 33.5 % (36.0-47.0); HEMOGLOBIN 10.2 g/dl (12.0-15.5); LYMPH # 1.2 10^3/uL (1.5-5.0); LYMPH % 24.3 % (24.0-44.0); MEAN CORPUSCULAR HEMOGLOBIN 24.5 pg (27.0-33.0); MEAN CORPUSCULAR HGB CONC 30.4 g/dl (32.0-36.5); MEAN CORPUSCULAR VOLUME 80.3 fl (80.0-96.0); MONO # 0.4 10^3/uL (0.0-0.8); MONO % 7.2 % (2.0-8.0); NEUTROPHILS # 3.2 10^3/uL (1.5-8.5); NEUTROPHILS % 63.3 % (36.0-66.0); PLATELET COUNT, AUTOMATED 276 10^3/uL (150-450); RED BLOOD COUNT 4.17 10^6/uL (4.00-5.40)
[2021-01-12 14:34] LABS: C REACTIVE PROTEIN QUANTITATIV 0.33 MG/DL (0.00-0.30); URIC ACID 3.3 MG/DL (2.6-6.0)
[2021-01-12 14:55] LABS: ERYTHROCYTE SEDIMENTATION RATE 35 mm/hr (0-30)
== END ==
LOC: M LAB 12:57
PROVIDERS: ATTEND Physician Assistant
DX: M25.561 Pain in right knee (principal)

== ENCOUNTER → 2021-02-09 | Outpatient (CLI) | payer MEDICARE, MEDICAID ==
--- NOTE | 2021-02-09 15:04 | REP ---
INDICATION: ARTIFICIAL RT KNEE JNT, EVAL FOR LOOSENING, ETC. COMPARISON: None. TECHNIQUE/RADIOTRACER AND DOSE: Following the intravenous administration of 22 mCi technetium 99 M MDP, patient's knees are imaged in the flow phase, immediate blood pool and delayed phase in various projections. FINDINGS: There is mild increased blood flow and blood pooling in the region of the right knee. Photopenic knee prostheses are noted bilaterally. There is diffuse increased uptake on the right, in the distal femur and proximal tibia adjacent to the prosthetic components. There is no increased uptake in the left osseous structures of the knee. IMPRESSION: Diffusely increased uptake in the distal femur and proximal tibia adjacent to the right knee prosthesis. I cannot exclude loosening or infection. <Electronically signed by Mor Gallegos > 02/09/21 1500
== END ==
LOC: M RAD 10:55
PROVIDERS: ATTEND Orthopaedic Surgery
DX: Z96.651 Presence of right artificial knee joint (principal)
CPT/HCPCS: 78315; A9503

== ENCOUNTER 2021-02-20 20:21 | Emergency (ER) | payer MEDICARE, MEDICAID ==
[~2021-02-20] VITALS: Ht 152.4 cm; Wt 68.1 kg
[2021-02-20] MEDS ORDERED: NITROGLYCERIN 0.4 MG SUBL TABLET SL PRN (21:25)
[2021-02-20] MEDS ORDERED: ASPIRIN 325 MG TAB PO ONE (21:25)
[2021-02-20 21:38] LABS: BASO # 0.1 10^3/uL (0.0-0.2); BASO % 0.7 % (0.0-1.0); EOS # 0.1 10^3/uL (0.0-0.5); EOS % 1.8 % (0.0-3.0); HEMATOCRIT 33.1 % (36.0-47.0); HEMOGLOBIN 10.3 g/dl (12.0-15.5); LYMPH % 25.9 % (24.0-44.0); MEAN CORPUSCULAR HEMOGLOBIN 24.9 pg (27.0-33.0); MEAN CORPUSCULAR HGB CONC 31.1 g/dl (32.0-36.5); MEAN CORPUSCULAR VOLUME 80.1 fl (80.0-96.0); MONO # 0.4 10^3/uL (0.0-0.8); NEUTROPHILS # 5.1 10^3/uL (1.5-8.5); NEUTROPHILS % 66.2 % (36.0-66.0); PLATELET COUNT, AUTOMATED 312 10^3/uL (150-450); RED BLOOD COUNT 4.13 10^6/uL (4.00-5.40); WHITE BLOOD COUNT 7.6 10^3/uL (4.0-10.0)
[2021-02-20 21:50] LABS: INR 1.04
[2021-02-20 22:04] LABS: ALBUMIN 3.7 GM/DL (3.2-5.2); ALT/SGPT 39 U/L (12-78); BILIRUBIN,DIRECT < 0.1 MG/DL (0.0-0.2); BILIRUBIN,TOTAL 0.2 MG/DL (0.2-1.0); BLOOD UREA NITROGEN 19 MG/DL (7-18); CALCIUM LEVEL 8.9 MG/DL (8.8-10.2); CARBON DIOXIDE LEVEL 25 MEQ/L (21-32); CHLORIDE LEVEL 107 MEQ/L (98-107); CK-MB VALUE MASS 1.5 NG/ML (<3.6); CPK CREATINE PHOSPHOKINASE 106 U/L (26-192); CREATININE FOR GFR 0.79 MG/DL (0.55-1.30); GLOMERULAR FILTRATION RATE > 60.0 (>45); GLUCOSE, FASTING 110 MG/DL (70-100); LIPASE 275 U/L (73-393); MB/CK RELATIVE INDEX 1.42 (< OR =4); POTASSIUM SERUM 4.5 MEQ/L (3.5-5.1); SODIUM LEVEL 141 MEQ/L (136-145); TOTAL PROTEIN 7.3 GM/DL (6.4-8.2); TROPONIN I < 0.02 NG/ML (< 0.10)
[2021-02-20 22:14] VITALS: BP 160/55
[2021-02-20 22:30] VITALS: BP 156/69
--- NOTE | 2021-02-20 22:56 | REPVR ---
PROCEDURE INFORMATION: Exam: XR Chest Exam date and time: 02/20/2021 9:21 PM Age: 70 years old Clinical indication: Pain; Other: Not specified; Additional info: Chest pain TECHNIQUE: Imaging protocol: XR of the chest. Views: 1 view. COMPARISON: [facility] CHEST X-RAY 11/21/2020 12:59 PM FINDINGS: LUNGS and PLEURAL SPACE: The lungs are symmetrically expanded. Lung volumes are low. Minimal atelectasis and/or scarring seen at the left lung base. Slightly coarsened reticular lung markings again noted may be secondary to chronic interstitial changes. No evidence of peribronchial thickening. There is no consolidation, pneumothorax, or pleural effusion. No evidence of pulmonary vascular redistribution or overt edema. MEDIASTINUM: There is no mediastinal shift or widening. CARDIAC SILHOUETTE: Cardiothoracic ratio is at the upper end of normal limits. BONY THORAX: No acute findings are seen. Degenerative changes of the shoulders and spine noted. IMPRESSION: No acute infiltrate. Other findings discussed above. Electronically signed by: Chandler Best On 02/20/2021 22:55:27 PM
--- NOTE | 2021-02-21 21:53 | ECGEPIP ---
[facility] - ED Test Date: 2021-02-20 Pat Name: BERTHA SMITH Department: Room: - Gender: Female Stage Manager: ER : 1950 Requested By: GM Mendiola Order Number: [id number] Reading MD: Dimas Manzanares Measurements Intervals [place] Rate: 69 P: 65 NH: 154 QRS: 23 QRSD: 76 T: 58 QT: 420 QTc: 450 Interpretive Statements Normal sinus rhythm BASELINE ARTIFACT AFFECTS INTERPRETATION SIMILAR TO 11/21/20 Electronically Signed on 02-21-2021 21:53:14 EDT by Dimas Manzanares
== END 2021-02-20 23:15 | disposition home or self-care (01) ==
LOC: M ED 20:21
DX: R07.9 Chest pain, unspecified (principal); I10 Essential (primary) hypertension; E78.5 Hyperlipidemia, unspecified; Z88.0 Allergy status to penicillin; Z88.6 Allergy status to analgesic agent; Z95.5 Presence of coronary angioplasty implant and graft

== ENCOUNTER 2021-04-18 18:36 | Emergency (ER) | payer MEDICARE, MEDICAID ==
[~2021-04-18] VITALS: Ht 152.4 cm; Wt 67.7 kg
[2021-04-18 19:42] LABS: BASO # 0.1 10^3/uL (0.0-0.2); EOS # 0.3 10^3/uL (0.0-0.5); EOS % 3.6 % (0.0-3.0); HEMATOCRIT 32.2 % (36.0-47.0); HEMOGLOBIN 9.8 g/dl (12.0-15.5); LYMPH # 1.8 10^3/uL (1.5-5.0); MEAN CORPUSCULAR HEMOGLOBIN 24.5 pg (27.0-33.0); MEAN CORPUSCULAR HGB CONC 30.4 g/dl (32.0-36.5); MEAN CORPUSCULAR VOLUME 80.5 fl (80.0-96.0); MONO # 0.4 10^3/uL (0.0-0.8); MONO % 6.4 % (2.0-8.0); NEUTROPHILS # 4.3 10^3/uL (1.5-8.5); NEUTROPHILS % 62.7 % (36.0-66.0); PLATELET COUNT, AUTOMATED 279 10^3/uL (150-450); WHITE BLOOD COUNT 6.9 10^3/uL (4.0-10.0)
[2021-04-18 20:15] LABS: ALBUMIN 3.3 GM/DL (3.2-5.2); ALT/SGPT 30 U/L (12-78); BILIRUBIN,DIRECT < 0.1 MG/DL (0.0-0.2); BILIRUBIN,TOTAL 0.2 MG/DL (0.2-1.0); BLOOD UREA NITROGEN 19 MG/DL (7-18); CALCIUM LEVEL 8.2 MG/DL (8.8-10.2); CARBON DIOXIDE LEVEL 25 MEQ/L (21-32); CHLORIDE LEVEL 106 MEQ/L (98-107); CK-MB VALUE MASS 1.4 NG/ML (<3.6); CPK CREATINE PHOSPHOKINASE 143 U/L (26-192); CREATININE FOR GFR 0.82 MG/DL (0.55-1.30); GLOMERULAR FILTRATION RATE > 60.0 (>45); GLUCOSE, FASTING 97 MG/DL (70-100); LIPASE 131 U/L (73-393); MB/CK RELATIVE INDEX 0.98 (< OR =4); POTASSIUM SERUM 4.3 MEQ/L (3.5-5.1); SODIUM LEVEL 144 MEQ/L (136-145); TOTAL PROTEIN 6.8 GM/DL (6.4-8.2); TROPONIN I < 0.02 NG/ML (< 0.10)
[2021-04-18 20:23] LABS: RSV AMPLIFICATION NEGATIVE (NEGATIVE)
--- NOTE | 2021-04-18 20:56 | REPVR ---
PROCEDURE INFORMATION: Exam: XR Chest Exam date and time: 04/18/2021 7:07 PM Age: 70 years old Clinical indication: Chest wall pain; Additional info: Chest pain TECHNIQUE: Imaging protocol: XR of the chest. Views: 1 view. COMPARISON: [facility] PORTABLE CHEST X-RAY 02/20/2021 9:09 PM FINDINGS: Lungs: Patchy bilateral infiltrates. Findings may suggest multifocal pneumonitis or acute interstitial edema of other etiology. Also noted is pulmonary vascular congestion which may indicate fluid overload. Pleural spaces: Unremarkable. No pleural effusion. No pneumothorax. Heart/Mediastinum: Unremarkable. No cardiomegaly. Bones/joints: Unremarkable. IMPRESSION: 1. Patchy bilateral infiltrates. Findings may suggest multifocal pneumonitis or acute interstitial edema of other etiology. 2. Also noted is pulmonary vascular congestion which may indicate fluid overload. Electronically signed by: Rudi Parra On 04/18/2021 20:56:46 PM
[2021-04-18] MEDS ORDERED: NITROGLYCERIN 0.4 MG SUBL TABLET SL STA (21:10)
[2021-04-18 21:19] VITALS: BP 209/87
[2021-04-18 21:35] LABS: NT-PRO BNP 327 PG/ML (<125)
[2021-04-18 22:48] VITALS: BP 180/90
--- NOTE | 2021-04-20 07:33 | ECGEPIP ---
[facility] - ED Test Date: 2021-04-18 Pat Name: BERTHA SMITH Department: Room: - Gender: Female Technical Support Specialist: MANDY : 1950 Requested By: LISA SHIPLEY Order Number: [id number] Reading MD: Mylene Ortega Measurements Intervals [place] Rate: 68 P: 60 NM: 164 QRS: 22 QRSD: 94 T: 8 QT: 420 QTc: 446 Interpretive Statements Normal sinus rhythm NSTTW abnormalities similar 02/20/21 Electronically Signed on 04-20-2021 7:33:17 EDT by Myelne Ortega
--- NOTE | 2021-04-20 10:16 | ED PDOC ---
Post-Departure Follow-Up radiology repor tfaxed vito Cartagena Sarah MD Apr 20, 2021 10:16
== END 2021-04-18 22:49 | disposition home or self-care (01) ==
LOC: M ED 18:36
DX: B34.9 Viral infection, unspecified (principal); I11.9 Hypertensive heart disease without heart failure; E11.9 Type 2 diabetes mellitus without complications; Z79.899 Other long term (current) drug therapy

== ENCOUNTER 2021-08-08 12:04 | Inpatient (IN) | payer MEDICARE, MEDICAID ==
[~2021-08-08] VITALS: Ht 152.4 cm; Wt 68.2 kg
[~2021-08-08 12:04] MED LIST changes: +FLUO-96 PO; -FLUO20CA20 PO
[2021-08-08 12:52] LABS: BASO % 0.4 % (0.0-1.0); EOS # 0.1 10^3/uL (0.0-0.5); EOS % 0.7 % (0.0-3.0); HEMATOCRIT 30.7 % (36.0-47.0); HEMOGLOBIN 9.6 g/dl (12.0-15.5); LYMPH # 1.1 10^3/uL (1.5-5.0); LYMPH % 13.1 % (24.0-44.0); MEAN CORPUSCULAR HEMOGLOBIN 24.9 pg (27.0-33.0); MEAN CORPUSCULAR HGB CONC 31.3 g/dl (32.0-36.5); MEAN CORPUSCULAR VOLUME 79.5 fl (80.0-96.0); MONO # 0.6 10^3/uL (0.0-0.8); MONO % 6.8 % (2.0-8.0); NEUTROPHILS # 6.5 10^3/uL (1.5-8.5); NEUTROPHILS % 78.6 % (36.0-66.0); PLATELET COUNT, AUTOMATED 262 10^3/uL (150-450); RED BLOOD COUNT 3.86 10^6/uL (4.00-5.40); WHITE BLOOD COUNT 8.3 10^3/uL (4.0-10.0)
[2021-08-08 13:32] LABS: OSMOLALITY SERUM 295 MOSM/KG (280-301)
[2021-08-08 13:34] LABS: ALT/SGPT 29 U/L (12-78); BILIRUBIN,DIRECT < 0.1 MG/DL (0.0-0.2); BILIRUBIN,TOTAL < 0.1 MG/DL (0.2-1.0); BLOOD UREA NITROGEN 25 MG/DL (7-18); CALCIUM LEVEL 7.9 MG/DL (8.8-10.2); CARBON DIOXIDE LEVEL 21 MEQ/L (21-32); CHLORIDE LEVEL 111 MEQ/L (98-107); CREATININE FOR GFR 1.68 MG/DL (0.55-1.30); GLOMERULAR FILTRATION RATE 32.3 (>45); GLUCOSE, FASTING 152 MG/DL (70-100); POTASSIUM SERUM 4.9 MEQ/L (3.5-5.1); SODIUM LEVEL 140 MEQ/L (136-145); TOTAL PROTEIN 5.9 GM/DL (6.4-8.2)
[2021-08-08] MEDS ORDERED: NS 500 ML IV ONE (13:40)
[2021-08-08] MEDS ORDERED: ACETAMINOPHEN TAB 650MG DOSE (2X325MG) PO PRN (16:20)
[2021-08-08] MEDS ORDERED: MOM 30ML SUSPENSION UDC PO PRN (16:20)
[2021-08-08] MEDS ORDERED: MAALOX 30 ML SUSP *UDC PO PRN (16:20)
[2021-08-08] MEDS ORDERED: NORV5TAB PO (16:47)
[2021-08-08] MEDS ORDERED: HOME MED LIST COMPLETE! XX SCH (16:50)
[2021-08-08 17:26] LABS: CHOLESTEROL LEVEL 108 MG/DL (<200); CHOLESTEROL RISK RATIO 1.963 (<5); HDL CHOLESTEROL 55 MG/DL (>40); LDL CHOLESTEROL 39 MG/DL (<100); NON-HDL-C 53 MG/DL; TRIGLYCERIDES LEVEL 71 MG/DL (<150)
[2021-08-08] MEDS: HumaLOG INSULIN (NovoLOG) PER UNIT SC SCH ×2 (17:30→21:00)
[2021-08-08] MEDS ORDERED: DEXTROSE 50% 50 ML SYRINGE IV PRN (18:15)
[2021-08-08] MEDS ORDERED: GLUCAGON INJ 1MG VIAL SC PRN (18:15)
[2021-08-08] MEDS ORDERED: GLUCOSE 4GM CHEW TABLET PO PRN (18:15)
[2021-08-08] MEDS: NS 1,000 ML IV SCH (18:40)
[2021-08-08 22:05] VITALS: BP 138/63
[2021-08-08] MEDS: HEPARIN SOD (PORCINE) 5000UNITS/ML 1ML VIAL/SYRINGE SC SCH (22:34)
[2021-08-08] MEDS: DOCUSATE SODIUM 100MG CAPSULE PO SCH (22:35)
[2021-08-08] MEDS: ATORVASTATIN 20 MG TAB PO SCH (22:35)
[2021-08-08] MEDS: CARVedilol 12.5 MG TAB PO SCH (22:35)
[2021-08-08] MEDS: PREGABALIN 75 MG CAP(LYRICA) PO SCH (22:36)
[2021-08-08] MEDS: amLODIPine 5 MG TAB PO SCH (22:36)
[2021-08-09] VITALS: BP 128/61
[2021-08-09 04:00] VITALS: BP 143/67
[2021-08-09 05:13] LABS: BASO % 0.5 % (0.0-1.0); EOS # 0.1 10^3/uL (0.0-0.5); HEMATOCRIT 29.3 % (36.0-47.0); LYMPH # 1.2 10^3/uL (1.5-5.0); LYMPH % 19.6 % (24.0-44.0); MEAN CORPUSCULAR HEMOGLOBIN 24.9 pg (27.0-33.0); MEAN CORPUSCULAR HGB CONC 30.7 g/dl (32.0-36.5); MEAN CORPUSCULAR VOLUME 81.2 fl (80.0-96.0); MONO # 0.5 10^3/uL (0.0-0.8); MONO % 7.9 % (2.0-8.0); NEUTROPHILS # 4.3 10^3/uL (1.5-8.5); NEUTROPHILS % 70.7 % (36.0-66.0); PLATELET COUNT, AUTOMATED 235 10^3/uL (150-450); RED BLOOD COUNT 3.61 10^6/uL (4.00-5.40); WHITE BLOOD COUNT 6.1 10^3/uL (4.0-10.0)
[2021-08-09 05:29] LABS: CALCIUM LEVEL 7.4 MG/DL (8.8-10.2); CREATININE FOR GFR 1.59 MG/DL (0.55-1.30); GLOMERULAR FILTRATION RATE 34.4 (>45); POTASSIUM SERUM 4.7 MEQ/L (3.5-5.1)
[2021-08-09] MEDS: NS 1,000 ML IV SCH (07:07)
[2021-08-09 07:52] VITALS: BP 144/65
[2021-08-09] MEDS: PREGABALIN 75 MG CAP(LYRICA) PO SCH ×2 (08:08→20:03)
[2021-08-09] MEDS: DOCUSATE SODIUM 100MG CAPSULE PO SCH ×2 (08:08→20:03)
[2021-08-09] MEDS: VITAMIN D 1,000 INTERNATIONAL UNITS TABLET PO SCH (08:08)
[2021-08-09] MEDS: SITagliptin 50 MG TAB (JANUVIA) PO SCH (08:08)
[2021-08-09] MEDS: ASPIRIN 81MG ENTERIC TABLET PO SCH (08:08)
[2021-08-09] MEDS: CARVedilol 12.5 MG TAB PO SCH ×2 (08:08→20:02)
[2021-08-09] MEDS: HumaLOG INSULIN (NovoLOG) PER UNIT SC SCH ×4 (08:08→19:58)
[2021-08-09] MEDS: FLUoxetine 20 MG CAP PO SCH (08:09)
[2021-08-09] MEDS: PANTOPRAZOLE 40MG TAB (PROTONIX) PO SCH (08:09)
[2021-08-09] MEDS: HEPARIN SOD (PORCINE) 5000UNITS/ML 1ML VIAL/SYRINGE SC SCH ×2 (09:05→20:03)
[2021-08-09 11:48] VITALS: BP 143/65
[2021-08-09 16:03] VITALS: BP 164/70
[2021-08-09 20:00] VITALS: BP 153/67
[2021-08-09] MEDS: amLODIPine 5 MG TAB PO SCH (20:02)
[2021-08-09] MEDS: ATORVASTATIN 20 MG TAB PO SCH (20:03)
[2021-08-10 01:02] VITALS: BP 136/68
[2021-08-10 04:07] LABS: BASO % 0.7 % (0.0-1.0); EOS # 0.1 10^3/uL (0.0-0.5); EOS % 1.6 % (0.0-3.0); HEMATOCRIT 31.2 % (36.0-47.0); HEMOGLOBIN 9.7 g/dl (12.0-15.5); LYMPH # 1.3 10^3/uL (1.5-5.0); LYMPH % 20.4 % (24.0-44.0); MEAN CORPUSCULAR HEMOGLOBIN 24.7 pg (27.0-33.0); MEAN CORPUSCULAR HGB CONC 31.1 g/dl (32.0-36.5); MEAN CORPUSCULAR VOLUME 79.4 fl (80.0-96.0); MONO # 0.4 10^3/uL (0.0-0.8); MONO % 6.7 % (2.0-8.0); NEUTROPHILS # 4.3 10^3/uL (1.5-8.5); NEUTROPHILS % 70.4 % (36.0-66.0); PLATELET COUNT, AUTOMATED 231 10^3/uL (150-450); RED BLOOD COUNT 3.93 10^6/uL (4.00-5.40); WHITE BLOOD COUNT 6.1 10^3/uL (4.0-10.0)
[2021-08-10 04:27] LABS: CALCIUM LEVEL 7.9 MG/DL (8.8-10.2); CREATININE FOR GFR 1.16 MG/DL (0.55-1.30); GLOMERULAR FILTRATION RATE 49.5 (>45); POTASSIUM SERUM 4.3 MEQ/L (3.5-5.1)
[2021-08-10 04:36] VITALS: BP 140/68
[2021-08-10 06:45] VITALS: BP 164/77
[2021-08-10] MEDS: HumaLOG INSULIN (NovoLOG) PER UNIT SC SCH (09:06)
[2021-08-10] MEDS: HEPARIN SOD (PORCINE) 5000UNITS/ML 1ML VIAL/SYRINGE SC SCH (09:06)
[2021-08-10] MEDS: DOCUSATE SODIUM 100MG CAPSULE PO SCH (09:07)
[2021-08-10 09:08] VITALS: BP 159/76
[2021-08-10] MEDS: CARVedilol 12.5 MG TAB PO SCH (09:08)
[2021-08-10] MEDS: FLUoxetine 20 MG CAP PO SCH (09:09)
[2021-08-10] MEDS: PANTOPRAZOLE 40MG TAB (PROTONIX) PO SCH (09:09)
[2021-08-10] MEDS: ASPIRIN 81MG ENTERIC TABLET PO SCH (09:09)
[2021-08-10] MEDS: SITagliptin 50 MG TAB (JANUVIA) PO SCH (09:10)
[2021-08-10] MEDS: PREGABALIN 75 MG CAP(LYRICA) PO SCH (09:10)
[2021-08-10] MEDS: VITAMIN D 1,000 INTERNATIONAL UNITS TABLET PO SCH (09:10)
[2021-08-10] MEDS ORDERED: AMLO1TAB25 PO (11:15)
[2021-08-10] MEDS ORDERED: LIPI80TA PO (11:15)
== END 2021-08-10 12:20 | disposition home or self-care (01) | DRG 300 ==
LOC: M ED 12:04 → EDBD 12:04 → M ED INP 16:14 → M PCU 22:10 → M MS5PR 08-10 06:31
PROVIDERS: ADMIT Internal Medicine; ATTEND Internal Medicine
DX: E11.59 Type 2 diabetes mellitus with other circulatory complications (principal); N17.9 Acute kidney failure, unspecified; I65.21 Occlusion and stenosis of right carotid artery; G45.9 Transient cerebral ischemic attack, unspecified; I10 Essential (primary) hypertension; I25.10 Atherosclerotic heart disease of native coronary artery without angina pectoris; E78.5 Hyperlipidemia, unspecified; G47.33 Obstructive sleep apnea (adult) (pediatric); I25.2 Old myocardial infarction; Z95.2 Presence of prosthetic heart valve; F41.9 Anxiety disorder, unspecified; Z79.4 Long term (current) use of insulin; Z79.899 Other long term (current) drug therapy; Z79.82 Long term (current) use of aspirin; Z88.0 Allergy status to penicillin; Z88.8 Allergy status to other drugs, medicaments and biological substances

== ENCOUNTER 2021-11-02 12:27 | Emergency (ER) | payer MEDICARE, MEDICAID ==
[~2021-11-02] VITALS: Ht 147.3 cm; Wt 68.2 kg
[~2021-11-02 12:27] MED LIST changes: +AMLO1TAB25 PO; -D31000TA2 PO; +HYDR-3490; +LISI40TA4; +NORV5TAB PO; +VITA100093 PO
[2021-11-02 13:23] LABS: BASO # 0.1 10^3/uL (0.0-0.2); BASO % 0.8 % (0.0-1.0); EOS # 0.2 10^3/uL (0.0-0.5); EOS % 2.9 % (0.0-3.0); HEMOGLOBIN 10.1 g/dl (12.0-15.5); LYMPH # 1.5 10^3/uL (1.5-5.0); LYMPH % 23.7 % (24.0-44.0); MEAN CORPUSCULAR HEMOGLOBIN 26.5 pg (27.0-33.0); MEAN CORPUSCULAR HGB CONC 31.6 g/dl (32.0-36.5); MONO # 0.4 10^3/uL (0.0-0.8); MONO % 5.7 % (2.0-8.0); NEUTROPHILS # 4.1 10^3/uL (1.5-8.5); NEUTROPHILS % 66.7 % (36.0-66.0); PLATELET COUNT, AUTOMATED 233 10^3/uL (150-450); RED BLOOD COUNT 3.81 10^6/uL (4.00-5.40); WHITE BLOOD COUNT 6.2 10^3/uL (4.0-10.0)
[2021-11-02 13:58] LABS: ALBUMIN 3.5 GM/DL (3.2-5.2); ALT/SGPT 32 U/L (12-78); BILIRUBIN,DIRECT 0.1 MG/DL (0.0-0.2); BILIRUBIN,TOTAL 0.3 MG/DL (0.2-1.0); BLOOD UREA NITROGEN 12 MG/DL (7-18); CARBON DIOXIDE LEVEL 27 MEQ/L (21-32); CHLORIDE LEVEL 108 MEQ/L (98-107); CREATININE FOR GFR 0.73 MG/DL (0.55-1.30); GLOMERULAR FILTRATION RATE > 60.0 (>45); GLUCOSE, FASTING 107 MG/DL (70-100); LIPASE 120 U/L (73-393); POTASSIUM SERUM 4.1 MEQ/L (3.5-5.1); SODIUM LEVEL 142 MEQ/L (136-145); TOTAL PROTEIN 6.3 GM/DL (6.4-8.2)
[2021-11-02 15:00] VITALS: BP 124/62
== END 2021-11-02 15:10 | disposition home or self-care (01) ==
LOC: M ED 12:27 → EDBD 12:27 → M ED 15:10
DX: R07.9 Chest pain, unspecified (principal); R94.31 Abnormal electrocardiogram [ECG] [EKG]; E11.9 Type 2 diabetes mellitus without complications; I10 Essential (primary) hypertension; E78.5 Hyperlipidemia, unspecified; Z95.5 Presence of coronary angioplasty implant and graft; Z86.79 Personal history of other diseases of the circulatory system; Z86.73 Personal history of transient ischemic attack (TIA), and cerebral infarction without residual deficits; Z88.0 Allergy status to penicillin

== ENCOUNTER → 2021-11-09 | Outpatient (CLI) | payer MEDICARE, MEDICAID, OTHER | LOC: M LABSMTC 09:28 | PROVIDERS: ATTEND Anesthesiology | DX: Z01.812 Encounter for preprocedural laboratory examination (principal) ==

== ENCOUNTER 2021-11-14 06:38 | Day surgery (SDC) | payer MEDICARE, MEDICAID ==
[~2021-11-14] VITALS: Ht 152.4 cm; Wt 68.0 kg
[~2021-11-14 06:38] MED LIST changes: +NS 1,000 ML IV ONE
[2021-11-14] MEDS ORDERED: LIDOCAINE 2% 100MG/5ML SDV (FOR ANES.) As Ordered ONE (07:02)
[2021-11-14] MEDS ORDERED: propofoL 200 MG/20 ML VIAL As Ordered ONE (07:02)
[2021-11-14] MEDS ORDERED: fentaNYL 100 MCG/2 ML INJECTION As Ordered ONE (07:02)
[2021-11-14 08:15] VITALS: BP 154/70
== END 2021-11-14 08:21 | disposition home or self-care (01) ==
LOC: M OPP 06:38
PROVIDERS: ATTEND Internal Medicine Gastroenterology
DX: K22.89 Other specified disease of esophagus (principal); K29.70 Gastritis, unspecified, without bleeding; K31.84 Gastroparesis; Z80.0 Family history of malignant neoplasm of digestive organs; Z79.02 Long term (current) use of antithrombotics/antiplatelets; Z79.4 Long term (current) use of insulin; Z79.82 Long term (current) use of aspirin; Z88.0 Allergy status to penicillin; Z88.5 Allergy status to narcotic agent; Z88.8 Allergy status to other drugs, medicaments and biological substances; G47.33 Obstructive sleep apnea (adult) (pediatric); Z99.89 Dependence on other enabling machines and devices; Z86.74 Personal history of sudden cardiac arrest; Z95.5 Presence of coronary angioplasty implant and graft
CPT/HCPCS: 43239; 88305; J3010

== ENCOUNTER → 2021-12-05 | Outpatient (CLI) | payer MEDICARE, MEDICAID ==
[~2021-12-05] MED LIST changes: -NS 1,000 ML IV ONE
[2021-12-05 10:17] LABS: HEMOGLOBIN A1c 6.7 %
[2021-12-05 10:49] LABS: CREATININE, URINE 83.3 MG/DL; MALB URINE SIEMENS 7.9 MG/L; MAU/CREAT RATIO 9.4 MCG/MG (0.0-30.0)
== END ==
LOC: M LAB 08:51
PROVIDERS: ATTEND Physician Assistant
DX: E11.65 Type 2 diabetes mellitus with hyperglycemia (principal); Z79.4 Long term (current) use of insulin

== ENCOUNTER → 2022-01-26 | Outpatient (CLI) | payer MEDICARE, MEDICAID ==
[~2022-01-26] MED LIST changes: +BASA100I
== END ==
LOC: M RAD 07:43
PROVIDERS: ATTEND Internal Medicine Gastroenterology
DX: R11.2 Nausea with vomiting, unspecified (principal)
CPT/HCPCS: 78264; A9541

== ENCOUNTER → 2022-02-02 | Outpatient (CLI) | payer MEDICARE, MEDICAID ==
[2022-02-02 09:40] LABS: BASO # 0.1 10^3/uL (0.0-0.2); BASO % 0.6 % (0.0-1.0); EOS # 0.1 10^3/uL (0.0-0.5); EOS % 0.6 % (0.0-3.0); HEMATOCRIT 39.1 % (36.0-47.0); HEMOGLOBIN 12.6 g/dl (12.0-15.5); LYMPH # 1.7 10^3/uL (1.5-5.0); LYMPH % 20.6 % (24.0-44.0); MEAN CORPUSCULAR HEMOGLOBIN 27.6 pg (27.0-33.0); MEAN CORPUSCULAR HGB CONC 32.2 g/dl (32.0-36.5); MEAN CORPUSCULAR VOLUME 85.6 fl (80.0-96.0); MONO # 0.5 10^3/uL (0.0-0.8); MONO % 5.5 % (2.0-8.0); NEUTROPHILS % 71.6 % (36.0-66.0); PLATELET COUNT, AUTOMATED 246 10^3/uL (150-450); RED BLOOD COUNT 4.57 10^6/uL (4.00-5.40); WHITE BLOOD COUNT 8.3 10^3/uL (4.0-10.0)
[2022-02-02 10:10] LABS: BLOOD UREA NITROGEN 17 MG/DL (7-18); CREATININE FOR GFR 0.68 MG/DL (0.55-1.30); FERRITIN 155 NG/ML (8-252); GLOMERULAR FILTRATION RATE > 60.0 (>45); IRON (FE) 70 UG/DL (50-170); PERCENT SATURATION 23.6 % (13.2-45.0); TOTAL IRON BINDING CAPACITY 296 UG/DL (250-450)
[2022-02-02 10:22] LABS: VITAMIN B12 LEVEL 1712 PG/ML
[2022-02-02 10:23] LABS: FOLATE > 24.0 NG/ML
== END ==
LOC: M LAB 08:42
PROVIDERS: ATTEND Internal Medicine Gastroenterology
DX: D50.9 Iron deficiency anemia, unspecified (principal)

== ENCOUNTER → 2022-02-05 | Outpatient (CLI) | payer MEDICARE, MEDICAID | LOC: M LABSMTC 11:14 | PROVIDERS: ATTEND Anesthesiology | DX: Z01.818 Encounter for other preprocedural examination (principal); Z11.52 Encounter for screening for COVID-19 ==

== ENCOUNTER 2022-02-09 06:51 | Day surgery (SDC) | payer MEDICARE, MEDICAID ==
[~2022-02-09] VITALS: Ht 147.3 cm; Wt 68.9 kg
[~2022-02-09 06:51] MED LIST changes: +NS 1,000 ML IV ONE
[2022-02-09] MEDS ORDERED: propofoL 200 MG/20 ML VIAL As Ordered ONE ×2 (07:47→07:56)
[2022-02-09 08:30] VITALS: BP 148/67
== END 2022-02-09 08:40 | disposition home or self-care (01) ==
LOC: M OPP 06:51
PROVIDERS: ATTEND Internal Medicine Gastroenterology
DX: K63.5 Polyp of colon (principal); K63.89 Other specified diseases of intestine; K64.8 Other hemorrhoids; E11.9 Type 2 diabetes mellitus without complications; G47.30 Sleep apnea, unspecified; K31.84 Gastroparesis; N39.498 Other specified urinary incontinence; M13.89 Other specified arthritis, multiple sites; I25.119 Atherosclerotic heart disease of native coronary artery with unspecified angina pectoris; I25.2 Old myocardial infarction; I10 Essential (primary) hypertension; D50.9 Iron deficiency anemia, unspecified; Z79.1 Long term (current) use of non-steroidal anti-inflammatories (NSAID); Z79.4 Long term (current) use of insulin; Z79.02 Long term (current) use of antithrombotics/antiplatelets; Z79.51 Long term (current) use of inhaled steroids; Z79.52 Long term (current) use of systemic steroids; Z79.82 Long term (current) use of aspirin; Z79.899 Other long term (current) drug therapy; Z88.0 Allergy status to penicillin; Z88.5 Allergy status to narcotic agent; Z88.8 Allergy status to other drugs, medicaments and biological substances; Z80.0 Family history of malignant neoplasm of digestive organs; Z95.5 Presence of coronary angioplasty implant and graft; Z86.73 Personal history of transient ischemic attack (TIA), and cerebral infarction without residual deficits

== ENCOUNTER → 2022-06-01 | Outpatient (CLI) | payer MEDICARE, MEDICAID ==
[~2022-06-01] MED LIST changes: +CLOP75TA99 PO; -NS 1,000 ML IV ONE; -PLAV1TAB2 PO
[2022-06-01 09:44] LABS: HEMATOCRIT 36.1 % (36.0-47.0); HEMOGLOBIN 11.4 g/dl (12.0-15.5); MEAN CORPUSCULAR HEMOGLOBIN 27.3 pg (27.0-33.0); MEAN CORPUSCULAR HGB CONC 31.6 g/dl (32.0-36.5); MEAN CORPUSCULAR VOLUME 86.4 fl (80.0-96.0); PLATELET COUNT, AUTOMATED 258 10^3/uL (150-450); RED BLOOD COUNT 4.18 10^6/uL (4.00-5.40); WHITE BLOOD COUNT 5.4 10^3/uL (4.0-10.0)
[2022-06-01 10:22] LABS: BLOOD UREA NITROGEN 10 MG/DL (7-18); CARBON DIOXIDE LEVEL 28 MEQ/L (21-32); CHLORIDE LEVEL 106 MEQ/L (98-107); CREATININE FOR GFR 0.71 MG/DL (0.55-1.30); GLOMERULAR FILTRATION RATE > 60.0 (>45); GLUCOSE, FASTING 121 MG/DL (70-100); POTASSIUM SERUM 4.2 MEQ/L (3.5-5.1); SODIUM LEVEL 141 MEQ/L (136-145)
== END ==
LOC: M LAB 08:46
PROVIDERS: ATTEND Nurse Practitioner Family
DX: D64.9 Anemia, unspecified (principal)

== ENCOUNTER → 2022-07-01 | Outpatient (CLI) | payer MEDICARE, MEDICAID ==
[2022-07-01 11:30] LABS: HEMOGLOBIN A1c 6.3 % (4.0-6.0)
== END ==
LOC: M LAB 10:29
PROVIDERS: ATTEND Physician Assistant
DX: E11.65 Type 2 diabetes mellitus with hyperglycemia (principal); Z79.4 Long term (current) use of insulin

== ENCOUNTER → 2022-07-01 | Outpatient (CLI) | payer MEDICARE, MEDICAID | LOC: M RAD 10:26 | PROVIDERS: ATTEND Nurse Practitioner Adult Health | DX: R91.8 Other nonspecific abnormal finding of lung field (principal); Z79.899 Other long term (current) drug therapy ==

== ENCOUNTER → 2022-08-21 | Outpatient (CLI) | payer MEDICARE, MEDICAID ==
[~2022-08-21] MED LIST changes: +METHACHOLINE KIT INH ONE
== END ==
LOC: M CARPUL 10:45
PROVIDERS: ATTEND Nurse Practitioner Adult Health
DX: R06.02 Shortness of breath (principal)
CPT/HCPCS: 94070; 95070; J7674

== ENCOUNTER → 2022-11-05 | Outpatient (CLI) | payer MEDICARE, MEDICAID ==
[~2022-11-05] MED LIST changes: -METHACHOLINE KIT INH ONE
[2022-11-05 16:57] LABS: FOLATE > 24.0 NG/ML (>5.4)
[2022-11-05 17:00] LABS: VITAMIN B12 LEVEL > 2000 PG/ML (211-911)
== END ==
LOC: M LAB 15:08
PROVIDERS: ATTEND Psychiatry & Neurology Neurology
DX: G62.9 Polyneuropathy, unspecified (principal); E53.8 Deficiency of other specified B group vitamins

== ENCOUNTER → 2022-11-13 | Outpatient (CLI) | payer MEDICARE, MEDICAID | LOC: M WHC 14:07 | PROVIDERS: ATTEND Advanced Practice Midwife | DX: Z12.31 Encounter for screening mammogram for malignant neoplasm of breast (principal) ==

== ENCOUNTER → 2023-02-18 | Outpatient (CLI) | payer MEDICARE, MEDICAID ==
[~2023-02-18] MED LIST changes: +ALBU8.5H INH; +ASPI-161 PO; +ATOR80TA59 PO; +CLOB5CR TOP; -HYDR200T3 PO; +HYDR200T46 PO; +MIRA1POW3 PO; +TRUL0.5I SC; +VALT1TAB PO; +ZOVI5OIN8 TOP
[2023-02-18 14:26] LABS: BASO # 0.1 10^3/uL (0.0-0.2); BASO % 1.2 % (0.0-1.0); EOS # 0.3 10^3/uL (0.0-0.5); EOS % 3.6 % (0.0-3.0); HEMOGLOBIN 12.4 g/dl (12.0-15.5); LYMPH # 1.6 10^3/uL (1.5-5.0); LYMPH % 21.1 % (24.0-44.0); MEAN CORPUSCULAR HEMOGLOBIN 27.6 pg (27.0-33.0); MEAN CORPUSCULAR HGB CONC 31.8 g/dl (32.0-36.5); MEAN CORPUSCULAR VOLUME 86.9 fl (80.0-96.0); MONO # 0.4 10^3/uL (0.0-0.8); MONO % 4.5 % (2.0-8.0); NEUTROPHILS # 5.4 10^3/uL (1.5-8.5); NEUTROPHILS % 69.3 % (36.0-66.0); PLATELET COUNT, AUTOMATED 286 10^3/uL (150-450); RED BLOOD COUNT 4.49 10^6/uL (4.00-5.40); WHITE BLOOD COUNT 7.7 10^3/uL (4.0-10.0)
[2023-02-18 14:52] LABS: ALBUMIN 4.1 G/DL (3.2-5.2); ALKALINE PHOSPHATASE 88 U/L (46-116); ALT/SGPT 33 U/L (7.0-40); AST/SGOT 13 U/L (<34); BILIRUBIN,TOTAL 0.5 MG/DL (0.3-1.2); BLOOD UREA NITROGEN 13 MG/DL (9-23); CALCIUM LEVEL 9.2 MG/DL (8.3-10.6); CARBON DIOXIDE LEVEL 27 MMOL/L (20-31); CHLORIDE LEVEL 105 MMOL/L (98-107); CREATININE FOR GFR 0.66 MG/DL (0.55-1.30); GLOMERULAR FILTRATION RATE > 60.0 (>39); GLUCOSE, FASTING 129 MG/DL (74-106); POTASSIUM SERUM 4.6 MMOL/L (3.5-5.1); SODIUM LEVEL 140 MMOL/L (136-145); TOTAL PROTEIN 6.8 G/DL (5.7-8.2)
[2023-02-18 14:53] LABS: ERYTHROCYTE SEDIMENTATION RATE 25 mm/hr (0-30)
== END ==
LOC: M LAB 14:03
PROVIDERS: ATTEND Family Medicine
DX: M05.79 Rheumatoid arthritis with rheumatoid factor of multiple sites without organ or systems involvement (principal)

== ENCOUNTER 2023-02-20 13:17 | Observation (INO) | payer MEDICARE, MEDICAID ==
[~2023-02-20] VITALS: Ht 148.6 cm; Wt 64.5 kg
[~2023-02-20 13:17] MED LIST changes: -ALBU8.5H INH; -ASPI-161 PO; -ATOR80TA59 PO; -CLOB5CR TOP; +DICL100G10 TOP; -DICL1GEL3 TOP; -MIRA1POW3 PO; -TRUL0.5I SC; -VALT1TAB PO; -ZOVI5OIN8 TOP
[2023-02-20 15:21] LABS: BASO # 0.1 10^3/uL (0.0-0.2); BASO % 0.8 % (0.0-1.0); EOS # 0.2 10^3/uL (0.0-0.5); EOS % 3.2 % (0.0-3.0); HEMATOCRIT 38.7 % (36.0-47.0); HEMOGLOBIN 12.2 g/dl (12.0-15.5); LYMPH # 1.6 10^3/uL (1.5-5.0); LYMPH % 21.3 % (24.0-44.0); MEAN CORPUSCULAR HEMOGLOBIN 27.7 pg (27.0-33.0); MEAN CORPUSCULAR HGB CONC 31.5 g/dl (32.0-36.5); MONO # 0.4 10^3/uL (0.0-0.8); MONO % 5.8 % (2.0-8.0); NEUTROPHILS # 5.1 10^3/uL (1.5-8.5); NEUTROPHILS % 68.8 % (36.0-66.0); PLATELET COUNT, AUTOMATED 265 10^3/uL (150-450); WHITE BLOOD COUNT 7.4 10^3/uL (4.0-10.0)
[2023-02-20] MEDS ORDERED: ISOVUE-370 76% 100ML VIAL As Ordered ONE (16:03)
[2023-02-20 16:20] LABS: ALBUMIN 4.1 G/DL (3.2-5.2); BILIRUBIN,DIRECT 0.1 MG/DL (<0.4); BILIRUBIN,TOTAL 0.4 MG/DL (0.3-1.2); TOTAL PROTEIN 6.8 G/DL (5.7-8.2)
[2023-02-20 19:16] LABS: INR 1.03; PROTHROMBIN TIME 13.7 SECONDS (12.5-14.5)
[2023-02-20 19:17] LABS: PARTIAL THROMBOPLASTIN TIME 36.5 SECONDS (24.8-34.2)
[2023-02-20] MEDS: INSULIN LISPRO (NovoLOG) PER UNIT SC SCH (21:00)
[2023-02-20] MEDS ORDERED: PREGABALIN 75 MG CAP(LYRICA) PO SCH (21:00)
[2023-02-20] MEDS ORDERED: GABAPENTIN 100 MG CAP PO SCH (21:00)
[2023-02-20] MEDS ORDERED: GLUCOSE 4GM CHEW TABLET PO PRN (21:05)
[2023-02-20] MEDS ORDERED: GLUCAGON INJ 1MG VIAL SC PRN (21:05)
[2023-02-20] MEDS ORDERED: DEXTROSE 50% 50ML SYRINGE IV PRN (21:05)
[2023-02-20 22:35] VITALS: BP 158/69; TEMP 97.2; O2SAT 97
[2023-02-20] MEDS ORDERED: MIRA1POW3 PO (22:37)
[2023-02-20] MEDS ORDERED: ALBU8.5H INH (22:37)
[2023-02-20] MEDS ORDERED: CETI-24 PO (22:37)
[2023-02-20] MEDS ORDERED: HYDR200T46 PO (22:37)
[2023-02-20] MEDS ORDERED: VALT1TAB PO (22:37)
[2023-02-20] MEDS ORDERED: ZOVI5OIN8 TOP (22:37)
[2023-02-20] MEDS ORDERED: AMLO1TAB25 PO (22:37)
[2023-02-20] MEDS ORDERED: TRUL0.5I SC (22:37)
[2023-02-20] MEDS ORDERED: ASPI-161 PO (22:37)
[2023-02-20] MEDS ORDERED: CLOB5CR TOP (22:37)
[2023-02-20] MEDS ORDERED: ATOR80TA59 PO (22:37)
[2023-02-20] MEDS ORDERED: HOME MED LIST COMPLETE! XX SCH (22:40)
[2023-02-20] MEDS: ACETAMINOPHEN TAB 650MG DOSE (2X325MG) PO PRN (22:51)
[2023-02-20] MEDS ORDERED: NITROGLYCERIN 0.4MG SUBL TABLET SL PRN (23:20)
[2023-02-20] MEDS ORDERED: ALBUTEROL 90 MCG/ACT 8GM HFA INHALER INH PRN (23:20)
[2023-02-20] MEDS ORDERED: PILL CUTTER 1 EACH XX PRN (23:30)
[2023-02-20] MEDS: ATORVASTATIN 20 MG TAB PO SCH (23:31)
[2023-02-20] MEDS: CARVedilol 12.5 MG TAB PO SCH (23:33)
[2023-02-21 05:38] VITALS: BP 128/66; TEMP 97.5; O2SAT 98
[2023-02-21 05:55] LABS: HEMATOCRIT 34.2 % (36.0-47.0); MEAN CORPUSCULAR HEMOGLOBIN 27.6 pg (27.0-33.0); MEAN CORPUSCULAR HGB CONC 32.2 g/dl (32.0-36.5); MEAN CORPUSCULAR VOLUME 85.9 fl (80.0-96.0); PLATELET COUNT, AUTOMATED 243 10^3/uL (150-450); RED BLOOD COUNT 3.98 10^6/uL (4.00-5.40); WHITE BLOOD COUNT 5.8 10^3/uL (4.0-10.0)
[2023-02-21 06:22] LABS: BLOOD UREA NITROGEN 12 MG/DL (9-23); CALCIUM LEVEL 8.5 MG/DL (8.3-10.6); CARBON DIOXIDE LEVEL 27 MMOL/L (20-31); CHLORIDE LEVEL 108 MMOL/L (98-107); CREATININE FOR GFR 0.59 MG/DL (0.55-1.30); GLOMERULAR FILTRATION RATE > 60.0 (>39); GLUCOSE, FASTING 73 MG/DL (74-106); MAGNESIUM LEVEL 1.5 MG/DL (1.8-2.4); POTASSIUM SERUM 3.9 MMOL/L (3.5-5.1); SODIUM LEVEL 144 MMOL/L (136-145)
[2023-02-21] MEDS ORDERED: MAGNESIUM OXIDE 400MG TAB (MAG-OX) PO ONE (06:50)
[2023-02-21] MEDS: INSULIN LISPRO (NovoLOG) PER UNIT SC SCH ×4 (07:30→21:00)
[2023-02-21] MEDS: FLUoxetine 20MG CAP PO SCH (08:34)
[2023-02-21] MEDS: PANTOPRAZOLE 40MG TAB (PROTONIX) PO SCH (08:34)
[2023-02-21] MEDS: HYDROXYCHLOROQUINE 200 MG TAB PO SCH (08:34)
[2023-02-21] MEDS: ASPIRIN 81MG ENTERIC TABLET PO SCH (08:34)
[2023-02-21] MEDS: ACETAMINOPHEN TAB 650MG DOSE (2X325MG) PO PRN (08:35)
[2023-02-21] MEDS: CARVedilol 12.5 MG TAB PO SCH ×2 (08:35→20:10)
[2023-02-21 08:56] LABS: ERYTHROCYTE SEDIMENTATION RATE 16 mm/hr (0-30)
[2023-02-21] MEDS ORDERED: GABAPENTIN 300 MG CAP PO SCH (09:00)
[2023-02-21] MEDS: PREGABALIN 75 MG CAP(LYRICA) PO SCH ×3 (10:09→20:11)
[2023-02-21] MEDS ORDERED: DOCUSATE SODIUM 100MG CAPSULE PO ONE (10:15)
[2023-02-21] MEDS: valACYclovir HCL 500 MG TAB PO SCH ×3 (11:01→20:11)
[2023-02-21] MEDS: ENOXAPARIN 40MG/0.4ML SYRINGE (J1650 PER 10MG) SC SCH (11:02)
[2023-02-21 14:00] VITALS: TEMP 97.7; O2SAT 92
[2023-02-21] MEDS: DOCUSATE SODIUM 100MG CAPSULE PO SCH (20:11)
[2023-02-21] MEDS: ATORVASTATIN 20 MG TAB PO SCH (20:11)
[2023-02-21 21:00] VITALS: BP 120/65; TEMP 97.9; O2SAT 94
[2023-02-21] MEDS ORDERED: MIRALAX *UNIT DOSE* 17GM PACKET PO SCH (21:00)
[2023-02-21] MEDS ORDERED: HYDROXYCHLOROQUINE 200 MG TAB PO SCH (21:00)
[2023-02-22 04:50] VITALS: BP 126/64; TEMP 97.3; O2SAT 97
[2023-02-22 06:13] LABS: HEMOGLOBIN 10.6 g/dl (12.0-15.5); MEAN CORPUSCULAR HEMOGLOBIN 27.6 pg (27.0-33.0); MEAN CORPUSCULAR HGB CONC 32.1 g/dl (32.0-36.5); MEAN CORPUSCULAR VOLUME 85.9 fl (80.0-96.0); PLATELET COUNT, AUTOMATED 233 10^3/uL (150-450); RED BLOOD COUNT 3.84 10^6/uL (4.00-5.40); WHITE BLOOD COUNT 6.3 10^3/uL (4.0-10.0)
[2023-02-22 06:48] LABS: BLOOD UREA NITROGEN 17 MG/DL (9-23); CALCIUM LEVEL 8.5 MG/DL (8.3-10.6); CARBON DIOXIDE LEVEL 24 MMOL/L (20-31); CHLORIDE LEVEL 108 MMOL/L (98-107); CREATININE FOR GFR 0.68 MG/DL (0.55-1.30); GLOMERULAR FILTRATION RATE > 60.0 (>39); GLUCOSE, FASTING 131 MG/DL (74-106); PHOSPHORUS LEVEL 4.7 MG/DL (2.4-5.1); SODIUM LEVEL 142 MMOL/L (136-145)
[2023-02-22 08:03] VITALS: BP 127/63
[2023-02-22] MEDS: ENOXAPARIN 40MG/0.4ML SYRINGE (J1650 PER 10MG) SC SCH (08:40)
[2023-02-22] MEDS: INSULIN LISPRO (NovoLOG) PER UNIT SC SCH ×2 (08:41→12:19)
[2023-02-22] MEDS: HYDROXYCHLOROQUINE 200 MG TAB PO SCH (08:42)
[2023-02-22 08:43] VITALS: BP 127/63
[2023-02-22] MEDS: valACYclovir HCL 500 MG TAB PO SCH (08:43)
[2023-02-22] MEDS: PREGABALIN 75 MG CAP(LYRICA) PO SCH (08:43)
[2023-02-22] MEDS: FLUoxetine 20MG CAP PO SCH (08:43)
[2023-02-22] MEDS: ASPIRIN 81MG ENTERIC TABLET PO SCH (08:43)
[2023-02-22] MEDS: CARVedilol 12.5 MG TAB PO SCH (08:43)
[2023-02-22] MEDS: DOCUSATE SODIUM 100MG CAPSULE PO SCH (08:43)
[2023-02-22] MEDS: PANTOPRAZOLE 40MG TAB (PROTONIX) PO SCH (08:43)
[2023-02-22 09:28] LABS: MAGNESIUM LEVEL 1.6 MG/DL (1.8-2.4)
[2023-02-22] MEDS ORDERED: VALA500T5 PO (12:00)
[2023-02-22] MEDS ORDERED: MAGNESIUM OXIDE 400MG TAB (MAG-OX) PO ONE (12:00)
[2023-02-22 14:14] VITALS: BP 138/61
[2023-02-26 09:10] LABS: HSV-1 DNA Negative (Negative); HSV-2 DNA Negative (Negative)
== END 2023-02-22 13:39 | disposition home or self-care (01) ==
LOC: M ED 13:17 → M ED INP 19:23 → M MSPAV 22:45
PROVIDERS: ADMIT Internal Medicine; ATTEND Internal Medicine
DX: R51.9 Headache, unspecified (principal); R20.2 Paresthesia of skin; I10 Essential (primary) hypertension; E11.9 Type 2 diabetes mellitus without complications; G47.33 Obstructive sleep apnea (adult) (pediatric); I25.10 Atherosclerotic heart disease of native coronary artery without angina pectoris; E03.9 Hypothyroidism, unspecified; Z98.61 Coronary angioplasty status; K21.9 Gastro-esophageal reflux disease without esophagitis; G89.29 Other chronic pain; Z86.73 Personal history of transient ischemic attack (TIA), and cerebral infarction without residual deficits; Z79.82 Long term (current) use of aspirin; Z79.84 Long term (current) use of oral hypoglycemic drugs; Z79.899 Other long term (current) drug therapy; Z88.0 Allergy status to penicillin; Z88.5 Allergy status to narcotic agent; Z88.8 Allergy status to other drugs, medicaments and biological substances
CPT/HCPCS: 36415; 70450; 70496; 70498; 70551; 80047; 80048; 80076; 83735; 84100; 85025; 85027; 85610; 85652; 85730; 87529; 87635; 93005; 96372; 99285; G0378; J1650; J1815; Q9967

== ENCOUNTER 2023-09-03 11:31 | Emergency (ER) | payer MEDICARE, MEDICAID ==
[~2023-09-03] VITALS: Ht 144.8 cm; Wt 62.5 kg
[~2023-09-03 11:31] MED LIST changes: +ALBU8.5H INH; +ASPI-615 PO; +ATOR80TA59 PO; +CLOB5CR TOP; +MIRA33506 PO; +TRUL0.5I SC; +VALA500T5 PO; +VALT1TAB PO; +ZOVI5OIN8 TOP
[2023-09-03] MEDS: methocarbamoL 500 MG TAB PO ONE (15:36)
[2023-09-03] MEDS: ACETAMINOPHEN TAB 650MG DOSE (2X325MG) PO ONE (15:36)
[2023-09-03] MEDS: LIDOCAINE 5% (LIDODERM) PATCH TD ONE (15:39)
[2023-09-03] MEDS ORDERED: METH-1164 PO (16:59)
[2023-09-03 17:16] VITALS: BP 125/66; TEMP 96.2; O2SAT 98
== END 2023-09-03 17:29 | disposition home or self-care (01) ==
LOC: M ED 11:31
DX: S13.8XXA Sprain of joints and ligaments of other parts of neck, initial encounter (principal); M50.30 Other cervical disc degeneration, unspecified cervical region; G47.33 Obstructive sleep apnea (adult) (pediatric); E11.9 Type 2 diabetes mellitus without complications; I25.2 Old myocardial infarction; F41.9 Anxiety disorder, unspecified; Z86.79 Personal history of other diseases of the circulatory system; Z88.0 Allergy status to penicillin; Z88.5 Allergy status to narcotic agent; Z88.8 Allergy status to other drugs, medicaments and biological substances; Z79.52 Long term (current) use of systemic steroids; Z79.82 Long term (current) use of aspirin; Z79.02 Long term (current) use of antithrombotics/antiplatelets; Z79.4 Long term (current) use of insulin; Z79.899 Other long term (current) drug therapy

== ENCOUNTER → 2023-10-15 | Outpatient (CLI) | payer MEDICARE, MEDICAID ==
[~2023-10-15] MED LIST changes: +METH-1164 PO
[2023-10-15 17:15] LABS: APPEARANCE, URINE HAZY (CLEAR); BACTERIA, URINE AUTO NEGATIVE (NEGATIVE); BILIRUBIN, URINE AUTO NEGATIVE (NEGATIVE); BLOOD, URINE BLOOD NEGATIVE (NEGATIVE); COLOR, URINE YELLOW (YELLOW); GLUCOSE, URINE (UA) AUTO NEGATIVE (NEGATIVE); KETONE, URINE AUTO NEGATIVE (NEGATIVE); LEUKOCYTE ESTERASE, URINE AUTO 1+ (NEGATIVE); MUCUS, URINE SMALL (NEGATIVE); NITRITE, URINE AUTO NEGATIVE (NEGATIVE); PROTEIN, URINE AUTO NEGATIVE (NEGATIVE); RBC, URINE AUTO 1 /HPF (0-3); SPECIFIC GRAVITY URINE AUTO 1.015 (1.002-1.035); SQUAMOUS EPITHELIAL CELL UR AU 4 /HPF (0-6); UROBILINOGEN, URINE AUTO 0.2 mg/dL (0.0-2.0); WBC, URINE AUTO 4 /HPF (0-3)
[2023-10-15 17:20] LABS: HEMATOCRIT 35.7 % (36.0-47.0); HEMOGLOBIN 11.4 g/dl (12.0-15.5); MEAN CORPUSCULAR HEMOGLOBIN 27.4 pg (27.0-33.0); MEAN CORPUSCULAR HGB CONC 31.9 g/dl (32.0-36.5); MEAN CORPUSCULAR VOLUME 85.8 fl (80.0-96.0); PLATELET COUNT, AUTOMATED 243 10^3/uL (150-450); RED BLOOD COUNT 4.16 10^6/uL (4.00-5.40); WHITE BLOOD COUNT 11.1 10^3/uL (4.0-10.0)
[2023-10-15 17:38] LABS: ALBUMIN 3.7 G/DL (3.2-5.2); ALKALINE PHOSPHATASE 93 U/L (46-116); ALT/SGPT 29 U/L (7.0-40); AST/SGOT 19 U/L (<34); BILIRUBIN,TOTAL 0.4 MG/DL (0.3-1.2); BLOOD UREA NITROGEN 20 MG/DL (9-23); CARBON DIOXIDE LEVEL 28 MMOL/L (20-31); CHLORIDE LEVEL 103 MMOL/L (98-107); CHOLESTEROL LEVEL 118 MG/DL (<200); CHOLESTEROL RISK RATIO 2.11 (<5); CREATININE FOR GFR 0.66 MG/DL (0.55-1.30); GLOMERULAR FILTRATION RATE > 60.0 (>39); GLUCOSE, FASTING 158 MG/DL (74-106); HDL CHOLESTEROL 55.7 MG/DL (>40); LDL CHOLESTEROL 47.1 MG/DL (<100); NON-HDL-C 62.3 MG/DL; POTASSIUM SERUM 4.3 MMOL/L (3.5-5.1); SODIUM LEVEL 137 MMOL/L (136-145); TOTAL PROTEIN 6.6 G/DL (5.7-8.2); TRIGLYCERIDES LEVEL 76 MG/DL (<150)
[2023-10-15 17:42] LABS: HEMOGLOBIN A1c 7.4 % (4.0-6.0)
[2023-10-16 16:09] LABS: CALCIUM LEVEL 9.4 MG/DL (8.3-10.6)
== END ==
LOC: M WUC 11:38
PROVIDERS: ATTEND Family Medicine
DX: E78.5 Hyperlipidemia, unspecified (principal); I10 Essential (primary) hypertension; E11.21 Type 2 diabetes mellitus with diabetic nephropathy

== ENCOUNTER → 2023-11-15 | Outpatient (CLI) | payer MEDICARE, MEDICAID | LOC: M WHC 10:37 | PROVIDERS: ATTEND Family Medicine | DX: Z12.31 Encounter for screening mammogram for malignant neoplasm of breast (principal) ==

== ENCOUNTER 2024-02-05 16:14 | Emergency (ER) | payer MEDICARE, MEDICAID ==
[~2024-02-05] VITALS: Ht 147.3 cm; Wt 59.5 kg
[2024-02-05 16:47] VITALS: BP 132/63; TEMP 97.6; O2SAT 98
[2024-02-05] MEDS ORDERED: SEMA1PEN2 SQ (17:02)
== END 2024-02-05 21:09 | disposition home or self-care (01) ==
LOC: M ED 16:14
DX: T16.1XXA Foreign body in right ear, initial encounter (principal); I25.2 Old myocardial infarction; I10 Essential (primary) hypertension; E78.5 Hyperlipidemia, unspecified; K21.9 Gastro-esophageal reflux disease without esophagitis; E11.9 Type 2 diabetes mellitus without complications; Z88.0 Allergy status to penicillin; Z88.5 Allergy status to narcotic agent; Z88.8 Allergy status to other drugs, medicaments and biological substances; Z86.73 Personal history of transient ischemic attack (TIA), and cerebral infarction without residual deficits; Z79.52 Long term (current) use of systemic steroids; Z79.82 Long term (current) use of aspirin; Z79.4 Long term (current) use of insulin; Z79.899 Other long term (current) drug therapy; Y92.9 Unspecified place or not applicable; Y93.89 Activity, other specified; Y99.9 Unspecified external cause status

== ENCOUNTER → 2024-02-27 | Outpatient (REF) | payer MEDICARE, MEDICAID ==
[~2024-02-27] MED LIST changes: +SEMA1PEN2 SQ
[2024-02-27 22:38] LABS: RSV AMPLIFICATION NEGATIVE (NEGATIVE)
== END ==
LOC: M LAB REF 21:11
PROVIDERS: ATTEND Student in an Organized Health Care Education/Training Program
DX: J06.9 Acute upper respiratory infection, unspecified (principal)

== ENCOUNTER → 2024-03-10 | Outpatient (CLI) | payer MEDICARE, MEDICAID | LOC: M RAD 10:51 | PROVIDERS: ATTEND Psychiatry & Neurology Neurology | DX: I73.9 Peripheral vascular disease, unspecified (principal) ==

== ENCOUNTER 2024-03-29 00:44 | Inpatient (IN) | payer MEDICARE, MEDICAID ==
[~2024-03-29] VITALS: Ht 147.3 cm; Wt 64.5 kg
[2024-03-29 01:23] LABS: HEMATOCRIT 35.8 % (36.0-47.0); HEMOGLOBIN 11.6 g/dl (12.0-15.5); MEAN CORPUSCULAR HEMOGLOBIN 27.7 pg (27.0-33.0); MEAN CORPUSCULAR HGB CONC 32.4 g/dl (32.0-36.5); MEAN CORPUSCULAR VOLUME 85.4 fl (80.0-96.0); PLATELET COUNT, AUTOMATED 213 10^3/uL (150-450); RED BLOOD COUNT 4.19 10^6/uL (4.00-5.40); WHITE BLOOD COUNT 8.6 10^3/uL (4.0-10.0)
[2024-03-29 01:33] LABS: HEMOGLOBIN A1c 6.9 % (4.0-6.0)
[2024-03-29 01:34] LABS: INR 1.11; PARTIAL THROMBOPLASTIN TIME 37.3 SECONDS (24.8-34.2)
[2024-03-29 01:53] LABS: ALBUMIN 3.4 G/DL (3.2-5.2); BILIRUBIN,TOTAL 0.4 MG/DL (0.3-1.2); CALCIUM LEVEL 8.4 MG/DL (8.3-10.6); CHOLESTEROL RISK RATIO 2.4 (<5); GLOMERULAR FILTRATION RATE 26.1 (>39); LDL CHOLESTEROL 40.8 MG/DL (<100); POTASSIUM SERUM 4.7 MMOL/L (3.5-5.1); TOTAL PROTEIN 6.2 G/DL (5.7-8.2)
[2024-03-29] MEDS: NS 500 ML IV ONE (10:09)
[2024-03-29] MEDS ORDERED: ACETAMINOPHEN TAB 650MG DOSE (2X325MG) PO PRN (10:30)
[2024-03-29] MEDS ORDERED: GLUCOSE 4 GM CHEW PO PRN (10:35)
[2024-03-29] MEDS ORDERED: DEXTROSE 50% 50ML SYRINGE IV PRN (10:35)
[2024-03-29] MEDS ORDERED: GLUCAGON INJ 1MG VIAL SC PRN (10:35)
[2024-03-29] MEDS ORDERED: DULO1CAP6 PO (10:54)
[2024-03-29] MEDS ORDERED: PREG200C2 PO (10:57)
[2024-03-29] MEDS ORDERED: HOME MED LIST COMPLETE! XX SCH (11:00)
[2024-03-29 11:21] LABS: INR 1.11
[2024-03-29] MEDS: NS 1,000 ML IV SCH (11:31)
[2024-03-29 11:36] LABS: CHOLESTEROL LEVEL 114 MG/DL (<200); CHOLESTEROL RISK RATIO 2.39 (<5); HDL CHOLESTEROL 47.6 MG/DL (>40); NON-HDL-C 66.4 MG/DL; TRIGLYCERIDES LEVEL 82 MG/DL (<150)
[2024-03-29 12:00] LABS: CK-MB VALUE MASS < 1.0 NG/ML (<3.6)
[2024-03-29 12:03] LABS: CPK CREATINE PHOSPHOKINASE 52 U/L (34-145); MB/CK RELATIVE INDEX 1.92 (< OR =4)
[2024-03-29 12:35] VITALS: BP 135/73; TEMP 98.1; O2SAT 94
[2024-03-29] MEDS ORDERED: ALBUTEROL 90 MCG/ACT 8GM HFA INHALER INH PRN (13:30)
[2024-03-29] MEDS: INSULIN LISPRO (NovoLOG) PER UNIT SC SCH ×2 (13:32→23:08)
[2024-03-29] MEDS: HEPARIN SOD (PORCINE) 5000UNITS/ML 1ML VIAL/SYRINGE SC SCH (13:33)
[2024-03-29] MEDS: ASPIRIN 325 MG TAB PO ONE (13:33)
[2024-03-29 20:32] VITALS: BP 138/70; TEMP 97.5; O2SAT 95
[2024-03-29] MEDS: PREGABALIN 100 MG CAP (LYRICA) PO SCH (23:08)
[2024-03-29] MEDS: ATORVASTATIN 20 MG TAB PO SCH (23:08)
[2024-03-29] MEDS: CARVedilol 12.5 MG TAB PO SCH (23:12)
[2024-03-30 05:03] VITALS: BP 144/67; TEMP 98.2; O2SAT 92
[2024-03-30 05:57] LABS: HEMATOCRIT 32.8 % (36.0-47.0); HEMOGLOBIN 10.6 g/dl (12.0-15.5); MEAN CORPUSCULAR HEMOGLOBIN 27.2 pg (27.0-33.0); MEAN CORPUSCULAR HGB CONC 32.3 g/dl (32.0-36.5); MEAN CORPUSCULAR VOLUME 84.1 fl (80.0-96.0); PLATELET COUNT, AUTOMATED 226 10^3/uL (150-450); WHITE BLOOD COUNT 6.9 10^3/uL (4.0-10.0)
[2024-03-30 06:21] LABS: ALBUMIN 3.2 G/DL (3.2-5.2); BILIRUBIN,TOTAL 0.4 MG/DL (0.3-1.2); CALCIUM LEVEL 8.9 MG/DL (8.3-10.6); CREATININE FOR GFR 1.46 MG/DL (0.55-1.30); GLOMERULAR FILTRATION RATE 37.6 (>39); POTASSIUM SERUM 4.1 MMOL/L (3.5-5.1)
[2024-03-30] MEDS: ASPIRIN 325 MG TAB PO SCH (09:11)
[2024-03-30] MEDS: DULoxetine 30MG CAPSULE (CYMBALTA) PO SCH (09:11)
[2024-03-30] MEDS: PANTOPRAZOLE 40MG TAB (PROTONIX) PO SCH (09:11)
[2024-03-30] MEDS: VITAMIN D 1,000 INTERNATIONAL UNITS TABLET PO SCH (09:11)
[2024-03-30 12:00] VITALS: BP 131/58; TEMP 98.1; O2SAT 97
[2024-03-30 20:00] VITALS: BP 147/67; TEMP 98.1; O2SAT 97
[2024-03-31 04:13] VITALS: BP 143/56; TEMP 98.2; O2SAT 95
[2024-03-31 07:22] LABS: HEMATOCRIT 32.8 % (36.0-47.0); HEMOGLOBIN 10.8 g/dl (12.0-15.5); MEAN CORPUSCULAR HEMOGLOBIN 27.3 pg (27.0-33.0); MEAN CORPUSCULAR HGB CONC 32.9 g/dl (32.0-36.5); PLATELET COUNT, AUTOMATED 238 10^3/uL (150-450); RED BLOOD COUNT 3.95 10^6/uL (4.00-5.40); WHITE BLOOD COUNT 7.4 10^3/uL (4.0-10.0)
[2024-03-31 07:43] LABS: ALBUMIN 3.2 G/DL (3.2-5.2); BILIRUBIN,TOTAL 0.4 MG/DL (0.3-1.2); CALCIUM LEVEL 8.8 MG/DL (8.3-10.6); GLOMERULAR FILTRATION RATE 58.2 (>39); POTASSIUM SERUM 3.6 MMOL/L (3.5-5.1); TOTAL PROTEIN 6.1 G/DL (5.7-8.2)
[2024-03-31 08:15] VITALS: BP 160/75
== END 2024-03-31 12:30 | disposition home or self-care (01) | DRG 683 ==
LOC: M ED 00:44 → EDBD 00:44 → M ED INP 10:26 → M MSPAV 12:36
PROVIDERS: ADMIT Internal Medicine; ATTEND Internal Medicine Nephrology
DX: N17.9 Acute kidney failure, unspecified (principal); G45.9 Transient cerebral ischemic attack, unspecified; I25.10 Atherosclerotic heart disease of native coronary artery without angina pectoris; Z95.5 Presence of coronary angioplasty implant and graft; I25.2 Old myocardial infarction; I10 Essential (primary) hypertension; E78.5 Hyperlipidemia, unspecified; E11.43 Type 2 diabetes mellitus with diabetic autonomic (poly)neuropathy; G47.33 Obstructive sleep apnea (adult) (pediatric); K31.84 Gastroparesis; I95.1 Orthostatic hypotension; K21.9 Gastro-esophageal reflux disease without esophagitis; N39.3 Stress incontinence (female) (male); F41.9 Anxiety disorder, unspecified; G89.29 Other chronic pain; M06.9 Rheumatoid arthritis, unspecified; M54.9 Dorsalgia, unspecified; Z86.73 Personal history of transient ischemic attack (TIA), and cerebral infarction without residual deficits; Z79.82 Long term (current) use of aspirin; Z79.84 Long term (current) use of oral hypoglycemic drugs; Z79.899 Other long term (current) drug therapy; Z88.0 Allergy status to penicillin; Z88.1 Allergy status to other antibiotic agents; Z88.5 Allergy status to narcotic agent; Z88.8 Allergy status to other drugs, medicaments and biological substances

== ENCOUNTER 2024-07-31 13:31 | Emergency (ER) | payer MEDICARE, MEDICAID ==
[~2024-07-31] VITALS: Ht 147.3 cm; Wt 58.9 kg
[~2024-07-31 13:31] MED LIST changes: +ATOR-398 PO; +DULO1CAP6 PO; +PREG200C2 PO
[2024-07-31] MEDS ORDERED: PRED10TA2 PO (18:19)
[2024-07-31] MEDS: KETOROLAC 60MG 2ML VIAL IM ONE (18:35)
[2024-07-31 18:44] VITALS: BP 119/56; TEMP 97.5; O2SAT 98
== END 2024-07-31 18:47 | disposition home or self-care (01) ==
LOC: M ED 13:31
DX: M26.602 Left temporomandibular joint disorder, unspecified (principal); R68.84 Jaw pain; I25.2 Old myocardial infarction; E11.9 Type 2 diabetes mellitus without complications; Z86.79 Personal history of other diseases of the circulatory system; Z88.0 Allergy status to penicillin; Z88.5 Allergy status to narcotic agent; Z88.8 Allergy status to other drugs, medicaments and biological substances; Z79.52 Long term (current) use of systemic steroids; Z79.82 Long term (current) use of aspirin; Z79.02 Long term (current) use of antithrombotics/antiplatelets; Z79.4 Long term (current) use of insulin; Z79.899 Other long term (current) drug therapy
CPT/HCPCS: 70110; 96372; 99283; J1885

== ENCOUNTER 2024-09-16 16:29 | Emergency (ER) | payer MEDICARE, MEDICAID ==
[~2024-09-16] VITALS: Ht 147.3 cm; Wt 59.4 kg
[~2024-09-16 16:29] MED LIST changes: +PRED10TA2 PO
[2024-09-16 16:32] VITALS: TEMP 97.5
[2024-09-16 17:13] LABS: BASO # 0.1 10^3/uL (0.0-0.2); BASO % 1.4 % (0.0-1.0); EOS # 0.2 10^3/uL (0.0-0.5); EOS % 4.6 % (0.0-3.0); HEMOGLOBIN 11.2 g/dl (12.0-15.5); LYMPH # 1.8 10^3/uL (1.5-5.0); MEAN CORPUSCULAR HEMOGLOBIN 27.1 pg (27.0-33.0); MEAN CORPUSCULAR VOLUME 84.5 fl (80.0-96.0); MONO # 0.3 10^3/uL (0.0-0.8); MONO % 5.8 % (2.0-8.0); NEUTROPHILS # 2.5 10^3/uL (1.5-8.5); PLATELET COUNT, AUTOMATED 215 10^3/uL (150-450); RED BLOOD COUNT 4.14 10^6/uL (4.00-5.40)
[2024-09-16 17:24] LABS: INR 1.03; PROTHROMBIN TIME 13.8 SECONDS (12.5-14.5)
[2024-09-16 17:37] LABS: LIPASE 47 U/L (12-53)
[2024-09-16 17:39] LABS: CPK CREATINE PHOSPHOKINASE 64 U/L (34-145)
[2024-09-16 17:40] LABS: ALBUMIN 3.5 G/DL (3.2-5.2); ALKALINE PHOSPHATASE 81 U/L (35-104); ALT/SGPT 21 U/L (7.0-40); AST/SGOT 14 U/L (<34); BILIRUBIN,DIRECT 0.1 MG/DL (<0.4); BILIRUBIN,TOTAL 0.3 MG/DL (0.3-1.2); BLOOD UREA NITROGEN 14 MG/DL (9-23); CALCIUM LEVEL 8.4 MG/DL (8.3-10.6); CARBON DIOXIDE LEVEL 26 MMOL/L (20-31); CHLORIDE LEVEL 107 MMOL/L (98-107); CK-MB VALUE MASS < 1.0 NG/ML (<3.6); CREATININE FOR GFR 0.62 MG/DL (0.55-1.30); GLOMERULAR FILTRATION RATE > 60.0 (>39); GLUCOSE, FASTING 141 MG/DL (74-106); MB/CK RELATIVE INDEX 1.56 (< OR =4); SODIUM LEVEL 140 MMOL/L (136-145); TOTAL PROTEIN 6.3 G/DL (5.7-8.2)
[2024-09-16 19:41] LABS: CK-MB VALUE MASS < 1.0 NG/ML (<3.6)
[2024-09-16 19:43] LABS: CPK CREATINE PHOSPHOKINASE 65 U/L (34-145); MB/CK RELATIVE INDEX 1.53 (< OR =4)
[2024-09-16 20:00] VITALS: O2SAT 95
[2024-09-16 20:15] VITALS: BP 147/76
[2024-09-16] MEDS: methocarbamoL 500 MG TAB PO ONE (20:35)
[2024-09-16] MEDS ORDERED: METH-1164 PO (21:30)
== END 2024-09-16 21:41 | disposition home or self-care (01) ==
LOC: M ED 16:29
DX: M62.838 Other muscle spasm (principal); M25.512 Pain in left shoulder; E11.9 Type 2 diabetes mellitus without complications; E78.5 Hyperlipidemia, unspecified; K21.9 Gastro-esophageal reflux disease without esophagitis; M05.9 Rheumatoid arthritis with rheumatoid factor, unspecified; J84.10 Pulmonary fibrosis, unspecified; Z86.73 Personal history of transient ischemic attack (TIA), and cerebral infarction without residual deficits; Z88.0 Allergy status to penicillin; Z88.5 Allergy status to narcotic agent; Z88.8 Allergy status to other drugs, medicaments and biological substances; Z79.52 Long term (current) use of systemic steroids; Z79.82 Long term (current) use of aspirin; Z79.02 Long term (current) use of antithrombotics/antiplatelets; Z79.4 Long term (current) use of insulin; Z79.899 Other long term (current) drug therapy

== ENCOUNTER → 2024-11-17 | Outpatient (CLI) | payer MEDICARE, MEDICAID | LOC: M RAD 12:18 | PROVIDERS: ATTEND Psychiatry & Neurology Neurology | DX: I73.9 Peripheral vascular disease, unspecified (principal) ==

== ENCOUNTER → 2024-11-18 | Outpatient (CLI) | payer MEDICARE, MEDICAID ==
[2024-11-18 09:49] LABS: CHOLESTEROL RISK RATIO 2.51 (<5); HDL CHOLESTEROL 46.2 MG/DL (>40); NON-HDL-C 69.8 MG/DL
== END ==
LOC: M LAB 08:34
PROVIDERS: ATTEND Nurse Practitioner Acute Care
DX: E78.2 Mixed hyperlipidemia (principal)

== ENCOUNTER → 2025-03-08 | Outpatient (CLI) | payer MEDICARE, MEDICAID ==
[~2025-03-08] MED LIST changes: +LISI40TA10; +LISI40TA10 PO; -LISI40TA4; -LISI40TA4 PO
[2025-03-08 13:54] LABS: PLATELET COUNT, AUTOMATED 254 10^3/uL (150-450)
[2025-03-08 14:06] LABS: INR 1.05
[2025-03-08 14:15] LABS: ALT/SGPT 23.0 U/L (7.0-40); AST/SGOT 20.0 U/L (<34); CALCIUM LEVEL 9.2 MG/DL (8.3-10.6); CARBON DIOXIDE LEVEL 28.0 MMOL/L (20-31); CHLORIDE LEVEL 107.0 MMOL/L (98-107); CREATININE FOR GFR 0.74 MG/DL (0.55-1.30); GLOMERULAR FILTRATION RATE 85.9 (>39); POTASSIUM SERUM 4.6 MMOL/L (3.5-5.1); SODIUM LEVEL 144.0 MMOL/L (136-145)
== END ==
LOC: M LAB 13:15
PROVIDERS: ATTEND Physician Assistant
DX: I70.201 Unspecified atherosclerosis of native arteries of extremities, right leg (principal); D69.8 Other specified hemorrhagic conditions

== ENCOUNTER 2025-05-21 18:14 | Emergency (ER) | payer MEDICARE, MEDICAID ==
[~2025-05-21] VITALS: Ht 152.4 cm; Wt 59.1 kg
[2025-05-21] MEDS ORDERED: ISOVUE-370 76% 100 ML VIAL As Ordered ONE (18:44)
[2025-05-21 18:45] LABS: BASO # 0.1 10^3/uL (0.0-0.2); BASO % 0.5 % (0.0-1.0); EOS # 0.1 10^3/uL (0.0-0.5); EOS % 1.3 % (0.0-3.0); LYMPH # 1.7 10^3/uL (1.5-5.0); LYMPH % 16.2 % (24.0-44.0); MONO # 0.4 10^3/uL (0.0-0.8); MONO % 3.8 % (2.0-8.0); NEUTROPHILS # 8.1 10^3/uL (1.5-8.5); NEUTROPHILS % 77.9 % (36.0-66.0); PLATELET COUNT, AUTOMATED 270 10^3/uL (150-450)
[2025-05-21] MEDS: ONDANSETRON 4MG/2ML VIAL IV ONE (18:46)
[2025-05-21] MEDS: NS 500 ML IV ONE (18:47)
[2025-05-21] MEDS: ACETAMINOPHEN *IV* 1,000 MG in IV 1 EA IV ONE (19:06)
[2025-05-21 19:17] LABS: ALT/SGPT 90.0 U/L (7.0-40); AST/SGOT 180.0 U/L (<34); CALCIUM LEVEL 8.2 MG/DL (8.3-10.6); CARBON DIOXIDE LEVEL 22.0 MMOL/L (20-31); CHLORIDE LEVEL 105.0 MMOL/L (98-107); CK-MB VALUE MASS 3.6 NG/ML (<3.6); CREATININE FOR GFR 0.82 MG/DL (0.55-1.30); GLOMERULAR FILTRATION RATE 76.0 (>39); POTASSIUM SERUM 3.7 MMOL/L (3.5-5.1); SODIUM LEVEL 140.0 MMOL/L (136-145)
[2025-05-21 19:18] LABS: CPK CREATINE PHOSPHOKINASE 236.0 U/L (34-145); MB/CK RELATIVE INDEX 1.52 (< OR =4)
[2025-05-21 20:06] LABS: CK-MB VALUE MASS 3.1 NG/ML (<3.6)
[2025-05-21 20:07] LABS: CPK CREATINE PHOSPHOKINASE 192.0 U/L (34-145); MB/CK RELATIVE INDEX 1.61 (< OR =4)
[2025-05-21] MEDS: ERTAPENEM SODIUM 1 GM in NS MINI-BAG PLUS 50 ML IV ONE (23:34)
[2025-05-22] MEDS: KETOROLAC 30 MG/ML 1 ML VIAL IV ONE (00:55)
[2025-05-22] MEDS: NS (Normal Saline) 0.9% 1,000 ML IV SCH (00:55)
[2025-05-22] MEDS: HYDROMORPHONE HCL 0.5 MG/0.5 ML SYRINGE IV PRN (06:40)
[2025-05-22 07:09] VITALS: BP 159/72; TEMP 99.3
[2025-05-26 17:45] VITALS: O2SAT 97
== END 2025-05-22 07:05 | disposition short-term general hospital (02) ==
LOC: M ED 18:14
DX: K80.50 Calculus of bile duct without cholangitis or cholecystitis without obstruction (principal); K76.0 Fatty (change of) liver, not elsewhere classified; M47.816 Spondylosis without myelopathy or radiculopathy, lumbar region; K59.00 Constipation, unspecified; I70.0 Atherosclerosis of aorta; I25.2 Old myocardial infarction; F10.10 Alcohol abuse, uncomplicated; Z90.49 Acquired absence of other specified parts of digestive tract; Z88.0 Allergy status to penicillin; Z88.8 Allergy status to other drugs, medicaments and biological substances; Z88.5 Allergy status to narcotic agent; Z79.52 Long term (current) use of systemic steroids; Z79.82 Long term (current) use of aspirin; Z79.4 Long term (current) use of insulin; Z79.899 Other long term (current) drug therapy
CPT/HCPCS: 71045; 71275; 74177; 74181; 80047; 80048; 80076; 82550; 82553; 83605; 83690; 84484; 85025; 93005; 93041; 94760; 96374; 96375; 96376; 99285; J0131; J1171; J1335; J1885; J2405; J2765; J3010; Q9967

== ENCOUNTER 2025-05-26 14:38 | Emergency (ER) | payer MEDICARE, MEDICAID ==
[~2025-05-26] VITALS: Ht 147.3 cm; Wt 60.1 kg
[2025-05-26] MEDS: NS (Normal Saline) 0.9% 1,000 ML IV ONE (15:59)
[2025-05-26] MEDS: ONDANSETRON 4MG/2ML VIAL IV ONE (15:59)
[2025-05-26 16:15] LABS: BASO # 0.0 10^3/uL (0.0-0.2); BASO % 0.9 % (0.0-1.0); EOS # 0.0 10^3/uL (0.0-0.5); EOS % 0.5 % (0.0-3.0); LYMPH # 0.6 10^3/uL (1.5-5.0); LYMPH % 14.1 % (24.0-44.0); MONO # 0.4 10^3/uL (0.0-0.8); MONO % 9.0 % (2.0-8.0); NEUTROPHILS # 3.2 10^3/uL (1.5-8.5); NEUTROPHILS % 74.1 % (36.0-66.0); PLATELET COUNT, AUTOMATED 212 10^3/uL (150-450)
[2025-05-26 16:40] LABS: ALT/SGPT 161 U/L (7.0-40); AST/SGOT 79 U/L (<34); CALCIUM LEVEL 7.8 MG/DL (8.3-10.6); CARBON DIOXIDE LEVEL 24 MMOL/L (20-31); CHLORIDE LEVEL 105 MMOL/L (98-107); CREATININE FOR GFR 0.60 MG/DL (0.55-1.30); GLOMERULAR FILTRATION RATE > 90.0 (>39); POTASSIUM SERUM 3.2 MMOL/L (3.5-5.1); SODIUM LEVEL 141 MMOL/L (136-145)
[2025-05-26 17:45] VITALS: BP 127/62; TEMP 97.9; O2SAT 94
[2025-05-26] MEDS: POTASSIUM CHLORIDE 10% LIQ 20MEQ/15ML UDC PO ONE (17:56)
== END 2025-05-26 18:03 | disposition home or self-care (01) ==
LOC: M ED 14:38
DX: E87.6 Hypokalemia (principal); R74.01 Elevation of levels of liver transaminase levels; I25.2 Old myocardial infarction; E11.9 Type 2 diabetes mellitus without complications; I10 Essential (primary) hypertension; Z88.0 Allergy status to penicillin; Z88.1 Allergy status to other antibiotic agents; Z88.5 Allergy status to narcotic agent; Z79.52 Long term (current) use of systemic steroids; Z79.899 Other long term (current) drug therapy; Z79.82 Long term (current) use of aspirin; Z79.02 Long term (current) use of antithrombotics/antiplatelets; Z79.4 Long term (current) use of insulin
CPT/HCPCS: 36415; 76705; 80053; 83605; 85025; 96361; 96374; 99284; J2405

== ENCOUNTER → 2025-06-02 | Outpatient (CLI) | payer MEDICARE, MEDICAID ==
[2025-06-02 15:11] LABS: BASO # 0.1 10^3/uL (0.0-0.2); BASO % 0.8 % (0.0-1.0); EOS # 0.1 10^3/uL (0.0-0.5); EOS % 1.7 % (0.0-3.0); LYMPH # 1.9 10^3/uL (1.5-5.0); LYMPH % 22.9 % (24.0-44.0); MONO # 0.4 10^3/uL (0.0-0.8); MONO % 4.5 % (2.0-8.0); NEUTROPHILS # 5.9 10^3/uL (1.5-8.5); NEUTROPHILS % 69.4 % (36.0-66.0); PLATELET COUNT, AUTOMATED 527 10^3/uL (150-450)
[2025-06-02 15:42] LABS: INR 0.97
[2025-06-02 15:44] LABS: IRON (FE) 32.0 UG/DL (50-170)
[2025-06-02 15:45] LABS: ALT/SGPT 100.0 U/L (7.0-40); AST/SGOT 66.0 U/L (<34); PERCENT SATURATION 11.1 % (13.2-45.0); VITAMIN B12 LEVEL 1379.0 PG/ML (211-911)
== END ==
LOC: M LAB 14:00
PROVIDERS: ATTEND Registered Nurse
DX: K80.50 Calculus of bile duct without cholangitis or cholecystitis without obstruction (principal); R53.83 Other fatigue

== ENCOUNTER → 2025-06-03 | Outpatient (CLI) | payer MEDICARE, MEDICAID ==
[~2025-06-03] MED LIST changes: +REGL10TA6 PO
== END ==
LOC: M RAD 11:31
PROVIDERS: ATTEND Registered Nurse
DX: R01.0 Benign and innocent cardiac murmurs (principal); Z53.9 Procedure and treatment not carried out, unspecified reason

== ENCOUNTER 2025-06-16 20:22 | Emergency (ER) | payer MEDICARE, MEDICAID ==
[~2025-06-16] VITALS: Ht 147.3 cm; Wt 59.1 kg
[~2025-06-16 20:22] MED LIST changes: -REGL10TA6 PO
[2025-06-16 21:21] LABS: VENOUS BASE EXCESS -1.7 (-2.0-2.0); VENOUS HCO3 22.6 MMOL/L (23.0-27.0); VENOUS O2 SATURATION 86.3 % (60.0-80.0); VENOUS PARTIAL PRESSURE CO2 36.8 mmHg (38.0-50.0); VENOUS PARTIAL PRESSURE O2 52.6 mmHg (30.0-50.0); VENOUS PH 7.406 UNITS (7.330-7.430); VENOUS STANDARD HCO3 22.8 MMOL/L; VENOUS TOTAL CO2 23.7 MMOL/L (24.0-28.0)
[2025-06-16 21:25] LABS: BASO # 0.1 10^3/uL (0.0-0.2); BASO % 1.4 % (0.0-1.0); EOS # 0.2 10^3/uL (0.0-0.5); EOS % 3.6 % (0.0-3.0); LYMPH # 2.1 10^3/uL (1.5-5.0); LYMPH % 35.7 % (24.0-44.0); MONO # 0.3 10^3/uL (0.0-0.8); MONO % 5.8 % (2.0-8.0); NEUTROPHILS # 3.1 10^3/uL (1.5-8.5); NEUTROPHILS % 53.2 % (36.0-66.0); PLATELET COUNT, AUTOMATED 245 10^3/uL (150-450)
[2025-06-16 21:32] LABS: ALT/SGPT 31 U/L (7.0-40); AST/SGOT 22 U/L (<34); CALCIUM LEVEL 8.6 MG/DL (8.3-10.6); CARBON DIOXIDE LEVEL 23 MMOL/L (20-31); CHLORIDE LEVEL 107 MMOL/L (98-107); CREATININE FOR GFR 0.66 MG/DL (0.55-1.30); GLOMERULAR FILTRATION RATE > 90.0 (>39); POTASSIUM SERUM 4.0 MMOL/L (3.5-5.1); SODIUM LEVEL 140 MMOL/L (136-145)
[2025-06-16 21:45] LABS: ESTIMATED AVERAGE GLUCOSE 180.0 MG/DL (60-110)
[2025-06-16] MEDS: KETOROLAC 30 MG/ML 1 ML VIAL IV ONE (22:00)
[2025-06-16] MEDS: NS (Normal Saline) 0.9% 1,000 ML IV ONE (22:00)
[2025-06-16 22:29] LABS: OSMOLALITY SERUM 299 MOSM/KG (280-301)
[2025-06-16 22:54] LABS: ACETONE/KETONE 0.14 MMOL/L (0.02-0.27)
[2025-06-17 00:30] LABS: KETONE, URINE AUTO RFX NEGATIVE (NEGATIVE); LEUKOCYTE ESTERASE UR AUTO RFX NEGATIVE (NEGATIVE); MUCUS, URINE RFX SMALL (NEGATIVE); NITRITE, URINE AUTO RFX NEGATIVE (NEGATIVE); RBC, URINE AUTO RFX 1 /HPF (0-3); SQUAM EPITHELIAL CELL UR AURFX 1 /HPF (0-6); WBC, URINE AUTO RFX 1 /HPF (0-3)
[2025-06-17 01:15] VITALS: O2SAT 96
[2025-06-17] MEDS ORDERED: REGL10TA6 PO (01:18)
[2025-06-17 01:24] VITALS: BP 147/70; TEMP 97.4
== END 2025-06-17 01:30 | disposition home or self-care (01) ==
LOC: M ED 20:22
DX: E11.65 Type 2 diabetes mellitus with hyperglycemia (principal); Z79.84 Long term (current) use of oral hypoglycemic drugs; Z88.0 Allergy status to penicillin; Z88.8 Allergy status to other drugs, medicaments and biological substances; Z88.5 Allergy status to narcotic agent; Z79.52 Long term (current) use of systemic steroids; Z79.82 Long term (current) use of aspirin; Z79.899 Other long term (current) drug therapy; Z79.02 Long term (current) use of antithrombotics/antiplatelets
CPT/HCPCS: 80047; 80048; 80076; 81001; 82010; 82803; 83036; 83690; 83930; 85025; 93005; 93041; 94760; 96361; 96374; 99285; J1885; J2765

== ENCOUNTER 2025-07-17 20:18 | Emergency (ER) | payer MEDICARE, MEDICAID ==
[~2025-07-17] VITALS: Ht 149.9 cm; Wt 61.0 kg
[~2025-07-17 20:18] MED LIST changes: +REGL10TA6 PO
[2025-07-17 21:11] LABS: BASO # 0.1 10^3/uL (0.0-0.2); BASO % 1.0 % (0.0-1.0); EOS # 0.2 10^3/uL (0.0-0.5); EOS % 2.2 % (0.0-3.0); LYMPH # 1.7 10^3/uL (1.5-5.0); LYMPH % 24.0 % (24.0-44.0); MONO # 0.3 10^3/uL (0.0-0.8); MONO % 4.3 % (2.0-8.0); NEUTROPHILS # 4.7 10^3/uL (1.5-8.5); NEUTROPHILS % 68.1 % (36.0-66.0); PLATELET COUNT, AUTOMATED 254 10^3/uL (150-450)
[2025-07-17 21:25] LABS: KETONE, URINE AUTO RFX NEGATIVE (NEGATIVE); LEUKOCYTE ESTERASE UR AUTO RFX NEGATIVE (NEGATIVE); NITRITE, URINE AUTO RFX NEGATIVE (NEGATIVE); RBC, URINE AUTO RFX 0 /HPF (0-3); SQUAM EPITHELIAL CELL UR AURFX 0 /HPF (0-6); WBC, URINE AUTO RFX 0 /HPF (0-3)
[2025-07-17 21:40] LABS: ALT/SGPT 34.0 U/L (7.0-40); AST/SGOT 19.0 U/L (<34); CALCIUM LEVEL 9.2 MG/DL (8.3-10.6); CARBON DIOXIDE LEVEL 24.0 MMOL/L (20-31); CHLORIDE LEVEL 110.0 MMOL/L (98-107); CREATININE FOR GFR 0.79 MG/DL (0.55-1.30); GLOMERULAR FILTRATION RATE 79.4 (>39); POTASSIUM SERUM 4.5 MMOL/L (3.5-5.1); SODIUM LEVEL 143.0 MMOL/L (136-145)
[2025-07-18] MEDS: ACETAMINOPHEN *IV* 1,000 MG in IV 1 EA IV ONE ×2 (00:15→12:05)
[2025-07-18] MEDS: NS (Normal Saline) 0.9% 1,000 ML IV ONE (00:15)
[2025-07-18 00:38] LABS: CK-MB VALUE MASS 1.8 NG/ML (<3.6)
[2025-07-18 00:57] LABS: CPK CREATINE PHOSPHOKINASE 92.0 U/L (34-145); MB/CK RELATIVE INDEX 1.95 (< OR =4)
[2025-07-18] MEDS ORDERED: ISOVUE-370 76% 100 ML VIAL As Ordered ONE (01:54)
[2025-07-18 02:31] LABS: CK-MB VALUE MASS 1.7 NG/ML (<3.6)
[2025-07-18 02:32] LABS: CPK CREATINE PHOSPHOKINASE 85.0 U/L (34-145); MB/CK RELATIVE INDEX 2.0 (< OR =4)
[2025-07-18] MEDS: FUROSEMIDE 100 MG/10 ML VIAL IV ONE (04:11)
[2025-07-18] MEDS: ENOXAPARIN 60 MG/0.6 ML SYRINGE (J1650 PER 10MG) SC ONE (07:48)
[2025-07-18] MEDS ORDERED: GLIP2.5T52 PO (07:56)
[2025-07-18] MEDS ORDERED: FLUC150T9 (07:56)
[2025-07-18] MEDS ORDERED: LANTINJ4 SQ (07:56)
[2025-07-18] MEDS ORDERED: GLIM1TAB84 PO (07:56)
[2025-07-18] MEDS ORDERED: DEXTROSE 50% 50 ML SYRINGE IV PRN (12:05)
[2025-07-18] MEDS ORDERED: GLUCAGON INJ 1 MG VIAL SC PRN (12:05)
[2025-07-18] MEDS ORDERED: ALBUTEROL SULFATE 2.5 MG/0.5 ML INH CONCENTRATE NEB SOLN NEB PRN (12:05)
[2025-07-18] MEDS ORDERED: GLUCOSE 4 GM CHEW PO PRN (12:05)
[2025-07-18] MEDS ORDERED: ACETAMINOPHEN *IV* 1,000 MG in IV 1 EA IV PRN (12:05)
[2025-07-18] MEDS ORDERED: METO10TA2 PO (12:33)
[2025-07-18 12:37] VITALS: BP 161/74
[2025-07-18] MEDS: ATORVASTATIN 20 MG TAB PO ONE (12:38)
[2025-07-18] MEDS ORDERED: DONE5TAB82 PO (12:38)
[2025-07-18] MEDS: ASPIRIN 81 MG CHEWABLE TABLET PO ONE (12:40)
[2025-07-18] MEDS ORDERED: HOME MED LIST COMPLETE! XX SCH (12:40)
[2025-07-18] MEDS: PANTOPRAZOLE 40MG VIAL IV ONE (12:41)
[2025-07-18] MEDS: cefTRIAXone SOD 1 GM in DEXTROSE 5% (D5W) ADV/MINI-BAG 50 ML IV SCH (12:45)
[2025-07-18] MEDS: DOXYCYCLINE HYCLATE 100 MG TABLET PO ONE (13:25)
[2025-07-18] MEDS ORDERED: NITROGLYCERIN 0.4 MG SUBL TABLET SL PRN (13:25)
[2025-07-18 13:42] LABS: PLATELET COUNT, AUTOMATED 265 10^3/uL (150-450)
[2025-07-18] MEDS: ALBUTEROL 90 MCG/ACT 8 GM HFA INHALER INH SCH (14:01)
[2025-07-18] MEDS: INSULIN LISPRO (NovoLOG) PER UNIT SC SCH (14:04)
[2025-07-18] MEDS: PREGABALIN 100 MG CAP PO SCH (14:04)
[2025-07-18] MEDS: DONEPEZIL 5 MG TAB PO SCH (14:05)
[2025-07-18] MEDS: LR 1,000 ML IV SCH (14:05)
[2025-07-18 14:09] LABS: ALT/SGPT 30 U/L (7.0-40); AST/SGOT 18 U/L (<34); C REACTIVE PROTEIN QUANTITATIV < 0.50 MG/DL (<1.0); CALCIUM LEVEL 8.4 MG/DL (8.3-10.6); CARBON DIOXIDE LEVEL 24 MMOL/L (20-31); CHLORIDE LEVEL 105 MMOL/L (98-107); CREATININE FOR GFR 0.53 MG/DL (0.55-1.30); GLOMERULAR FILTRATION RATE > 90.0 (>39); POTASSIUM SERUM 3.6 MMOL/L (3.5-5.1); SODIUM LEVEL 140 MMOL/L (136-145)
[2025-07-18] MEDS: HEPARIN DRIP 25,000 UNITS in IV 1 EA IV SCH (20:25)
[2025-07-18] MEDS: hydrALAZINE 20 MG/ML 1 ML VIAL IV STA (20:46)
[2025-07-18] MEDS: PANTOPRAZOLE 40MG TAB PO SCH (21:22)
[2025-07-18] MEDS: DOXYCYCLINE HYCLATE 100 MG TABLET PO SCH (21:22)
[2025-07-19] MEDS ORDERED: **hydrALAZINE** 10 MG TAB PO PRN (06:15)
[2025-07-19 07:00] VITALS: BP 166/72; TEMP 98.6; O2SAT 95
[2025-07-19] MEDS ORDERED: amLODIPine 10 MG TAB PO ONE (07:00)
[2025-07-19] MEDS ORDERED: ASPIRIN 81 MG ENTERIC TABLET PO SCH (09:00)
[2025-07-19] MEDS ORDERED: ATORVASTATIN 20 MG TAB PO SCH (09:00)
[2025-07-20] MEDS ORDERED: amLODIPine 10 MG TAB PO SCH (09:00)
== END 2025-07-19 07:06 | disposition short-term general hospital (02) ==
LOC: M ED 20:18
DX: I20.0 Unstable angina (principal); J96.00 Acute respiratory failure, unspecified whether with hypoxia or hypercapnia; I50.22 Chronic systolic (congestive) heart failure; I25.2 Old myocardial infarction; E11.9 Type 2 diabetes mellitus without complications; I11.0 Hypertensive heart disease with heart failure; E78.5 Hyperlipidemia, unspecified; G47.33 Obstructive sleep apnea (adult) (pediatric); Z88.0 Allergy status to penicillin; Z88.5 Allergy status to narcotic agent; Z88.8 Allergy status to other drugs, medicaments and biological substances; Z79.51 Long term (current) use of inhaled steroids; Z79.1 Long term (current) use of non-steroidal anti-inflammatories (NSAID); Z79.4 Long term (current) use of insulin; Z79.899 Other long term (current) drug therapy; Z79.84 Long term (current) use of oral hypoglycemic drugs
CPT/HCPCS: 71046; 71275; 76705; 80048; 80053; 80076; 81001; 82550; 82553; 83690; 83880; 84145; 84484; 85025; 85027; 85730; 86140; 87486; 87581; 87633; 87798; 93005; 94640; 96365; 96366; 96367; 96372; 96375; 99285; J0134; J0360; J0696; J1650; J1815; J1938; J2470; Q9967